=== PATIENT | female | born 1955 | race Caucasian/White ===

== ENCOUNTER → 2016-06-19 | Outpatient (REF) | payer OTHER ==
[~2016-06-19] MED LIST: ASPI81TA85 PO; BENA10TA PO; BIOT50004 PO; FERR325T3 PO; MULTTAB33 PO; OMEP40CA2 PO; PROC2.5C PR; VITA10002 PO; VITA100037 PO
[2016-06-19 13:39] LABS: TOTAL IRON BINDING CAPACITY 435 UG/DL (250-450)
[2016-06-19 13:56] LABS: VITAMIN B12 LEVEL > 2000 PG/ML
[2016-06-19 13:57] LABS: FOLATE > 24.0 NG/ML
== END ==
LOC: M LAB REF 12:28
PROVIDERS: ATTEND Internal Medicine
DX: D64.9 Anemia, unspecified (principal)

== ENCOUNTER → 2017-07-18 | Outpatient (REF) | payer OTHER ==
[2017-07-18 14:32] LABS: FOLATE 14.3 NG/ML; VITAMIN B12 LEVEL > 2000 PG/ML
[2017-07-18 14:52] LABS: IRON (FE) 37 UG/DL (50-170); PERCENT SATURATION 8.3 % (13.2-45.0); TOTAL IRON BINDING CAPACITY 445 UG/DL (250-450)
== END ==
LOC: M LAB REF 13:31
DX: D50.9 Iron deficiency anemia, unspecified (principal); Z98.84 Bariatric surgery status

== ENCOUNTER → 2017-07-24 | Outpatient (REF) | payer OTHER ==
[2017-07-24 13:57] LABS: INR 1.03; PROTHROMBIN TIME 13.6 SECONDS (12.4-14.5)
[2017-07-24 13:58] LABS: PARTIAL THROMBOPLASTIN TIME 29.4 SECONDS (26.8-37.9)
== END ==
LOC: M LAB REF 13:17
DX: M47.816 Spondylosis without myelopathy or radiculopathy, lumbar region (principal); M48.061 Spinal stenosis, lumbar region without neurogenic claudication; M51.36 Other intervertebral disc degeneration, lumbar region

== ENCOUNTER 2017-08-27 09:54 | Emergency (ER) | payer OTHER ==
[2017-08-27] MEDS: DERMABOND TOPICAL SKIN ADHESIVE TOP (10:30)
[2017-08-27] MEDS: ADACEL/BOOSTRIX VACCINE (DIPHTH/PERTUSS/ACELL/TETANUS)0.5ML SYR (90715) IM (10:36)
== END 2017-08-27 12:13 | disposition home or self-care (01) ==
LOC: M ED 12:13
DX: S68.021A Partial traumatic metacarpophalangeal amputation of right thumb, initial encounter (principal); W29.0XXA Contact with powered kitchen appliance, initial encounter; Y92.89 Other specified places as the place of occurrence of the external cause; I10 Essential (primary) hypertension; E11.9 Type 2 diabetes mellitus without complications; K21.9 Gastro-esophageal reflux disease without esophagitis; Z98.84 Bariatric surgery status; Z88.8 Allergy status to other drugs, medicaments and biological substances; Z79.899 Other long term (current) drug therapy; Z79.82 Long term (current) use of aspirin
CPT/HCPCS: 90715

== ENCOUNTER → 2018-01-22 | Outpatient (REF) | payer OTHER ==
[2018-01-22 18:47] LABS: IRON (FE) 54 UG/DL (50-170); PERCENT SATURATION 12.4 % (13.2-45.0); TOTAL IRON BINDING CAPACITY 437 UG/DL (250-450)
== END ==
LOC: M LAB REF 16:27
DX: Z98.84 Bariatric surgery status (principal); E61.1 Iron deficiency

== ENCOUNTER → 2018-07-08 | Outpatient (CLI) | payer OTHER ==
[~2018-07-08] MED LIST changes: -VITA100037 PO; +VITA100067 PO
--- NOTE | 2018-07-09 03:04 | REP ---
Clinical: Pain after fall. Technique: Three views of the sacrum and coccyx. Findings: The bilateral sacroiliac joints appear symmetric and essentially age-appropriate. While no definite acute fractures appreciated, lateral view cannot exclude a subtle nondisplaced fracture of the distal sacrum. Impression: Cannot exclude subtle nondisplaced fracture of the distal sacrum based on lateral radiograph. Electronically Signed by Francois Ca MD 07/09/2018 02:55 A
--- NOTE | 2018-07-09 03:07 | REP ---
Clinical: Trauma. Fall. Technique: AP, lateral, bilateral oblique and coned-down views of the lumbosacral spine. Findings: Chronic levoconvex scoliosis along with advanced multilevel degenerative changes including endplate sclerosis, osteophytosis, disc space narrowing and hypertrophic facet changes appreciated. No obvious acute fracture / compression injury or subluxation. Impression: Advanced multilevel degenerative changes. No acute fracture / compression injury or subluxation. Electronically Signed by Francois Ca MD 07/09/2018 02:58 A
== END ==
LOC: M WUC 12:20
PROVIDERS: ATTEND Physician Assistant
DX: M54.5 Low back pain (principal); M41.9 Scoliosis, unspecified; M51.9 Unspecified thoracic, thoracolumbar and lumbosacral intervertebral disc disorder; S00.03XA Contusion of scalp, initial encounter; X58.XXXA Exposure to other specified factors, initial encounter; Y92.89 Other specified places as the place of occurrence of the external cause; S06.0X1A Concussion with loss of consciousness of 30 minutes or less, initial encounter

== ENCOUNTER → 2019-02-04 | Outpatient (REF) | payer OTHER ==
[~2019-02-04] MED LIST changes: +CYAN100049 PO; -VITA10002 PO
[2019-02-04 12:26] LABS: PERCENT SATURATION 10.4 % (13.2-45.0)
== END ==
LOC: M LAB REF 11:59
PROVIDERS: ATTEND Internal Medicine
DX: D50.9 Iron deficiency anemia, unspecified (principal)

== ENCOUNTER → 2019-08-18 | Outpatient (REF) | payer OTHER ==
[~2019-08-18] MED LIST changes: -OMEP40CA2 PO; +OMEP40CA97 PO
[2019-08-18 13:37] LABS: IRON (FE) 39 UG/DL (50-170); PERCENT SATURATION 8.8 % (13.2-45.0); TOTAL IRON BINDING CAPACITY 441 UG/DL (250-450)
[2019-08-18 13:46] LABS: FOLATE 19.9 NG/ML; VITAMIN B12 LEVEL > 2000 PG/ML
== END ==
LOC: M LAB REF 12:52
PROVIDERS: ATTEND Internal Medicine
DX: Z98.84 Bariatric surgery status (principal); D50.9 Iron deficiency anemia, unspecified

== ENCOUNTER → 2019-10-13 | Outpatient (CLI) | payer OTHER ==
[~2019-10-13] MED LIST changes: +ALEV220T22 PO; -ASPI81TA85 PO; +ASPI81TA86 PO; +BENA20TA PO; +BENA25CA4 PO; +CVS5000S2 PO; +FERR325T82 PO; +METF500T13 PO; +MULT-90 PO; +NEUR600T PO; +OMEP-218 PO; +PERC5TAB12 PO; +XARE10TA PO
[2019-10-13 13:53] LABS: INR 1.15; PROTHROMBIN TIME 14.4 SECONDS (11.8-14.0)
[2019-10-13 14:00] LABS: HEMATOCRIT 39.4 % (36.0-47.0); HEMOGLOBIN 12.1 g/dl (12.0-15.5); MEAN CORPUSCULAR HEMOGLOBIN 24.6 pg (27.0-33.0); MEAN CORPUSCULAR HGB CONC 30.7 g/dl (32.0-36.5); MEAN CORPUSCULAR VOLUME 80.2 fl (80.0-96.0); PLATELET COUNT, AUTOMATED 167 10^3/uL (150-450); RED BLOOD COUNT 4.91 10^6/uL (4.00-5.40); WHITE BLOOD COUNT 5.2 10^3/uL (4.0-10.0)
[2019-10-13 14:05] LABS: ALBUMIN 3.9 GM/DL (3.2-5.2); ALT/SGPT 74 U/L (12-78); BILIRUBIN,TOTAL 0.5 MG/DL (0.2-1.0); BLOOD UREA NITROGEN 15 MG/DL (7-18); CALCIUM LEVEL 9.1 MG/DL (8.8-10.2); CARBON DIOXIDE LEVEL 28 MEQ/L (21-32); CHLORIDE LEVEL 106 MEQ/L (98-107); CREATININE FOR GFR 0.86 MG/DL (0.55-1.30); GLOMERULAR FILTRATION RATE > 60.0 (>45); GLUCOSE, FASTING 195 MG/DL (70-100); POTASSIUM SERUM 4.3 MEQ/L (3.5-5.1); SODIUM LEVEL 140 MEQ/L (136-145); TOTAL PROTEIN 7.2 GM/DL (6.4-8.2)
--- NOTE | 2019-10-13 14:34 | REP ---
Clinical: Preoperative assessment for left hip arthroplasty. Comparison: None . Technique: PA and lateral. Findings: The mediastinum and cardiac silhouette are normal. The lung barrett are clear and without acute consolidation, effusion, or pneumothorax. The skeletal structures are intact and normal. Impression: 1. No acute cardiopulmonary process. Electronically Signed by Francois Ca MD 10/13/2019 02:26 P
[2019-10-13 14:36] LABS: ERYTHROCYTE SEDIMENTATION RATE 10 mm/hr (0-30)
--- NOTE | 2019-10-13 17:34 | ECGEPIP ---
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
== END ==
LOC: M LAB 12:26
PROVIDERS: ATTEND Orthopaedic Surgery
DX: M16.12 Unilateral primary osteoarthritis, left hip (principal)

== ENCOUNTER → 2019-10-16 | Outpatient (CLI) | payer OTHER ==
[~2019-10-16] MED LIST changes: +ASPI81TA85 PO; -ASPI81TA86 PO
== END ==
LOC: M LABSMTC 13:58
PROVIDERS: ATTEND Anesthesiology
DX: Z03.818 Encounter for observation for suspected exposure to other biological agents ruled out (principal); Z11.59 Encounter for screening for other viral diseases
CPT/HCPCS: C9803; U0003

== ENCOUNTER 2019-10-19 06:43 | Inpatient (IN) | payer OTHER ==
[~2019-10-19] VITALS: Ht 170.2 cm; Wt 77.1 kg
[~2019-10-19 06:43] MED LIST changes: -BENA20TA PO; -OMEP-218 PO; -PERC5TAB12 PO; -XARE10TA PO
[2019-10-19] MEDS ORDERED: ceFAZolin 1GM VIAL (J0690 PER 500MG) As Ordered ONE (06:57)
[2019-10-19] MEDS ORDERED: TRANEXAMIC ACID 100 MG/ML 10ML VIAL As Ordered ONE (06:57)
[2019-10-19] MEDS ORDERED: EPINEPHrine INJ 1 MG/ML 1ML AMP As Ordered ONE (06:57)
[2019-10-19] MEDS ORDERED: BUPIVACAINE LIPOSOME/PF 1.3% 20ML VIAL (13.3MG/ML)(EXPAREL)(C9290 PER1MG) As Ordered ONE (06:58)
[2019-10-19] MEDS ORDERED: LR 1,000 ML IV ONE (07:00)
[2019-10-19] MEDS ORDERED: MIDAZOLAM INJ 2MG/2ML VIAL (J2250 PER 1MG) As Ordered ONE (07:12)
[2019-10-19] MEDS ORDERED: fentaNYL 100 MCG/2 ML INJECTION (J3010) As Ordered ONE (07:12)
[2019-10-19] MEDS ORDERED: LIDOCAINE 2% 100MG/5ML SDV (FOR ANES.) As Ordered ONE (07:13)
[2019-10-19] MEDS ORDERED: ONDANSETRON 4MG/2ML VIAL As Ordered ONE (07:13)
[2019-10-19] MEDS ORDERED: propofoL 200 MG/20 ML VIAL As Ordered ONE ×2 (07:13→08:17)
[2019-10-19] MEDS ORDERED: BUPIVACAINE/DEXTROSE 0.75% 2 ML AMP As Ordered ONE (07:18)
[2019-10-19] MEDS ORDERED: ceFAZolin 2 GM/D5W 50 ML IV BAG (J0690 PER 500MG) As Ordered ONE (07:35)
[2019-10-19] MEDS ORDERED: ceFAZolin SOD 2 GM in IV 1 EA IV ONE (07:45)
[2019-10-19] MEDS ORDERED: ACETAMINOPHEN 1000MG 100ML IV BTL (OFIRMEV) (J0131 PER 10MG) As Ordered ONE (08:22)
[2019-10-19] MEDS ORDERED: PHENYLephrine HCL 500 MCG/5 ML (100MCG/ML) SYRINGE (J2370) As Ordered ONE (09:04)
[2019-10-19] MEDS ORDERED: ePHEDrine SULFATE 25 MG/5 ML(5MG/ML) SYRINGE As Ordered ONE (09:04)
[2019-10-19] MEDS ORDERED: MORPHINE 2 MG/ML 1ML VIAL (J2270) IV PRN (09:30)
[2019-10-19] MEDS ORDERED: ONDANSETRON 4MG/2ML VIAL IV PRN ×2 (09:30→09:45)
[2019-10-19] MEDS ORDERED: fentaNYL 100 MCG/2 ML INJECTION (J3010) IV PRN (09:30)
[2019-10-19] MEDS ORDERED: LR 1,000 ML IV SCH (09:30)
[2019-10-19] MEDS ORDERED: MORPHINE 4 MG/ML 1ML VIAL/SYRINGE (J2270) IV PRN ×2 (09:45)
[2019-10-19] MEDS: oxyCODONE 5MG TAB PO PRN ×2 (10:14→12:03)
--- NOTE | 2019-10-19 11:21 | IPN ---
DATE: 10/19/2019 The patient is seen and examined. She wishes to go ahead with a left total hip arthroplasty. We consented her again today. She unfortunately did not show up to her office history and physical on Saturday, 3 days ago. So, Heidi Sen is doing that history and physical right now. She is aware of the nature of the procedure, the risks of bleeding, infection, damage to nerves, vessels, persistent pain, wear loosening, dislocation, leg length inequality, blood clots, medical problems, , among others. We will plan on doing a left total hip arthroplasty.
[2019-10-19] MEDS ORDERED: oxyCODONE 5MG TAB As Ordered ONE (12:02)
[2019-10-19 13:20] VITALS: BP 113/80
[2019-10-19 13:50] VITALS: BP 115/78
[2019-10-19 14:50] VITALS: BP 118/76
[2019-10-19 15:50] VITALS: BP 123/74
[2019-10-19] MEDS ORDERED: GABAPENTIN 300 MG CAP PO PRN (16:00)
--- NOTE | 2019-10-19 16:00 | CR.PDOC ---
General Date of Consultation: Oct 19, 2019 Consultation REASON FOR CONSULTATION/CHIEF COMPLAINT: Medical management HISTORY OF PRESENT ILLNESS: Patient is 64 years old female with past medical history of hypertension, osteoarthritis presented to the hospital for elective left hip arthroplasty which was done today. Patient denied fever or chills, chest pain, shortness of breath, palpitations, diarrhea or dysuria ALLERGIES: Please see below. HOME MEDICATIONS: Please see below. PAST MEDICAL HISTORY: Hypertension, osteoarthritis, GERD, type 2 diabetes well-controlled PAST SURGICAL HISTORY: Tonsillectomy, treatment for bilateral carpal tunnel syndrome, D&C times 2, laparoscopy with biopsy and D&C. Gastric bypass surgery FAMILY HISTORY:Her mother had diabetes, heart disease, and hypertension. She in 1996. Father had colon cancer SOCIAL HISTORY: Former smoker, no alcohol abuse, no drug abuse history REVIEW OF SYSTEMS: 10 point review system negative except as listed above PHYSICAL EXAMINATION: VITAL SIGNS: Please see below. GENERAL: awake, alert, NAD HEENT: NCAT, anicteric sclera, ANNAMARIE NECK: supple, no JVD CARDIOVASCULAR EXAMINATION: NS1S2, regular rate/rhythm RESPIRATORY EXAMINATION: CTA b/l, no wheezes/rales/rhonchi ABDOMINAL EXAMINATION: positive bowel sounds x 4, NT EXTREMITIES: no cyanosis, clubbing, left hip brace SKIN: warm, no rashes. NEUROLOGICAL EXAMINATION: AAO x 3, no motor/sensory deficits PSYCHIATRIC EXAMINATION: calm, normal affect LABORATORY DATA: Please see below. ASSESSMENT/PLAN: Patient is 64 years old female with past medical history of hypertension, osteoarthritis presented to the hospital for elective left hip arthroplasty which was done today. Patient denied fever or chills, chest pain, shortness of breath, palpitations, diarrhea or dysuria Status post left hip arthroplasty Continue pain management Hypertension Continue home meds GERD Continue PPI Type 2 diabetes Diabetes diet Continue metformin Vital Signs/I&O Vital Signs Date Time Temp Pulse Resp B/P (MAP) Pulse Ox O2 Delivery O2 Flow Rate FiO2 10/19/19 13:50 97.3 84 16 115/78 (90) 99 10/19/19 13:20 2.0 10/19/19 13:15 Nasal Cannula Laboratory Data Labs 24H Laboratory Tests 2 10/19/19 07:15: Bedside Glucose (Misc Panel) 132H Allergies Coded Allergies: iron (Verified Allergy, Intermediate, INFUSION - RASH ITCHY, 10/14/19) ENVIROMENTAL (Verified Allergy, Unknown, 10/14/19) ezetimibe (Verified Allergy, Unknown, 10/14/19) sitagliptin (Verified Allergy, Unknown, 10/14/19) Home Medications Scheduled Aspirin (Aspir 81) 81 Mg Tab, 81 MG PO DAILY, (Reported) Benazepril Hcl (Benazepril HCl) 10 Mg Tab, 20 MG PO DAILY, (Reported) Biotin (Biotin) 5,000 Mcg Cap, 5,000 MCG PO DAILY, (Reported) Cyanocobalamin (Vitamin B-12) (Vitamin B12) 5,000 Mcg Tab.rapdis, 5,000 MCG PO DAILY, (Reported) Diphenhydramine HCl (Benadryl) 25 Mg Capsule, 25 MG PO PRN, (Reported) Gabapentin (Neurontin) 600 Mg Tablet, 600 MG PO QIDP, (Reported) Metformin HCl (Metformin HCl) 500 Mg Tablet, 500 MG PO DAILY, (Reported) Multivitamin (Multivitamin) 1 Each Tablet, 1 EACH PO DAILY, (Reported) Omeprazole (Omeprazole) 40 Mg Cap, 20 MG PO BID, (Reported) Scheduled PRN Naproxen Sodium (Aleve) 220 Mg Tablet, 220 MG PO PRN PRN for PAIN, (Reported) FRANCES AKINS DO Oct 19, 2019 16:00
[2019-10-19] MEDS: PERCOCET 5MG/325MG TAB PO PRN (16:03)
[2019-10-19] MEDS: LR 1,000 ML IV SCH ×2 (16:04→23:48)
[2019-10-19] MEDS: ceFAZolin SOD 2 GM in IV 1 EA IV SCH (16:04)
[2019-10-19] MEDS ORDERED: OMEP-218 PO (16:15)
[2019-10-19] MEDS ORDERED: BENA20TA PO (16:15)
[2019-10-19 17:00] VITALS: BP 123/75
[2019-10-19] MEDS: metFORMIN (GLUCOPHAGE) 500 MG TAB PO SCH (18:41)
[2019-10-19] MEDS: OMEPRAZOLE 20 MG CAP PO SCH (20:34)
[2019-10-19 22:00] VITALS: BP 122/79
[2019-10-20] MEDS: ceFAZolin SOD 2 GM in IV 1 EA IV SCH (00:24)
[2019-10-20] MEDS: PERCOCET 5MG/325MG TAB PO PRN (01:16)
[2019-10-20 06:00] VITALS: BP 166/81
[2019-10-20 06:30] LABS: HEMATOCRIT 34.4 % (36.0-47.0); HEMOGLOBIN 10.8 g/dl (12.0-15.5); MEAN CORPUSCULAR HEMOGLOBIN 24.7 pg (27.0-33.0); MEAN CORPUSCULAR HGB CONC 31.4 g/dl (32.0-36.5); MEAN CORPUSCULAR VOLUME 78.5 fl (80.0-96.0); PLATELET COUNT, AUTOMATED 122 10^3/uL (150-450); RED BLOOD COUNT 4.38 10^6/uL (4.00-5.40); WHITE BLOOD COUNT 7.5 10^3/uL (4.0-10.0)
[2019-10-20] MEDS ORDERED: PERCOCET 5MG/325MG TAB PO PRN (06:45)
[2019-10-20 06:55] LABS: BLOOD UREA NITROGEN 12 MG/DL (7-18); CALCIUM LEVEL 8.6 MG/DL (8.8-10.2); CARBON DIOXIDE LEVEL 29 MEQ/L (21-32); CHLORIDE LEVEL 106 MEQ/L (98-107); CREATININE FOR GFR 0.67 MG/DL (0.55-1.30); GLOMERULAR FILTRATION RATE > 60.0 (>45); GLUCOSE, FASTING 145 MG/DL (70-100); MAGNESIUM LEVEL 1.9 MG/DL (1.8-2.4); POTASSIUM SERUM 4.1 MEQ/L (3.5-5.1); SODIUM LEVEL 140 MEQ/L (136-145)
[2019-10-20] MEDS ORDERED: XARE10TA PO (07:09)
[2019-10-20] MEDS ORDERED: PERC5TAB12 PO (07:09)
[2019-10-20] MEDS: metFORMIN (GLUCOPHAGE) 500 MG TAB PO SCH (08:00)
[2019-10-20] MEDS: OMEPRAZOLE 20 MG CAP PO SCH (08:08)
[2019-10-20] MEDS ORDERED: MIRALAX *UNIT DOSE* 17GM PACKET PO SCH (09:00)
[2019-10-20] MEDS ORDERED: ASPIRIN 81 MG ENTERIC TAB PO SCH (09:00)
[2019-10-20] MEDS ORDERED: MOM 30ML SUSPENSION UDC PO SCH (09:00)
--- NOTE | 2019-10-20 10:21 | REP ---
LEFT HIP: Two views. HISTORY: Postop. FINDINGS: AP and lateral views of the left hip demonstrate a left hip arthroplasty in good position. Lateral skin dalia are seen. Periarticular soft tissue emphysema is seen. Mild vascular calcification is noted. IMPRESSION: Left hip arthroplasty. Electronically Signed by Rufus Aguilar MD 10/20/2019 11:16 A
[2019-10-20] MEDS ORDERED: RIVAROXABAN 10 MG TAB (XARELTO) PO SCH (18:00)
--- NOTE | 2019-10-21 10:39 | RO ---
DATE OF PROCEDURE: 10/19/2019 PREOPERATIVE DIAGNOSIS: Left hip osteoarthritis. POSTOPERATIVE DIAGNOSIS: Left hip osteoarthritis. PROCEDURE: Left total hip arthroplasty with the standard [place], size 7, + 5, 36 ball and a 52 acetabular component. SURGEON: Dr. Dewayne Sen [employer] PREP TEACHER: RADHA Victor ANESTHESIA: Spinal ESTIMATED BLOOD LOSS: 200. COMPLICATIONS: None. INDICATIONS: 64-year-old who has had gradually worsening left hip pain. She wished to have a hip arthroplasty. She understood the nature of this and the risks associated with it. Preoperative clearance was obtained. DESCRIPTION OF PROCEDURE: The patient was taken to the operative and placed in a supine position after spinal anesthesia was induced. She was then turned into the right lateral decubitus position on the [place] positioner and the left hip was prepped and draped in the usual sterile fashion. A time out was performed. A longitudinal incision was made over the lateral aspect of the left hip. Sharp dissection was carried down through subcutaneous tissue until the fascia was encountered. The fascia was fairly thin proximally, but I did divide this and then exposed the anterolateral aspect of the hip, dividing the anterior 40% of the abductor off. We gradually externally rotated the hip and dislocated it without difficulty. I then used a canal initiating reamer, the canal finding reamer and the lateralizing reamer and sequentially reamed up to a size 7, which had good purchase and this is what was templated to. I then made the neck cut at about three-quarters of a fingerbreadth up from the lesser trochanter and removed the ball. We directed our attention to the acetabulum. Anterior and posterior retractors were placed. With some difficulty, I was able to remove the labrum and soft tissue from around the acetabulum and realized that I needed to medialize it a few millimeters. I then sequentially reamed up to a size 51, which had good concentric reaming and good bleeding bone. I then placed the actual acetabular component after irrigating, impacted it in place in the appropriate amount of anteversion and horizontal tilt, and excellent fit was noted. We made sure it was well seated. The apex hole eliminator was placed and the 36 x 52 liner was then inserted and was impacted in place until it was well seated. We directed our attention back to the femur and gradually broached up to a size 7, which had a good fit and fill. I did also remove some osteophytes from the anterior and posterior aspect the acetabulum. A trial reduction was performed with a 1.5 and a 5 neck length and at this point I had some difficulty even with both sizes getting it over the anterior aspect the acetabulum. I think there was some soft tissue in the way and I was a little bit concerned about scuffing of the head, so I ended up just selecting a standard metal head. I was concerned about abrading the ceramic head, and a metal on poly I think is certainly very acceptable in her age group. Once I was satisfied with the reductions and once the hip was reduced, actually the +5 seemed to have the best stability. There was minimal shuck in full extension, excellent stability in extension and external rotation and flexion and internal rotation. We redislocated the hip, removed the trial components, irrigated, and impacted in the actual size 7 standard stem and seated it down. Dried the [place] taper and impacted on the +5, 36 ball and then had irrigated and placed the TXA deep in the tissues and the Exparel deep in the tissues. Then reduced the hip and I was able to get the soft tissue out of the way and bring the head around into the acetabular component without too much difficulty. I then trialed the hip, put it through a range of motion and was very pleased with the stability. Soft tissue tension was appropriate. I then copiously irrigated, repaired the minimus with #1 Vicryl suture, the abductor with #1 Vicryl suture through several bone holes, and the fascia lucas with #1 Vicryl suture and running Stratafix suture in both directions. I then irrigated and we closed the subcutaneous with #2-0 Vicryl and the skin with dalia. Sterile dressing was applied. She has taken to recovery room in stable condition. There were no known complications. The plan will be routine postoperative. The family services assistant was instrumental in holding retractors, assisting in reducing and dislocating the hip and assisting in wound closure.
== END 2019-10-20 12:17 | disposition home or self-care (01) | DRG 470 ==
LOC: M OR 06:43 → M MS5PR 13:16
PROVIDERS: ADMIT Orthopaedic Surgery; ATTEND Orthopaedic Surgery
PROC: 0SRB02Z Replacement of Left Hip Joint with Metal on Polyethylene Synthetic Substitute, Open Approach (ICD-10-PCS; principal; 2019-10-19 07:30)
DX: M16.12 Unilateral primary osteoarthritis, left hip (principal); I10 Essential (primary) hypertension; K21.9 Gastro-esophageal reflux disease without esophagitis; E11.9 Type 2 diabetes mellitus without complications; J30.9 Allergic rhinitis, unspecified; Z98.84 Bariatric surgery status; Z87.891 Personal history of nicotine dependence; Z79.84 Long term (current) use of oral hypoglycemic drugs; Z79.899 Other long term (current) drug therapy; Z79.82 Long term (current) use of aspirin; Z88.8 Allergy status to other drugs, medicaments and biological substances

== ENCOUNTER → 2020-02-17 | Outpatient (REF) | payer OTHER ==
[~2020-02-17] MED LIST changes: -ASPI81TA85 PO; +ASPI81TA86 PO; +BENA20TA PO; +OMEP-218 PO; +PERC5TAB12 PO; +XARE10TA PO
[2020-02-17 13:01] LABS: PERCENT SATURATION 8.1 % (13.2-45.0)
== END ==
LOC: M LAB REF 11:29
PROVIDERS: ATTEND Internal Medicine
DX: Z98.84 Bariatric surgery status (principal)

== ENCOUNTER → 2020-03-21 | Outpatient (REF) | payer OTHER ==
[2020-03-21 15:54] LABS: PERCENT SATURATION 8.3 % (13.2-45.0)
== END ==
LOC: M LAB REF 11:25
PROVIDERS: ATTEND Internal Medicine
DX: D50.9 Iron deficiency anemia, unspecified (principal)

== ENCOUNTER → 2020-06-01 | Outpatient (CLI) | payer OTHER ==
[~2020-06-01] MED LIST changes: +ISOVUE-300 61% 50ML VIAL As Ordered ONE; +LIDOCAINE 1% MDV 20ML VIAL As Ordered ONE; +methylPREDNISolone SUSP 40MG/ML 1ML VIAL (DEPO MEDROL) As Ordered ONE
--- NOTE | 2020-06-02 08:10 | REP ---
INDICATION: RIGHT HIP OSTEOARTHRITIS. COMPARISON: None TECHNIQUE: The procedure was performed by GERARDO Craig, under the direct supervision of Dr. Aguilar. The benefits and risks of the procedure were explained to the patient, and an informed consent was obtained. Directly prior to the start of the procedure, a formal time-out was completed in the procedure room. The right femoral neck joint space was localized using fluoroscopic guidance. The skin was prepped and draped in a sterile fashion. Approximately 5 mL of 1% Lidocaine 10 mg/ml was used as a local anesthetic. Using fluoroscopic guidance, a #22 gauge spinal needle was inserted and advanced into the right femoral neck joint space. Approximately 1 mL of Isovue 300 was injected to verify placement. Five mL of a solution containing 3 mL 1% lidocaine 10 mg/ml and 2 mL Depo-Medrol 40 milligrams/milliliter was injected into the joint space. The needle was removed and hemostasis was achieved. FINDINGS: The patient tolerated the procedure well and there were no immediate complications. IMPRESSION: 1. Right hip pain injection under fluoroscopic guidance. 0.1 minutes of fluoroscopy time was utilized for this procedure. Some fluoroscopic images are performed with last image hold technology. These images require no additional radiation. <Electronically signed by Nanci Upton > 06/01/20 1620 <Electronically signed by Scar Aguilar > 06/02/20 [id number]
== END ==
LOC: M RADPRO 10:42
PROVIDERS: ATTEND Physician Assistant Surgical
DX: M16.11 Unilateral primary osteoarthritis, right hip (principal)
CPT/HCPCS: 20610; 77002; J1030; Q9967

== ENCOUNTER → 2020-08-02 | Outpatient (CLI) | payer OTHER ==
[~2020-08-02] MED LIST changes: -ISOVUE-300 61% 50ML VIAL As Ordered ONE; -LIDOCAINE 1% MDV 20ML VIAL As Ordered ONE; -methylPREDNISolone SUSP 40MG/ML 1ML VIAL (DEPO MEDROL) As Ordered ONE
--- NOTE | 2020-08-02 11:54 | REP ---
INDICATION: TROCHANTERIC BURSITIS RIGHT HIP injury July 2019 in October 2019, pain COMPARISON: None. TECHNIQUE: Coronal T1, STIR through the pelvis, axial, coronal, sagittal T2 fat sat right hip. FINDINGS: The visualized osseous structures demonstrate normal bone marrow signal. There is no bone marrow edema or occult fracture. There is no evidence of avascular necrosis. There is a tear of the posterior labrum particularly superiorly. There is also a tear of the anterior labrum. There is ill-defined high signal on T2 weighted images along the greater trochanter within tendinous structures, compatible with greater trochanteric tendonobursitis. Other surrounding soft tissue structures demonstrate no abnormal signal. There is artifact noted from the metallic prosthesis of the left hip. The visualized intrapelvic structures are unremarkable. IMPRESSION: Anterior and posterior labral tears. Findings compatible with greater trochanteric tendonobursitis. <Electronically signed by Eddie Burrows > 08/02/20 [id number]
== END ==
LOC: M RAD 09:54
PROVIDERS: ATTEND Orthopaedic Surgery
DX: M70.61 Trochanteric bursitis, right hip (principal); S73.191A Other sprain of right hip, initial encounter; Y92.9 Unspecified place or not applicable; Y93.9 Activity, unspecified; Y99.9 Unspecified external cause status

== ENCOUNTER → 2020-08-17 | Outpatient (REF) | payer OTHER ==
[2020-08-17 18:30] LABS: FOLATE > 24.0 NG/ML; VITAMIN B12 LEVEL > 2000 PG/ML
== END ==
LOC: M LAB REF 16:26
PROVIDERS: ATTEND Internal Medicine
DX: D50.9 Iron deficiency anemia, unspecified (principal); Z98.84 Bariatric surgery status

== ENCOUNTER → 2020-08-26 | Outpatient (CLI) | payer OTHER ==
[~2020-08-26] MED LIST changes: +ISOVUE-300 61% 50ML VIAL As Ordered ONE; +LIDOCAINE 1% MDV 20ML VIAL As Ordered ONE; +TRIAMCINOLONE ACETONIDE SUSP 40 MG/ML VIAL (J3301) As Ordered ONE
--- NOTE | 2020-08-26 16:19 | REP ---
INDICATION: TROCHANTERIC BURSITIS RT HIP. COMPARISON: None. TECHNIQUE: The procedure was performed under the direct supervision of Dr. Aguilar. The benefits and risks including but not limited to pain infection and bleeding and anaphylaxis were explained to the patient and informed consent was obtained. The right femoral neck was localized using fluoroscopic guidance. The skin was prepped and draped in a sterile fashion. 1% lidocaine was used as a local anesthetic. Using fluoroscopic guidance, and last image hold technology, a 22-gauge spinal needle was inserted and advanced to the femoral neck. 0.5 ml of Isovue-300 was injected to verify placement. Six ml of a solution containing 5 ml of 1% Xylocaine and 1 mL of Kenalog 40 mg was injected. The needle was then removed. The patient tolerated the procedure well and there were no immediate complications. Less than 6 seconds of fluoro time was utilized for this procedure. FINDINGS: None IMPRESSION: Fluoro guidance for right hip injection. <Electronically signed by Shan Samaniego > 08/26/20 1608 <Electronically signed by Scar Aguilar > 08/26/20 1619
== END ==
LOC: M RADPRO 13:24
PROVIDERS: ATTEND Orthopaedic Surgery
DX: M70.61 Trochanteric bursitis, right hip (principal)
CPT/HCPCS: 20610; 77002; J3301; Q9967

== ENCOUNTER → 2020-11-17 | Outpatient (CLI) | payer OTHER ==
[~2020-11-17] MED LIST changes: -ISOVUE-300 61% 50ML VIAL As Ordered ONE; -LIDOCAINE 1% MDV 20ML VIAL As Ordered ONE; +OMEP40CA4 PO; -OMEP40CA97 PO; -TRIAMCINOLONE ACETONIDE SUSP 40 MG/ML VIAL (J3301) As Ordered ONE
--- NOTE | 2020-11-17 10:22 | REP ---
INDICATION: RIGHT HIP OSTEOARTHRITIS - LABS AND EKG FIRST. COMPARISON: Comparison chest x-ray October 13, 2019. TECHNIQUE: Two views.. FINDINGS: The lungs are well inflated and free of infiltrate. The pleural angles are sharp. The heart size is normal. Pulmonary vasculature is not increased. No significant bony abnormality is seen. IMPRESSION: Negative chest x-ray. <Electronically signed by Scar Aguilar > 11/17/20 [id number]
[2020-11-17 10:42] LABS: MEAN CORPUSCULAR HEMOGLOBIN 21.6 pg (27.0-33.0); MEAN CORPUSCULAR HGB CONC 29.4 g/dl (32.0-36.5); MEAN CORPUSCULAR VOLUME 73.6 fl (80.0-96.0); PLATELET COUNT, AUTOMATED 196 10^3/uL (150-450); RED BLOOD COUNT 4.62 10^6/uL (4.00-5.40); WHITE BLOOD COUNT 5.8 10^3/uL (4.0-10.0)
[2020-11-17 10:56] LABS: INR 0.99; PROTHROMBIN TIME 13.3 SECONDS (12.5-14.3)
[2020-11-17 11:09] LABS: ERYTHROCYTE SEDIMENTATION RATE 17 mm/hr (0-30)
[2020-11-17 11:14] LABS: ALBUMIN 3.9 GM/DL (3.2-5.2); ALT/SGPT 55 U/L (12-78); BILIRUBIN,TOTAL 0.4 MG/DL (0.2-1.0); BLOOD UREA NITROGEN 15 MG/DL (7-18); CALCIUM LEVEL 9.3 MG/DL (8.8-10.2); CARBON DIOXIDE LEVEL 27 MEQ/L (21-32); CHLORIDE LEVEL 110 MEQ/L (98-107); CREATININE FOR GFR 0.91 MG/DL (0.55-1.30); GLOMERULAR FILTRATION RATE > 60.0 (>45); GLUCOSE, FASTING 103 MG/DL (70-100); POTASSIUM SERUM 4.8 MEQ/L (3.5-5.1); SODIUM LEVEL 143 MEQ/L (136-145)
--- NOTE | 2020-11-19 18:23 | ECGEPIP ---
[facility] Test Date: 2020-11-17 Pat Name: JABARI DUGAN Department: Room: - Gender: Female Telemedicine Physician: rf : [id number] Requested By: Dewayne Sen Order Number: [id number] Reading MD: Adebayo Miles Measurements Intervals [place] Rate: 69 P: 78 MT: 104 QRS: 39 QRSD: 96 T: 19 QT: 374 QTc: 400 Interpretive Statements Sinus rhythm with short MT RSR' IN V1 OR V2, PROBABLY NORMAL VARIANT (NEW) Last tracing on 10/13/19, 12:45 Electronically Signed on 11-19-2020 18:23:08 EDT by Adebayo Miles
== END ==
LOC: M LAB 09:40
PROVIDERS: ATTEND Orthopaedic Surgery
DX: M16.11 Unilateral primary osteoarthritis, right hip (principal)

== ENCOUNTER → 2021-01-27 | Outpatient (CLI) | payer OTHER ==
--- NOTE | 2021-01-27 15:03 | REP ---
INDICATION: RT LEG PAIN SWELLING ? DVT. COMPARISON: None. TECHNIQUE: Multiple ultrasonographic images of the deep venous structures of the right lower extremity were obtained from the inguinal ligament to the ankle. Venous compression techniques, color doppler imaging, and augmentation techniques were also obtained where appropriate. As per the ACR guidelines the anterior tibial vein can not be effectively evaluated. Only compression techniques in the calf on the peroneal and posterior tibial veins was attempted/performed. FINDINGS: There is no abnormal echogenic material seen within any of the visualized deep venous structures that would suggest acute thrombosis. Coaptation is unremarkable throughout. Doppler interrogation shows an expected response to respiratory variability and augmentation in the thigh. Compression techniques in the calf were unobtainable. The color flow images show what appears to be a normal vascular pattern throughout the thigh. Seen in the right posterior popliteal fossa a 3.5 x 0.5 x 2.3 cm sized mixed but predominantly cystic area was identified. IMPRESSION: There is no ultrasonographic evidence of deep venous thrombosis involving any of the visualized deep venous structures of the right lower extremity as described above. Due to technical parameters calf vein DVT can not be ruled out. 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 <Electronically signed by Rui Birmingham > 01/27/21 [id number]
== END ==
LOC: M RAD 14:16
PROVIDERS: ATTEND Orthopaedic Surgery
DX: M79.661 Pain in right lower leg (principal)

== ENCOUNTER 2021-03-02 15:15 | Emergency (ER) | payer MEDICARE, OTHER ==
[~2021-03-02] VITALS: Ht 170.2 cm; Wt 83.7 kg
[~2021-03-02 15:15] MED LIST changes: -XARE15TA PO
[2021-03-02 15:16] VITALS: BP 163/75
--- OUTSIDE RECORDS SUMMARY | 2021-03-02 15:22 | CCD | Continuity of Care Document ---
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 Essential hypertension Amadeo Estrada MD Onset: 1 Diabetes mellitus Amadeo Estrada MD Onset: 04/16/2011 Nonproliferative retinopathy due to diabetes mellitus Eliane Falk RN Canp Onset: 04/16/2011 Type 2 diabetes mellitus RADHA Muhammad Onset: 02/20/20 17 Social History Type Date Description Comments Sex Unknown ETOH Use Denies alcohol use Tobacco Use Start: Unknown Patient has never smoked Allergies, Adverse Reactions, Alerts Active Allergies Criticality Reaction | Severity Comments Date Iron Unable to assess criticality 06/19/2016 Medications Active Medications SIG Qnty Indications Ordering Provide r Date Hydrocodone Bitartrate/Acetaminophen 5-325mg Tablets Take 1 Tablet By Mouth AT Bedtime, Surg Date 12/07/2020 25tabs Z47.1 Dewayne Nickerson MD 01/09/2021 Z96.641 Xarelto 10mg Tablets 1 tab by mouth daily for 35 days for post op hip surgery. 35tabs Dewayne tellez MD 11/03/2020 Tizanidine HCL 2mg Capsules 1 tab by mouth every day at bedtime as needed 90caps DMaged forrest MD 03/01/2020 Gabapentin 600mg Tablets take 1 tablet by mouth 4 times daily . do not exceed 4 per 24 hours 120tabs Elisa Goncalves MD 11/28/2018 Biotin 5000mcg Capsules qd Amadeo Estrada MD 09/20/2010 Vitamin D 1000Unit Tablets 1 po qd Amadeo Estrada MD 09/20/2010 Ecotrin Low Strength 81mg Tablets Amadeo Islas MD 11/01/2009 Vitamin B12 1000mcg Tablets ER 1 by mouth every day Unknown Benazepril HCL 10mg Tablets 1 by mouth every day Unknown Omeprazole 20mg Capsules DR 1 by mouth every day Unknown History Medications Mupirocin 2% Ointment apply a pea sized amount to the nasal passages 3 times a day for 5 days prior to surgery 22gm Dewayne Nickerson MD 11/03/2020 - 12/22/2020 Oxycodone HCL 5mg Capsules 1 tablets by mouth every 6 hours as needed for post op pain 20caps S migdalia Nickerson MD 11/03/2020 - 01/09/2021 Immunizations Description No Information Available Vital Signs Date Vital Result Comment 12/06/2020 12:47pm Body Temperature 97.5 F Height 65.5 inches 5'5.50" Weight 181.12 lb BMI (Body Mass Index) 29.7 kg/m2 10/03/2020 4:51pm Height 67 inches 5'7" Weight 180.00 lb BMI (Body Mass Index) 28.2 kg/m2 Results Test Acquired Date Facility Test Result H/L Range Note Comprehensive Metabolic Prof 12/08/[address] [address] Glu 127 mg/dL High 70-110 1 BUN 17 mg/dL Normal 7-23 Cre 0.665 mg/dL Normal 0.500-1.300 GFR > 60 mL/min Normal Chloride 109 mmol/L Normal 99-110 Na 143 mmol/L Normal 136-147 Potassium 4.7 mmol/L Normal 3.5-5.1 Tco2 27 mmol/L Normal 20-33 Anion Gap 11.7 Normal 10.0-20.0 CA 8.3 mg/dL Normal 8.3-10.7 Alkaline Phos 47 U/L Normal 45-117 TP 5.9 g/dL Low 6.0-7.8 Alb 2.8 g/dL Low 3.5-5.0 2 GL 3.1 g/dL Normal 2.3-3.5 A/G 0.9 Low 1.0-2.5 T. Bilirubin 0.4 mg/dL Normal 0.1-1.1 3 Alti 36 U/L Normal 6-54 4 Ast 45 U/L High 6-38 5 Laboratory test finding 12/07/2020 [facility] [address] [place] [address] Lfglu 159 mg/dL High 70-110 Type&Screen 12/02/2020 [facility] [address] [place] [address] Blood Type B POSITIVE Normal Antibody Screen NEGATIVE Normal Laboratory test finding 12/02/2020 [facility] [address] [place] [address] Bretype B POSITIVE Normal Laboratory test finding 12/02/2020 [facility] [address] [place] [address] [id number] Rheonix Negative Normal Negative 6 Prothrombin Time/Inr 11/17/[address] [address] (315)- - Prothrombin Time 13.3 seconds Normal 12.5-14.3 Inr 0.99 Normal 7 Complete Blood Count 11/17/[address] [address] (315)- - White Blood Count 5.8 10 Normal 4.0-10.0 Red Blood Count 4.62 10 Normal 4.00-5.40 Hemoglobin 10.0 g/dL Low 12.0-15.5 Hematocrit 34.0 % Low 36.0-47.0 Mean Corpuscular Volume 73.6 fl Low 80.0-96.0 Mean Corpuscular Hemoglobin 21.6 pg Low 27.0-33.0 Mean Corpuscular HGB Conc 29.4 g/dL Low 32.0-36.5 Red Cell Distribution Width 17.1 % High 11.5-14.5 Platelet Count, Automated 196 10 Normal 150-450 Nucleated Red Blood Cell % 0.0 % Normal 0-0 Laboratory test finding 11/17/2020 [facility] [address] [place] [address] (315)- - Erythrocyte Sedimentation Rate 17 mm/hr Normal 0-30 Comprehensive Metabolic Profil 11/17/2020 [facility] [address] [place] [address] (315)- - Glucose, Fasting 103 mg/dL High 70-100 Blood Urea Nitrogen 15 mg/dL Normal 7-18 Creatinine For GFR 0.91 mg/dL Normal 0.55-1.30 Glomerular Filtration Rate > 60.0 Normal >45 8 Sodium Level 143 mEq/L Normal 136-145 Potassium Serum 4.8 mEq/L Normal 3.5-5.1 Chloride Level 110 mEq/L High 98-107 Carbon Dioxide Level 27 mEq/L Normal 21-32 Anion Gap 6 mEq/L Low 8-16 Calcium Level 9.3 mg/dL Normal 8.8-10.2 Ast/Sgot 50 U/L High 7-37 Alt/SGPT 55 U/L Normal 12-78 Alkaline Phosphatase 77 U/L Normal 45-117 Bilirubin,Total 0.4 mg/dL Normal 0.2-1.0 Total Protein 7.0 GM/DL Normal 6.4-8.2 Albumin 3.9 GM/DL Normal 3.2-5.2 Albumin/Globulin Ratio 1.3 Normal 1.2-2.2 1 Patients taking Sulfasalazin e may have falsely depressed Glucose levels. Patients taking Sulfapyridine may have falsely elevated Glucose levels. Patients should be drawn for Glucose before the initial administration of either drug. 2 ESRD Dialysis patient Albumi n reference range: 2.9-4.4 g/dL 3 The Dimension [place] Total Bi lirubin is not recommended for patients undergoing treatment with eltrombopag (Promacta) due to the potential for falsely elevated results. 4 Patients taking Sulfasalazin e and/or Sulfapyridine may have falsely depressed ALT levels. Patients should be drawn for ALT before the initial administration of either drug. 5 Patients taking Sulfasalazin e and/or Sulfapyridine may have falsely depressed AST levels. Patients should be drawn for AST before the initial administration of either drug. 6 The [employer] COVID-19 MDx Ass ay is an endpoint RT-PCR assay intended for the qualitative detection of nucleic acid from SARS-CoV-2 virus. Positive results are indicative of the presence of SARS-CoV-2 RNA; clinical correlation with patient history and other diagnostic information is necessary to determine patient infection status. Negative results do not preclude SARS-CoV-2 infection and should not be used as the sole basis for patient management decisions. The Rheonix MDx Assay is only for use under the Food and Drug Administration's Emergency Use Authorization. 7 THERAPUTIC HUMAN INR VALUES INDICATIONS NORMAL RANGES PROPHYLAXIS/TREATMENT OF: VENOUS THROMBOSIS 2.0-3.0 PULMONARY EMBOLISM 2.0-3.0 PREVENTION OF SYSTEMIC EMBOLISM FROM: TISSUE HEART VALVES 2.0-3.0 ACUTE MYOCARDIAL INFARCTION 2.0-3.0 VALVULAR HEART DISEASE 2.0-3.0 ATRIAL FIBRILLATION 2.0-3.0 MECHANICAL VALVES(HIGH RISK) 2.5-3.5 RECURRENT MYOCARDIAL INFARCTION 2.5-3.5 8 Units are mL/min/1.73 m2 Chronic Kidney Disease Staging per NKF: Stage I & II GFR >=60 Normal to Mildly Decreased Stage III GFR 30-59 Moderately Decreased Stage IV GFR 15-29 Severely Decreased Stage V GFR <15 Very Little GFR Left ESRD GFR <15 on DAIRY POWDER MIXER OPERATOR Procedures Date Code Description Status 01/27/2021 91659 X-Ray Hip Unilateral With Pelvis 2-3 Views Completed 01/26/2021 58219 Therapeutic Procedure, Each 15 M inutes Completed 01/26/2021 11828 Therapeutic Procedure, Each 15 M inutes Completed 01/11/2021 55114 Therapeutic Procedure, Each 15 M inutes Completed 01/11/2021 62420 Therapeutic Procedure, Each 15 M inutes Completed 01/05/2021 16599 Therapeutic Procedure, Each 15 M inutes Completed 01/05/2021 04966 Therapeutic Procedure, Each 15 M inutes Completed 12/26/2020 14673 Physical Therapy Eval - Low Comp lexity Completed 12/07/2020 45208 Arthroplasty "Total Hip" W/ Or W /O Graft Completed 10/03/2020 90492 Office/Outpatient Established Hi gh MDM 40-54 Min Completed 10/03/2020 69447 X-Ray Pelvis Ap Only 1-2 Views C ompleted 08/15/2020 81796 Office/Outpatient Established Mo d MDM 30-39 Min Completed 08/15/2020 24838 X-Ray Hip Unilateral With Pelvis 2-3 Views Completed Medical Devices Description No Information Available Encounters Type Date Location Provider Dx Diagnosis Office Visit 01/27/2021 1:30p Caleb Nickerson MD Z96.641 Presence of right artificial hip joint M79.661 Pain in right lower leg Office Visit 12/21/2020 1:30p Crescoolivier Nickerson MD Z47.1 Aftercare following joint replacement surgery Z96.641 Presence of right artificial hip joint Office Visit 12/06/2020 10:00a Crescoolivier Nickerson PA-C Z01.818 Encounter for other preprocedural examination 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, right hip Office Visit 10/03/2020 3:30p Caleb Nickerson MD M16.11 Unilateral primary osteoarthritis, right hip M70.61 Trochanteric bursitis, right hip Office Visit 08/15/2020 2:15p Caleb Nickerson MD M16.11 Unilateral primary osteoarthritis, right hip M70.61 Trochanteric bursitis, right hip Assessments Date Code Description Provider 01/27/2021 Z96.641 Presence of right artificial hip joint Dewayne Nickerson MD 01/27/2021 M79.661 Pain in right lower leg Dewayne Nickerson MD 01/26/2021 Z47.1 Aftercare following joint replac ement surgery Krystal Peterson, CREDIT UNION EXAMINER 01/26/2021 Z96.641 Presence of right artificial hip joint Krystal Peterson, CREDIT UNION EXAMINER 01/11/2021 Z47.1 Aftercare following joint replac ement surgery Krystal Peterson, CREDIT UNION EXAMINER 01/11/2021 Z96.641 Presence of right artificial hip joint Krystal Peterson, CREDIT UNION EXAMINER 01/05/2021 Z47.1 Aftercare following joint replac ement surgery Danamarie Ortolano, CREDIT UNION EXAMINER 01/05/2021 Z96.641 Presence of right artificial hip joint Danamarie Ortolano, CREDIT UNION EXAMINER 12/26/2020 Z47.1 Aftercare following joint replac ement surgery [facility]ira Arora, [facility] 12/26/2020 Z96.641 Presence of right artificial hip joint Samira Arora, [facility] 12/21/2020 Z47.1 Aftercare following joint replac ement surgery Dewayne Nickerson MD 12/21/2020 Z96.641 Presence of right artificial hip joint Dewayne Nickerson MD 12/07/2020 M16.11 Unilateral primary osteoarthriti s, right hip Dewayne Nickerson MD 12/06/2020 Z01.818 Encounter for other preprocedura l examination Heidi Nickerson PA-C 12/06/2020 M16.11 Unilateral primary osteoarthriti s, right hip Heidi Nickerson PA-C 10/03/2020 M16.11 Unilateral primary osteoarthriti s, right hip Dewayne Nickerson MD 10/03/2020 M70.61 Trochanteric bursitis, right hip Dewayne Nickerson MD 08/15/2020 M16.11 Unilateral primary osteoarthriti s, right hip Dewayne Nickerson MD 08/15/2020 M70.61 Trochanteric bursitis, right hip Dewayne Nickerson MD Plan of Treatment 01/27/2021 - Dewayne Nickerson MD* Z96.641 Presence of right artificial hip joint * Follow up:* 3 months right hip recheck with SBF * M79.661 Pain in right lower leg* New Xrays:* Ultrasound Right Lower Leg, Ordered: 01/27/21 Functional Status Description No Information Available Mental Status Description No Information Available Referrals Refer to Reason for Referral Status Appt Date Dewayne Nickerson MD Physical Therapy Right Hip p er Katia L at [facility] no auth req pt gets 80 visits a year after 25 a pre d is recommended for medical necessity patient has 25 dollar co pay and is going to [facility] passed to PT dept sw. Created [address] [place] [address], [address] [place] [address] [phone] Dewayne Nickerson MD SURGERY PER SAHARA AT [facility] A [facility] DEPT NO AUTH REQUIRED FOR TOTAL RT HIP(35112) AND PER MALLORY AT [facility] DEPT. NO AUTH REQUIRED AND COVERED AT 100% SAME DAY SURGERY IF NEEDS MORE TIME HOSPITAL WILL GET THAT TO SURGERY NT CALL REF #[id number] Created [address] [place] [address], [address] [place] [address] [phone] Heidi Nickerson PA-C FLUORO INJ NO AUTH REQUIRED PER ANNY Victor FOR FLUOROSCOPIC INJECTION ([id number], [id number]) TO BETTY CedilloMaged DG Created [address] [facility] [address] [place] [address] [phone] Mckinley, Dewayne Gill MD REF. NO AUTH REQUIRED FOR R EF TO DR KEVIN QUICK TO TRANS NT Created [facility], [address] [place] [address] [phone]
--- OUTSIDE RECORDS SUMMARY | 2021-03-02 15:22 | CCD | Continuity of Care Document ---
Author Author Alva NICKERSON MD Organization Unknown Address [address] [place] [address], [facility] [address] [place] [address] Phone [phone] Care Team Providers Care Final Inspector Movement Assembly Name Role Phone Amadeo Estrada MD AUTM [phone] Problems Active Problems Provider Date Pure hypercholesterolemia [...] Use Start: Unknown Patient has never smoked Allergies and adverse reactions Active Allergies Criticality Reaction | Severity Comments Date Iron Unable to assess criticality 06/19/2016 Medications Active Medications SIG Qnty Indications Ordering Provide r Date Hydrocodone Bitartrate/Acetaminophen 5-325mg Tablets Take 1 Tablet By Mouth AT Bedtime, Surg Date 12/07/2020 25tabs Z47.1 Dewayne iNckerson MD 01/09/2021 Z96.641 Xarelto 10mg Tablets 1 tab by mouth daily for 35 days for post op hip surgery. 35tabs Dewayne tellez MD 11/03/2020 Tizanidine HCL 2mg Capsules 1 tab by mouth every day at bedtime as needed 90caps DMaged forrest MD 03/01/2020 Gabapentin 600mg Tablets take 1 tablet by mouth 4 times daily . do not exceed 4 per 24 hours 120tabs D. Peter Vaneenenaam, MD 11/28/2018 Biotin 5000mcg Capsules qd Amadeo [...] H/L Range Note Comprehensive Metabolic Prof 12/08/2020 [facility] [address] [place] [address] Glu 127 mg/dL High 70-110 1 BUN [...] High 6-38 5 Laboratory test finding 12/07/2020 [facility] [address] [place] [address] Lfglu 159 mg/dL High 70-110 Type&Screen 12/02/2020 [facility] [address] [place] [address] Blood Type B POSITIVE Normal Antibody Screen NEGATIVE Normal Laboratory test finding 12/02/2020 [facility] [address] [place] [address] Bretype B POSITIVE Normal Laboratory test finding 12/02/2020 [facility] [address] [place] [address] [id number] Rheonix Negative Normal Negative 6 Prothrombin Time/Inr 11/17/2020 [facility] entr [address] [place] [address] (315)- - Prothrombin Time 13.3 seconds Normal 12.5-14.3 Inr 0.99 Normal 7 Complete Blood Count 11/17/2020 [facility] entr [address] [place] [address] (315)- - White Blood Count 5.8 10 [...] % Normal 0-0 Laboratory test finding 11/17/2020 [facility] [address] [place] [address] (315)- - Erythrocyte Sedimentation Rate 17 mm/hr Normal 0-30 Comprehensive Metabolic Profil 11/17/[address] [address] (315)- - Glucose, Fasting 103 mg/dL High [...] reference range: 2.9-4.4 g/dL 3 The Dimension [place] Total Bi lirubin is not recommended for [...] initial administration of either drug. 6 The [employer] COVID-19 MDx Ass ay is an endpoint [...] Little GFR Left ESRD GFR <15 on BROACH SETTER Procedures Date Code Description Status 01/27/2021 46171 X-Ray Hip Unilateral With Pelvis 2-3 Views Completed 01/26/2021 64969 Therapeutic Procedure, Each 15 M inutes Completed 01/26/2021 28787 Therapeutic Procedure, Each 15 M inutes Completed 01/11/2021 37808 Therapeutic Procedure, Each 15 M inutes Completed 01/11/2021 76614 Therapeutic Procedure, Each 15 M inutes Completed 01/05/2021 85915 Therapeutic Procedure, Each 15 M inutes Completed 01/05/2021 59972 Therapeutic Procedure, Each 15 M inutes Completed 12/26/2020 11084 Physical Therapy Eval - Low Comp lexity Completed 12/07/2020 07787 Arthroplasty "Total Hip" W/ Or W /O Graft Completed 10/03/2020 22085 Office/Outpatient Established Hi gh MDM 40-54 Min Completed 10/03/2020 77775 X-Ray Pelvis Ap Only 1-2 Views C ompleted 08/15/2020 40705 Office/Outpatient Established Mo d MDM 30-39 Min Completed 08/15/2020 95423 X-Ray Hip Unilateral With Pelvis 2-3 Views Completed Medical Devices Description No Information Available Encounters Type Date Location Provider Dx Diagnosis Office Visit 01/27/2021 1:30p Caleb Nickerson MD Z47.1 Aftercare following joint replacement surgery Z96.641 Presence of right artificial hip joint Office Visit 12/21/2020 1:30p [place] Dewayne Nickerson MD Z47.1 Aftercare following joint replacement surgery Z96.641 Presence of right artificial hip joint Office Visit 12/06/2020 10:00a [place] PA-C Z01.818 Encounter for other preprocedural examination 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, right hip Office Visit 10/03/2020 3:30p [place] MD M16.11 Unilateral primary osteoarthritis, right hip M70.61 Trochanteric bursitis, right hip Office Visit 08/15/2020 2:15p [place] MD M16.11 Unilateral primary osteoarthritis, right hip M70.61 Trochanteric bursitis, right hip Assessments Date Code Description Provider 01/27/2021 Z47.1 Aftercare following joint replac ement surgery Dewayne Nickerson MD 01/27/2021 Z96.641 Presence of right artificial hip joint Dewayne Nickerson MD 01/26/2021 Z47.1 Aftercare following joint replac ement surgery Krystal Peterson, SCHEDULER MAINTENANCE 01/26/2021 Z96.641 Presence of right artificial hip joint Krystal Peterson, SCHEDULER MAINTENANCE 01/11/2021 Z47.1 Aftercare following joint replac ement surgery Krystal Peterson, SCHEDULER MAINTENANCE 01/11/2021 Z96.641 Presence of right artificial hip joint Krystal Peterson, SCHEDULER MAINTENANCE 01/05/2021 Z47.1 Aftercare following joint replac ement surgery Danamarie Ortolano, SCHEDULER MAINTENANCE 01/05/2021 Z96.641 Presence of right artificial hip joint Danamarie Ortolano, SCHEDULER MAINTENANCE 12/26/2020 Z47.1 Aftercare following joint replac ement surgery [facility]ira Arora, [facility] 12/26/2020 Z96.641 Presence of right artificial hip joint Samira Arora, [facility] 12/21/2020 Z47.1 Aftercare following joint replac ement [...] hip Dewayne Nickerson MD Plan of Treatment Future Appointment(s):* 03/02/2021 1:00 pm - Heidi Nickerson PA-C at [place] 01/27/2021 - Dewayne Nickerson MD* Z47.1 Aftercare following joint replacement surgery * Z96.641 Presence of right artificial hip joint* Follow up:* 3 months right hip recheck with SBF Functional Status Description No Information Available Mental Status Description No Information Available Referrals Refer to Reason for Referral Status Appt Date Dewayne Nickerson MD Physical Therapy Right Hip p er Katia L at [facility] no auth req pt gets 80 visits a year after 25 a pre d is recommended for medical necessity patient has 25 dollar co pay and is going to [facility] passed to PT dept sw. Created [address] [place] [address], [address] [address] [phone] Dewayne Nickerson MD SURGERY PER SAHARA AT [facility] A [facility] DEPT NO AUTH REQUIRED FOR TOTAL RT HIP([address]) AND PER MALLORY AT [facility] DEPT. NO AUTH REQUIRED AND COVERED AT 100% SAME DAY SURGERY IF NEEDS MORE TIME HOSPITAL WILL GET THAT TO SURGERY NT CALL REF #[id number] Created [address] [place] [address], [address] [address] [phone] Mckinley, Heidi Vicente PA-C FLUORO INJ NO AUTH REQUIRED PER ANNY Victor FOR FLUOROSCOPIC INJECTION ([id number], [id number]) TO BETTY Pham DG Created [address] [place] [address] [address] [place] [address] [phone] Mckinley, Dewayne Gill MD REF. NO AUTH REQUIRED FOR R EF TO DR KEVIN QUICK TO TRANS NT Created [facility], [address] [place] [address] [phone]
--- OUTSIDE RECORDS SUMMARY | 2021-03-02 15:22 | CCD | Continuity of Care Document ---
Author Author Alva NICKERSON MD Organization Unknown Address [address] [place] [address], [facility] e [address] [place] [address] Phone [phone] Care Team Providers Care Quality Control Industrial Engineer Name Role Phone Amadeo Estrada MD AUTM [phone] Problems Active Problems Provider Date Pure hypercholesterolemia [...] H/L Range Note Comprehensive Metabolic Prof 12/08/[address] [address] Glu 127 mg/dL High 70-110 1 BUN [...] High 6-38 5 Laboratory test finding 12/07/2020 [facility] [address] [place] [address] Lfglu 159 mg/dL High 70-110 Type&Screen 12/02/2020 [facility] [address] [place] [address] Blood Type B POSITIVE Normal Antibody Screen NEGATIVE Normal Laboratory test finding 12/02/2020 [facility] [address] [place] [address] Bretype B POSITIVE Normal Laboratory test finding 12/02/2020 [facility] [address] [place] [address] [id number] Rheonix Negative Normal Negative 6 Prothrombin Time/Inr 11/17/[address] [address] (315)- - Prothrombin Time 13.3 seconds Normal 12.5-14.3 Inr 0.99 Normal 7 Complete Blood Count 11/17/[address] [address] (315)- - White Blood Count 5.8 10 [...] % Normal 0-0 Laboratory test finding 11/17/2020 [facility] [address] [place] [address] (315)- - Erythrocyte Sedimentation Rate 17 mm/hr Normal 0-30 Comprehensive Metabolic Profil 11/17/2020 [facility] [address] [place] [address] (315)- - Glucose, Fasting 103 mg/dL High [...] reference range: 2.9-4.4 g/dL 3 The Dimension [place] Total Bi lirubin is not recommended for [...] initial administration of either drug. 6 The [employer] COVID-19 MDx Ass ay is an endpoint [...] Little GFR Left ESRD GFR <15 on LEGAL ADMINISTRATIVE ASSISTANT Procedures Date Code Description Status 01/27/2021 34036 X-Ray Hip Unilateral With Pelvis 2-3 Views Completed 01/26/2021 04181 Therapeutic Procedure, Each 15 M inutes Completed 01/26/2021 51581 Therapeutic Procedure, Each 15 M inutes Completed 01/11/2021 66162 Therapeutic Procedure, Each 15 M inutes Completed 01/11/2021 43501 Therapeutic Procedure, Each 15 M inutes Completed 01/05/2021 94260 Therapeutic Procedure, Each 15 M inutes Completed 01/05/2021 33728 Therapeutic Procedure, Each 15 M inutes Completed 12/26/2020 86802 Physical Therapy Eval - Low Comp lexity Completed 12/07/2020 98798 Arthroplasty "Total Hip" W/ Or W /O Graft Completed 10/03/2020 11479 Office/Outpatient Established Hi gh MDM 40-54 Min Completed 10/03/2020 17203 X-Ray Pelvis Ap Only 1-2 Views C ompleted 08/15/2020 72335 Office/Outpatient Established Mo d MDM 30-39 Min Completed 08/15/2020 80799 X-Ray Hip Unilateral With Pelvis 2-3 Views Completed Medical Devices Description No Information Available Encounters Type Date Location Provider Dx Diagnosis Office Visit 01/27/2021 1:30p Caleb Nickerson MD Z96.641 Presence of right artificial hip joint M79.661 Pain in right lower leg Office Visit 12/21/2020 1[place] Z47.1 Aftercare following joint replacement surgery Z96.641 Presence of right artificial hip joint Office Visit 12/06/2020 10:00a [place] PA-C Z01.818 Encounter for other preprocedural [...] following joint replac ement surgery Krystal Peterson, HYPOID GEAR TESTER 01/26/2021 Z96.641 Presence of right artificial hip joint Krystal Peterson, HYPOID GEAR TESTER 01/11/2021 Z47.1 Aftercare following joint replac ement surgery Krystal Peterson, HYPOID GEAR TESTER 01/11/2021 Z96.641 Presence of right artificial hip joint Krystal Peterson, HYPOID GEAR TESTER 01/05/2021 Z47.1 Aftercare following joint replac ement surgery Danamarie Ortolano, HYPOID GEAR TESTER 01/05/2021 Z96.641 Presence of right artificial hip joint Danamarie Ortolano, HYPOID GEAR TESTER 12/26/2020 Z47.1 Aftercare following joint replac ement surgery [facility]ira Arora, [facility] 12/26/2020 Z96.641 Presence of right artificial hip joint Samira Arora, [facility] 12/21/2020 Z47.1 Aftercare following joint replac [...] Right Hip p er Katia L at [facility] no auth req pt gets 80 visits a year after 25 a pre d is recommended for medical necessity patient has 25 dollar co pay and is going to [facility] passed to PT dept sw. Created [address] [place] [address], [address] [place] [phone] [phone] Dewayne Nickerson MD SURGERY PER SAHARA AT [facility] A [facility] DEPT NO AUTH REQUIRED FOR TOTAL RT HIP(56974) AND PER MALLORY AT [facility] DEPT. NO AUTH REQUIRED AND COVERED AT 100% SAME DAY SURGERY IF NEEDS MORE TIME HOSPITAL WILL GET THAT TO SURGERY NT CALL REF #[id number] Created [address] [place] [address], [address] [place] [address] [phone] Heidi Nickerson PA-C FLUORO INJ NO AUTH REQUIRED PER ANNY Victor FOR FLUOROSCOPIC INJECTION ([id number], [id number]) TO BETTY CedilloMaged DG Created [address] [facility] [address] [place] [address] [phone] Mckinley, Dewayne Gill MD REF. NO AUTH REQUIRED FOR R EF TO DR KEVIN QUICK TO TRANS NT Created [facility], [address] [place] [address] [phone]
--- OUTSIDE RECORDS SUMMARY | 2021-03-02 15:23 | CCD | Continuity of Care Document ---
Author Author Alva [facility] Organization Unknown Address [address] [place] [address], [facility] [address] [place] [address] Phone [phone] Care Team Providers Care Tie Binder Name Role Phone Amadeo Estrada MD AUTM [phone] Problems Active Problems Provider Date Pure hypercholesterolemia [...] SIG Qnty Indications Ordering Provide r Date Xarelto 10mg Tablets 1 tab by mouth daily for 35 days for post op hip surgery. 35tabs Dewayne tellez MD 11/03/2020 Oxycodone HCL 5mg Capsules 1 tablets by mouth every 4 hrs as needed 25caposei Sen MD 0 11/03/2020 Tizanidine HCL 2mg Capsules 1 tab by mouth every day at bedtime as needed 90caps Elisa forrest MD 03/01/2020 Gabapentin 600mg Tablets take [...] 5 days prior to surgery 22gm Dewayne Sen MD 11/03/2020 - 12/22/2020 Immunizations Description No Information Available Vital Signs Date Vital Result Comment 12/06/2020 12:47pm Body Temperature 97.5 F Height 65.5 inches 5'5.50" Weight 181.12 lb BMI (Body Mass Index) 29.7 kg/m2 10/03/2020 4:51pm Height 67 inches 5'7" Weight 180.00 lb BMI (Body Mass Index) 28.2 kg/m2 Results Test Acquired Date Facility Test Result H/L Range Note Comprehensive Metabolic Prof 12/08/2020 [facility] [address] [place] [address] Glu 127 mg/dL High 70-110 1 BUN [...] High 6-38 5 Laboratory test finding 12/07/2020 [facility] [address] [place] [address] Lfglu 159 mg/dL High 70-110 Type&Screen 12/02/2020 [facility] [address] [place] [address] Blood Type B POSITIVE Normal Antibody Screen NEGATIVE Normal Laboratory test finding 12/02/2020 [facility] [address] [place] [address] Bretype B POSITIVE Normal Laboratory test finding 12/02/2020 [facility] [address] [place] [address] [id number] Rheonix Negative Normal Negative 6 Prothrombin Time/Inr 11/17/[address] [address] (315)- - Prothrombin Time 13.3 seconds Normal 12.5-14.3 Inr 0.99 Normal 7 Complete Blood Count 11/17/[address] [address] (315)- - White Blood Count 5.8 10 [...] % Normal 0-0 Laboratory test finding 11/17/2020 [facility] [address] [place] [address] (315)- - Erythrocyte Sedimentation Rate 17 mm/hr Normal 0-30 Comprehensive Metabolic Profil 11/17/[address] [address] (315)- - Glucose, Fasting 103 mg/dL High [...] reference range: 2.9-4.4 g/dL 3 The Dimension [place] Total Bi lirubin is not recommended for [...] initial administration of either drug. 6 The [employer] COVID-19 MDx Ass ay is an endpoint [...] sole basis for patient management decisions. The Existence Before Essencex MDx Assay is only for use under [...] Little GFR Left ESRD GFR <15 on MANAGER CONTRACT Procedures Date Code Description Status 12/07/2020 05662 Arthroplasty "Total Hip" W/ Or W /O Graft Completed 10/03/2020 72507 Office/Outpatient Established Hi gh MDM 40-54 Min Completed 10/03/2020 35313 X-Ray Pelvis Ap Only 1-2 Views C ompleted 08/15/2020 27402 Office/Outpatient Established Mo d MDM 30-39 Min Completed 08/15/2020 33224 X-Ray Hip Unilateral With Pelvis 2-3 Views Completed 07/08/2020 34046 Office/Outpatient Established Mo d MDM 30-39 Min Completed 07/08/2020 48824 Inject/Drain Joint/Bursa Major C ompleted Medical Devices Description No Information Available Encounters Type Date Location Provider Dx Diagnosis Office Visit 12/21/2020 1:30p Caleb Sen MD Z47.1 Aftercare following joint replacement surgery Z96.641 Presence of right artificial hip joint Office Visit 12/06/2020 10:00a Caleb Sen PA-C Z01.818 Encounter for other preprocedural examination 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, right hip Office Visit 10/03/2020 3:30p Caleb Sen MD M16.11 Unilateral primary osteoarthritis, right hip M70.61 Trochanteric bursitis, right hip Office Visit 08/15/2020 2:15p Caleb Sen MD M16.11 Unilateral primary osteoarthritis, right hip M70.61 Trochanteric bursitis, right hip Office Visit 07/08/2020 3:45p [place] Dewayne Sen MD M16.11 Unilateral primary osteoarthritis, right hip M70.61 Trochanteric bursitis, right hip Assessments Date Code Description Provider 12/21/2020 Z47.1 Aftercare following joint replac ement surgery Dewayne Sen MD 12/21/2020 Z96.641 Presence of right artificial hip joint Dewayne Sen MD 12/07/2020 M16.11 Unilateral primary osteoarthriti s, right hip Dewayne Sen MD 12/06/2020 Z01.818 Encounter for other preprocedura l examination Heidi Sen PA-C 12/06/2020 M16.11 Unilateral primary osteoarthriti s, right hip Heidi Sen PA-C 10/03/2020 M16.11 Unilateral primary osteoarthriti s, right hip Dewayne Sen MD 10/03/2020 M70.61 Trochanteric bursitis, right hip Dewayne Sen MD 08/15/2020 M16.11 Unilateral primary osteoarthriti s, right hip Dewayne Sen MD 08/15/2020 M70.61 Trochanteric bursitis, right hip Dewayne Sen MD 07/08/2020 M16.11 Unilateral primary osteoarthriti s, right hip Dewayne Sen MD 07/08/2020 M70.61 Trochanteric bursitis, right hip Dewayne Sen MD Plan of Treatment Future Appointment(s):* 01/27/2021 1:30 pm - Dewayne Sen MD at [place] Functional Status Description No Information Available Mental Status Description No Information Available Referrals Refer to Reason for Referral Status Appt Date Dewayne Sen MD Physical Therapy Right Hip p er Katia L at [facility] no auth req pt gets 80 visits a year after 25 a pre d is recommended for medical necessity patient has 25 dollar co pay and is going to [facility] passed to PT dept sw. Created [address] [place] [address], [address] [place] [address] [phone] Dewayne Sen MD SURGERY PER SAHARA AT [facility] DEPT NO AUTH REQUIRED FOR TOTAL RT HIP(99120) AND PER MALLORY AT [facility] DEPT. NO AUTH REQUIRED AND COVERED AT 100% SAME DAY SURGERY IF NEEDS MORE TIME HOSPITAL WILL GET THAT TO SURGERY NT CALL REF #[id number] Created [address] [facility], [address] [place] [address] [phone] Heidi Sen PA-C FLUORO INJ NO AUTH REQUIRED PER ANNY Victor FOR FLUOROSCOPIC INJECTION ([id number], [id number]) TO BETTY MARTIN Created [address] [address] [phone] Dewayne Sen MD REF. NO AUTH REQUIRED FOR R EF TO DR KEVIN QUICK TO TRANS NT Created [facility], [address] [place] [address] [phone] Heidi Sen PA-C MRI APPROVED PER VY Sen FOR MRI OF RIGHT HIP ([id number]) TO BETTY MARTIN Created [address] [address] [phone]
--- OUTSIDE RECORDS SUMMARY | 2021-03-02 15:23 | CCD | Continuity of Care Document ---
Author Author Alva PETERSON [facility] Organization Unknown Address [address] [facility] [address] [place] [address] Phone [phone] Care Team Providers Care Geophysical Support Specialist Name Role Phone Amadeo Estrada MD AUTM [phone] Problems Active Problems Provider Date Pure hypercholesterolemia [...] Bedtime, Surg Date 12/07/2020 25tabs Z47.1 Dewayne Sen MD 01/09/2021 Z96.641 Xarelto 10mg Tablets 1 tab by mouth daily for 35 days for post op hip surgery. 35tabs Dewayne tellez MD 11/03/2020 Tizanidine HCL 2mg Capsules 1 tab by mouth every day at bedtime as needed 90caps D. Godfrey forrest MD 03/01/2020 Gabapentin 600mg Tablets take [...] 22gm Dewayne Sen MD 11/03/2020 - 12/22/2020 Oxycodone HCL 5mg Capsules 1 tablets by mouth every 6 hours as needed for post op pain 20caps S migdalia Sen MD 11/03/2020 - 01/09/2021 Immunizations Description No Information Available Vital Signs Date Vital Result Comment 12/06/2020 12:47pm Body Temperature 97.5 F Height 65.5 inches 5'5.50" Weight 181.12 lb BMI (Body Mass Index) 29.7 kg/m2 10/03/2020 4:51pm Height 67 inches 5'7" Weight 180.00 lb BMI (Body Mass Index) 28.2 kg/m2 Results Test Acquired Date Facility Test Result H/L Range Note Comprehensive Metabolic Prof 12/08/2020 [facility] [address] [place] [address] Glu 127 mg/dL High 70-110 1 BUN [...] High 6-38 5 Laboratory test finding 12/07/2020 [facility] [address] [place] [address] Lfglu 159 mg/dL High 70-110 Type&Screen 12/02/2020 [facility] [place] [facility] [address] [place] [address] Blood Type B POSITIVE Normal Antibody Screen NEGATIVE Normal Laboratory test finding 12/02/2020 [facility] [address] [place] [address] Bretype B POSITIVE Normal Laboratory test finding 12/02/2020 [facility] [address] [place] [address] [id number] Rheonix Negative Normal Negative 6 Prothrombin Time/Inr 11/17/2020 [facility] [address] [place] [address] (315)- - Prothrombin Time 13.3 seconds Normal 12.5-14.3 Inr 0.99 Normal 7 Complete Blood Count 11/17/2020 [facility] [address] [place] [address] (315)- - White Blood Count 5.8 10 [...] % Normal 0-0 Laboratory test finding 11/17/2020 [facility] [address] [place] [address] (315)- - Erythrocyte Sedimentation Rate 17 mm/hr Normal 0-30 Comprehensive Metabolic Profil 11/17/[address] [address] (315)- - Glucose, Fasting 103 mg/dL High [...] reference range: 2.9-4.4 g/dL 3 The Dimension [place] Total Bi lirubin is not recommended for [...] initial administration of either drug. 6 The [employer] COVID-19 MDx Ass ay is an endpoint [...] Little GFR Left ESRD GFR <15 on BELT TURNER Procedures Date Code Description Status 01/11/2021 87144 Therapeutic Procedure, Each 15 M inutes Completed 01/11/2021 97963 Therapeutic Procedure, Each 15 M inutes Completed 01/05/2021 63196 Therapeutic Procedure, Each 15 M inutes Completed 01/05/2021 53120 Therapeutic Procedure, Each 15 M inutes Completed 12/26/2020 35390 Physical Therapy Eval - Low Comp lexity Completed 12/07/2020 43164 Arthroplasty "Total Hip" W/ Or W /O Graft Completed 10/03/2020 00330 Office/Outpatient Established Hi gh MDM 40-54 Min Completed 10/03/2020 13791 X-Ray Pelvis Ap Only 1-2 Views C ompleted 08/15/2020 27942 Office/Outpatient Established Mo d MDM 30-39 Min Completed 08/15/2020 99621 X-Ray Hip Unilateral With Pelvis 2-3 Views [...] right hip Assessments Date Code Description Provider 01/11/2021 Z47.1 Aftercare following joint replac ement surgery Krystal Peterson, ROLE PLAYER 01/11/2021 Z96.641 Presence of right artificial hip joint Krystal Peterson, ROLE PLAYER 01/05/2021 Z47.1 Aftercare following joint replac ement surgery Danamarie Ortolano, ROLE PLAYER 01/05/2021 Z96.641 Presence of right artificial hip joint Danamarie Ortolano, ROLE PLAYER 12/26/2020 Z47.1 Aftercare following joint replac ement surgery [facility], [facility] 12/26/2020 Z96.641 Presence of right artificial hip joint Samira Arora, [facility] 12/21/2020 Z47.1 Aftercare following joint replac ement [...] 1:30 pm - Dewayne Sen MD at [place] Functional Status Description No Information Available Mental Status Description No Information Available Referrals Refer to Dr Reason for Referral Status Appt Date Dewayne Sen MD Physical Therapy Right Hip p er Katia L at [facility] no auth req pt gets 80 visits a year after 25 a pre d is recommended for medical necessity patient has 25 dollar co pay and is going to [facility] passed to PT dept sw. Created [facility] [place] [phone] Dewayne Sen MD SURGERY PER SAHARA AT [facility] DEPT NO AUTH REQUIRED FOR TOTAL RT HIP(04445) AND PER MALLORY AT [facility] DEPT. NO AUTH REQUIRED AND COVERED AT 100% SAME DAY SURGERY IF NEEDS MORE TIME HOSPITAL WILL GET THAT TO SURGERY NT CALL REF #[id number] Created [facility] [place] [address] [phone] Heidi Sen PA-C FLUORO INJ NO AUTH REQUIRED PER ANNY Victor FOR FLUOROSCOPIC INJECTION ([id number], [phone]) TO BETTY MARTIN Created [address] [place], [place] [id number] [phone] Dewayne Sen MD REF. NO AUTH REQUIRED FOR R EF TO DR KEVIN QUICK TO TRANS NT Created [address] [place] [phone] [phone] Heidi Sen PA-C MRI APPROVED PER VY Sen FOR MRI OF RIGHT HIP ([id number]) TO BETTY MARTIN Created [facility] [place] [phone]
--- OUTSIDE RECORDS SUMMARY | 2021-03-02 15:23 | CCD | Continuity of Care Document ---
Author Author Alva SIDDIQUI HI Organization Unknown Address [address] [place] [address] [place] [address] Phone [phone] Care Team Providers Care Bi Solutions Architect Name Role Phone Amadeo Estrada MD [facility] [[email or web address]] [phone] Problems Description No Information Available Social History Type Date Description Comments Sex Unknown ETOH Use Denies alcohol use Tobacco Use Start: Unknown Patient has never smoked Smoking Status Reviewed: 01/05/21 Patient has never smoked Allergies, Adverse Reactions, Alerts Description No Known Drug Allergies Medications Active Medications SIG Qnty Indications Ordering Provide r Date Amoxicillin/Clavulanate Potassium 875-125mg Tablets take one tablet by mouth twice a day x 10 days 20tabs J 20.9 Amadeo Estrada JR., M.D. 01/05/2021 Afrin Sinus 0.05% Solution pr n Unknown Omeprazole 20mg Capsules DR mcclain very day Unknown Benazepril HCL Tablets Unknown Aspir-Low 81mg Tablets Unknown Gabapentin 600mg Tablets Unknown Vitamin B Complex Unknown 000 Biotin Unknown Metformin HCL 500mg Tablets Unknown Oxycodone HCL 5mg Tablets prn due to hip surgery Unknown Xarelto due to hip surgery Unknown Immunizations Description No Information Available Vital Signs Date Vital Result Comment 01/05/2021 1:20pm BP Systolic 133 mmHg BP Diastolic 80 mmHg Heart Rate 86 /min Respiratory Rate 18 /min O2 % BldC Oximetry 99 % Body Temperature 98.0 F Weight 180.00 lb Height 67 inches 5'7" BMI (Body Mass Index) 28.2 kg/m2 Pain Level 7 03/28/2019 8:26am BP Systolic 152 mmHg BP Diastolic 84 mmHg Heart Rate 71 /min Respiratory Rate 16 /min O2 % BldC Oximetry 97 % Body Temperature 97.9 F Weight 175.00 lb Height 67 inches 5'7" BMI (Body Mass Index) 27.4 kg/m2 Pain Level 6 Results Description No Information Available Procedures Date Code Description Status 01/05/2021 26572 Office/Outpatient Established Lo w MDM 20-29 Min Completed Medical Devices Description No Information Available Encounters Type Date Location Provider Dx Diagnosis Office Visit 01/05/2021 11:45a Main Office RADHA Cabello J20.9 Acute bronchitis, unspecified Z20.828 Contact w and exposure to ot h viral communicable diseases Assessments Date Code Description Provider 01/05/2021 J20.9 Acute bronchitis, unspecified Re RADHA Garnica 01/05/2021 Z20.828 Contact with and (payan spected) exposure to other viral communicable diseases RADHA Cabello Plan of Treatment 01/05/2021 - RADHA Cabello* J20.9 Acute bronchitis, unspecified* New Medication:* Amoxicillin/Clavulanate Potassium 875-125 mg - take one tablet by mouth twice a day x 10 days * Z20.828 Contact with and (suspected) exposure to other viral communicable diseases Functional Status Description No Information Available Mental Status Description No Information Available Referrals Description No Information Available
--- OUTSIDE RECORDS SUMMARY | 2021-03-02 15:23 | CCD | Continuity of Care Document ---
Author Author Alva PETERSON [facility] Organization Unknown Address [address] [facility] [address] [place] [address] Phone [phone] Care Team Providers Care Power Line Installer Name Role Phone Amadeo Estrada MD AUTM [phone] Problems Active Problems Provider Date Pure hypercholesterolemia [...] H/L Range Note Comprehensive Metabolic Prof 12/08/2020 [facility] [address] [place] [address] Glu 127 mg/dL High 70-110 1 BUN [...] High 6-38 5 Laboratory test finding 12/07/2020 [facility] [address] [place] [address] Lfglu 159 mg/dL High 70-110 Type&Screen 12/02/2020 [facility] [address] [place] [address] Blood Type B POSITIVE Normal Antibody Screen NEGATIVE Normal Laboratory test finding 12/02/2020 [facility] [address] [place] [address] Bretype B POSITIVE Normal Laboratory test finding 12/02/2020 [facility] [address] [place] [address] [id number] Rheonix Negative Normal Negative 6 Prothrombin Time/Inr 11/17/2020 [facility] entr [address] [place] [address] (315)- - Prothrombin Time 13.3 seconds Normal 12.5-14.3 Inr 0.99 Normal 7 Complete Blood Count 11/17/2020 [facility] entr [address] [place] [address] (315)- - White Blood Count 5.8 10 [...] % Normal 0-0 Laboratory test finding 11/17/2020 [facility] [address] [place] [address] (315)- - Erythrocyte Sedimentation Rate 17 mm/hr Normal 0-30 Comprehensive Metabolic Profil 11/17/[address] [address] (315)- - Glucose, Fasting 103 mg/dL High [...] reference range: 2.9-4.4 g/dL 3 The Dimension [place] Total Bi lirubin is not recommended for [...] initial administration of either drug. 6 The [employer] COVID-19 MDx Ass ay is an endpoint [...] Little GFR Left ESRD GFR <15 on [employer]INS[employer]ING W[employer]ER [employer] OILER Procedures Date Code Description Status 01/11/2021 64630 Therapeutic Procedure, Each 15 M inutes Completed 01/11/2021 76640 Therapeutic Procedure, Each 15 M inutes Completed 01/05/2021 88707 Therapeutic Procedure, Each 15 M inutes Completed 01/05/2021 90038 Therapeutic Procedure, Each 15 M inutes Completed 12/26/2020 03195 Physical Therapy Eval - Low Comp lexity Completed 12/07/2020 76631 Arthroplasty "Total Hip" W/ Or W /O Graft Completed 10/03/2020 73153 Office/Outpatient Established Hi gh MDM 40-54 Min Completed 10/03/2020 90136 X-Ray Pelvis Ap Only 1-2 Views C ompleted 08/15/2020 37163 Office/Outpatient Established Mo d MDM 30-39 Min Completed 08/15/2020 07497 X-Ray Hip Unilateral With Pelvis 2-3 Views [...] following joint replac ement surgery Krystal Peterson, PRIVATE WATCHMAN 01/11/2021 Z96.641 Presence of right artificial hip joint Krystal Peterson, PRIVATE WATCHMAN 01/05/2021 Z47.1 Aftercare following joint replac ement surgery Danamarie Ortolano, PRIVATE WATCHMAN 01/05/2021 Z96.641 Presence of right artificial hip joint Danamarie Ortolano, PRIVATE WATCHMAN 12/26/2020 Z47.1 Aftercare following joint replac ement surgery Samira Arora, [email or web address] 12/26/2020 Z96.641 Presence of right artificial hip joint Samira Arora, [email or web address]T 12/21/2020 Z47.1 Aftercare following joint replac ement [...] 1:30 pm - Dewayne Sen MD at [place] Functional Status Description No Information Available Mental Status Description No Information Available Referrals Refer to Dr Reason for Referral Status Appt Date Dewayne Sen MD Physical Therapy Right Hip p er Katia L at [facility] no auth req pt gets 80 visits a year after 25 a pre d is recommended for medical necessity patient has 25 dollar co pay and is going to [facility] passed to PT dept sw. Created [facility], [address] [address] [phone] Dewayne Sen MD SURGERY PER SAHARA AT [facility] A [facility] DEPT NO AUTH REQUIRED FOR TOTAL RT HIP([id number]) AND PER MALLORY AT [facility] DEPT. NO AUTH REQUIRED AND COVERED AT 100% SAME DAY SURGERY IF NEEDS MORE TIME HOSPITAL WILL GET THAT TO SURGERY NT CALL REF #[id number] Created [address] [facility], [address] [address] [phone] Heidi Sen PA-C FLUORO INJ NO AUTH REQUIRED PER ANNY Victor FOR FLUOROSCOPIC INJECTION ([id number], [id number]) TO BETTY CedilloMaged DG Created [address] [place] [address] [phone] Dewayne Sen MD REF. NO AUTH REQUIRED FOR R EF TO DR KEVIN QUICK TO TRANS NT Created [facility], [address] [address] [phone]
--- OUTSIDE RECORDS SUMMARY | 2021-03-02 15:23 | CCD | Continuity of Care Document ---
Author Author Alva ARORA [facility]SPT Organization Unknown Address [address] [place] [address], [facility] [address] [place] [address] Phone [phone] Care Team Providers Care Grocery Deliverer Name Role Phone Amadeo Estrada MD AUTM [phone] Problems Active Problems Provider Date Pure hypercholesterolemia [...] H/L Range Note Comprehensive Metabolic Prof 12/08/2020 [facility] [address] [place] [address] Glu 127 mg/dL High 70-110 1 BUN [...] High 6-38 5 Laboratory test finding 12/07/2020 [facility] [address] [place] [address] Lfglu 159 mg/dL High 70-110 Type&Screen 12/02/2020 [facility] [address] [place] [address] Blood Type B POSITIVE Normal Antibody Screen NEGATIVE Normal Laboratory test finding 12/02/2020 [facility] [address] [place] [address] Bretype B POSITIVE Normal Laboratory test finding 12/02/2020 [facility] [address] [place] [address] [id number] Rheonix Negative Normal Negative 6 Prothrombin Time/Inr 11/17/[address] [address] (315)- - Prothrombin Time 13.3 seconds Normal 12.5-14.3 Inr 0.99 Normal 7 Complete Blood Count 11/17/[address] [address] (315)- - White Blood Count 5.8 10 [...] % Normal 0-0 Laboratory test finding 11/17/2020 [facility] [address] [place] [address] (315)- - Erythrocyte Sedimentation Rate 17 mm/hr Normal 0-30 Comprehensive Metabolic Profil 11/17/2020 [facility] [address] [place] [address] (315)- - Glucose, Fasting 103 mg/dL High [...] reference range: 2.9-4.4 g/dL 3 The Dimension [place] Total Bi lirubin is not recommended for [...] initial administration of either drug. 6 The [employer] COVID-19 MDx Ass ay is an endpoint [...] Little GFR Left ESRD GFR <15 on ENGINEER STATION MAINLINE Procedures Date Code Description Status 01/11/2021 97151 Therapeutic Procedure, Each 15 M inutes Completed 01/11/2021 06145 Therapeutic Procedure, Each 15 M inutes Completed 01/05/2021 54927 Therapeutic Procedure, Each 15 M inutes Completed 01/05/2021 58733 Therapeutic Procedure, Each 15 M inutes Completed 12/26/2020 02006 Physical Therapy Eval - Low Comp lexity Completed 12/07/2020 14503 Arthroplasty "Total Hip" W/ Or W /O Graft Completed 10/03/2020 52492 Office/Outpatient Established Hi gh MDM 40-54 Min Completed 10/03/2020 26939 X-Ray Pelvis Ap Only 1-2 Views C ompleted 08/15/2020 51783 Office/Outpatient Established Mo d MDM 30-39 Min Completed 08/15/2020 47214 X-Ray Hip Unilateral With Pelvis 2-3 Views [...] following joint replac ement surgery Krystal Peterson, U.S. REPRESENTATIVE 01/11/2021 Z96.641 Presence of right artificial hip joint Krystal Peterson, U.S. REPRESENTATIVE 01/05/2021 Z47.1 Aftercare following joint replac ement surgery Danamarie Ortolano, U.S. REPRESENTATIVE 01/05/2021 Z96.641 Presence of right artificial hip joint Danamarie Ortolano, U.S. REPRESENTATIVE 12/26/2020 Z47.1 Aftercare following joint replac ement surgery [facility], [facility] 12/26/2020 Z96.641 Presence of right artificial hip joint [facility]ira Arora, [facility] 12/21/2020 Z47.1 Aftercare following joint replac [...] 1:30 pm - Dewayne Sen MD at [place] Functional Status Description No Information Available Mental Status Description No Information Available Referrals Refer to Reason for Referral Status Appt Date Dewayne Sen MD Physical Therapy Right Hip p er Katia L at [facility] no auth req pt gets 80 visits a year after 25 a pre d is recommended for medical necessity patient has 25 dollar co pay and is going to [facility] passed to PT dept sw. Created [facility], [place] [address] [phone] Dewayne Sen MD SURGERY PER SAHARA AT [facility] A [facility] DEPT NO AUTH REQUIRED FOR TOTAL RT HIP([id number]) AND PER MALLORY AT [facility] DEPT. NO AUTH REQUIRED AND COVERED AT 100% SAME DAY SURGERY IF NEEDS MORE TIME HOSPITAL WILL GET THAT TO SURGERY NT CALL REF #[id number] Created [facility] [place] [address] [phone] Heidi Sen PA-C FLUORO INJ NO AUTH REQUIRED PER ANNY Victor FOR FLUOROSCOPIC INJECTION ([id number], 20331) TO BETTY MARTIN Created [address] [place], [place] [id number] [phone] Dewayne Sen MD REF. NO AUTH REQUIRED FOR R EF TO DR KEVIN QUICK TO TRANS NT Created [address] [place] [address] [phone] Heidi Sen PA-C MRI APPROVED PER VY Sen FOR MRI OF RIGHT HIP ([id number]) TO BETTY MARTIN Created [address] [place], [place] [phone]
--- OUTSIDE RECORDS SUMMARY | 2021-03-02 15:23 | CCD | Continuity of Care Document ---
Author Author Alva NICKERSON MD Organization Unknown Address [address] [place] [address], [facility] e [address] [place] [address] Phone [phone] Care Team Providers Care Clinical Administrator Name Role Phone Amadeo Estrada MD AUTM [phone] Problems Active Problems Provider Date Pure hypercholesterolemia [...] mouth every 4 hrs as needed 25caposei Nickerson MD 0 11/03/2020 Tizanidine HCL 2mg Capsules [...] 22gm Dewayne Nickerson MD 11/03/2020 - 12/22/2020 Immunizations Description No Information Available Vital Signs Date Vital Result Comment 12/06/2020 12:47pm Body Temperature 97.5 F Height 65.5 inches 5'5.50" Weight 181.12 lb BMI (Body Mass Index) 29.7 kg/m2 10/03/2020 4:51pm Height 67 inches 5'7" Weight 180.00 lb BMI (Body Mass Index) 28.2 kg/m2 Results Test Acquired Date Facility Test Result H/L Range Note Comprehensive Metabolic Prof 12/08/[address] [address] Glu 127 mg/dL High 70-110 1 BUN [...] High 6-38 5 Laboratory test finding 12/07/2020 [facility] [address] [place] [address] Lfglu 159 mg/dL High 70-110 Type&Screen 12/02/2020 [facility] [address] [place] [address] Blood Type B POSITIVE Normal Antibody Screen NEGATIVE Normal Laboratory test finding 12/02/2020 [facility] [address] [place] [address] Bretype B POSITIVE Normal Laboratory test finding 12/02/2020 [facility] [address] [place] [address] [id number] Rheonix Negative Normal Negative 6 Prothrombin Time/Inr 11/17/[address] [address] (315)- - Prothrombin Time 13.3 seconds Normal 12.5-14.3 Inr 0.99 Normal 7 Complete Blood Count 11/17/[address] [address] (315)- - White Blood Count 5.8 10 [...] % Normal 0-0 Laboratory test finding 11/17/2020 [facility] [address] [place] [address] (315)- - Erythrocyte Sedimentation Rate 17 mm/hr Normal 0-30 Comprehensive Metabolic Profil 11/17/[address] [address] (315)- - Glucose, Fasting 103 mg/dL High [...] reference range: 2.9-4.4 g/dL 3 The Dimension [place] Total Bi lirubin is not recommended for [...] initial administration of either drug. 6 The [employer] COVID-19 MDx Ass ay is an endpoint [...] sole basis for patient management decisions. The [employer] MDx Assay is only for use under [...] Little GFR Left ESRD GFR <15 on TABLEAU DEVELOPER Procedures Date Code Description Status 12/07/2020 35345 Arthroplasty "Total Hip" W/ Or W /O Graft Completed 10/03/2020 34940 Office/Outpatient Established Hi gh MDM 40-54 Min Completed 10/03/2020 38713 X-Ray Pelvis Ap Only 1-2 Views C ompleted 08/15/2020 17692 Office/Outpatient Established Mo d MDM 30-39 Min Completed 08/15/2020 71038 X-Ray Hip Unilateral With Pelvis 2-3 Views Completed 07/08/2020 26464 Office/Outpatient Established Mo d MDM 30-39 Min Completed 07/08/2020 28492 Inject/Drain Joint/Bursa Major C ompleted Medical Devices Description No Information Available Encounters Type Date Location Provider Dx Diagnosis Office Visit 12/21/2020 1:30p Caleb Nickerson MD Z47.1 Aftercare following joint replacement surgery Z96.641 Presence of right artificial hip joint Office Visit 12/06/2020 10:00a Caleb Nickerson PA-C Z01.818 Encounter for other preprocedural examination 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, right hip Office Visit 10/03/2020 3:30p Caleb Nickerson MD M16.11 Unilateral primary osteoarthritis, right hip M70.61 Trochanteric bursitis, right hip Office Visit 08/15/2020 2:15p Caleb Nickerson MD M16.11 Unilateral primary osteoarthritis, right hip M70.61 Trochanteric bursitis, right hip Office Visit 07/08/2020 3:45p [place] Dewayne Nickerson MD M16.11 Unilateral primary osteoarthritis, right [...] Trochanteric bursitis, right hip Dewayne Nickerson MD 07/08/2020 M16.11 Unilateral primary osteoarthriti s, right hip Dewayne Nickerson MD 07/08/2020 M70.61 Trochanteric bursitis, right hip Dewayne Nickerson MD Plan of Treatment Future Appointment(s):* 01/27/2021 1:30 pm - Dewayne Nickerson MD at [place] Functional Status Description No Information Available Mental Status Description No Information Available Referrals Refer to Reason for Referral Status Appt Date Dewayne Nickerson MD Physical Therapy Right Hip p er Katia L at [facility] no auth req pt gets 80 visits a year after 25 a pre d is recommended for medical necessity patient has 25 dollar co pay and is going to [facility] passed to PT dept sw. Created [address] [place] [address], [address] [place] [address] [phone] Dewayne Nickerson MD SURGERY PER SAHARA AT [facility] A [facility] DEPT NO AUTH REQUIRED FOR TOTAL RT HIP([id number]) AND PER MALLORY AT [facility] DEPT. NO AUTH REQUIRED AND COVERED AT 100% SAME DAY SURGERY IF NEEDS MORE TIME HOSPITAL WILL GET THAT TO SURGERY NT CALL REF #[id number] Created [address] [facility], [address] [place] [address] [phone] Heidi Nickerson PA-C FLUORO INJ NO AUTH REQUIRED PER ANNY Victor FOR FLUOROSCOPIC INJECTION ([id number], 70741) TO BETTY MARTIN Created [facility] [address] [address] [phone] Dewayne Nickerson MD REF. NO AUTH REQUIRED FOR R EF TO DR KEVIN QUICK TO TRANS NT Created [facility], [address] [place] [address] [phone] Heidi Nickerson PA-C MRI APPROVED PER VY Sen FOR MRI OF RIGHT HIP ([id number]) TO BETTY MARTIN Created [facility] [address] [place] [address] [phone]
--- OUTSIDE RECORDS SUMMARY | 2021-03-02 15:23 | CCD | Continuity of Care Document ---
Author Author Alva [facility] Organization Unknown Address [address] [address] Phone [phone] Care Team Providers Care Table Assembler Name Role Phone Amadeo Estrada MD AUTM [phone] Problems Active Problems Provider Date Pure hypercholesterolemia [...] pain 20caps S migdalia Sen MD 11/03/2020 Tizanidine HCL 2mg Capsules 1 tab by mouth every day at bedtime as needed 90caposei forrest MD 03/01/2020 Gabapentin 600mg Tablets take [...] H/L Range Note Comprehensive Metabolic Prof 12/08/2020 [facility] [address] [place] [address] Glu 127 mg/dL High 70-110 1 BUN [...] High 6-38 5 Laboratory test finding 12/07/2020 [facility] [address] [place] [address] Lfglu 159 mg/dL High 70-110 Type&Screen 12/02/2020 [facility] [address] [place] [address] Blood Type B POSITIVE Normal Antibody Screen NEGATIVE Normal Laboratory test finding 12/02/2020 [facility] [address] [place] [address] Bretype B POSITIVE Normal Laboratory test finding 12/02/2020 [facility] [address] [place] [address] [id number] Rheonix Negative Normal Negative 6 Prothrombin Time/Inr 11/17/2020 [facility] entr [address] [place] [address] (315)- - Prothrombin Time 13.3 seconds Normal 12.5-14.3 Inr 0.99 Normal 7 Complete Blood Count 11/17/2020 [facility] entr [address] [place] [address] (315)- - White Blood Count 5.8 10 [...] % Normal 0-0 Laboratory test finding 11/17/2020 [facility] Centr [address] [place] [address] (315)- - Erythrocyte Sedimentation Rate 17 mm/hr Normal 0-30 Comprehensive Metabolic Profil 11/17/[address] [address] (315)- - Glucose, Fasting 103 mg/dL High [...] reference range: 2.9-4.4 g/dL 3 The Dimension [place] Total Bi lirubin is not recommended for [...] initial administration of either drug. 6 The [employer] COVID-19 MDx Ass ay is an endpoint [...] sole basis for patient management decisions. 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 Procedures Date Code Description Status 12/26/2020 17287 Physical Therapy Eval - Low Comp lexity Completed 12/07/2020 83419 Arthroplasty "Total Hip" W/ Or W /O Graft Completed 10/03/2020 59219 Office/Outpatient Established Hi gh MDM 40-54 Min Completed 10/03/2020 53663 X-Ray Pelvis Ap Only 1-2 Views C ompleted 08/15/2020 27581 Office/Outpatient Established Mo d MDM 30-39 Min Completed 08/15/2020 43493 X-Ray Hip Unilateral With Pelvis 2-3 Views Completed 07/08/2020 26511 Office/Outpatient Established Mo d MDM 30-39 Min Completed 07/08/2020 39537 Inject/Drain Joint/Bursa Major C ompleted Medical Devices [...] bursitis, right hip Office Visit 07/08/2020 3:45p [place] Dewayne Sen MD M16.11 Unilateral primary osteoarthritis, right hip M70.61 Trochanteric bursitis, right hip Assessments Date Code Description Provider 12/26/2020 Z47.1 Aftercare following joint replac ement surgery Samira Arora, [facility] 12/26/2020 Z96.641 Presence of right artificial hip joint [facility] 12/21/2020 Z47.1 Aftercare following joint replac ement [...] 1:30 pm - Dewayne Sen MD at [place] Functional Status Description No Information Available Mental Status Description No Information Available Referrals Refer to Reason for Referral Status Appt Date Dewayne Sen MD Physical Therapy Right Hip p er Katia L at [facility] no auth req pt gets 80 visits a year after 25 a pre d is recommended for medical necessity patient has 25 dollar co pay and is going to [facility] passed to PT dept sw. Created [address] [facility], [address] [place] [address] [phone] Dewayne Sen MD SURGERY PER SAHARA AT [facility] A [facility] DEPT NO AUTH REQUIRED FOR TOTAL RT HIP(19598) AND PER MALLORY AT [facility] DEPT. NO AUTH REQUIRED AND COVERED AT 100% SAME DAY SURGERY IF NEEDS MORE TIME HOSPITAL WILL GET THAT TO SURGERY NT CALL REF #[id number] Created [address] [facility], [address] [place] [phone] [phone] Heidi Sen PA-C FLUORO INJ NO AUTH REQUIRED PER ANNY Victor FOR FLUOROSCOPIC INJECTION ([id number], 59419) TO BETTY MARTIN Created [facility] [address] [address] [phone] Dewayne Sen MD REF. NO AUTH REQUIRED FOR R EF TO DR KEVIN QUICK TO TRANS NT Created [facility], [address] [place] [address] [phone] Heidi Sen PA-C MRI APPROVED PER VY Sen FOR MRI OF RIGHT HIP (76020) TO BETTY MARTIN Created [facility] [place] [address] [phone]
--- OUTSIDE RECORDS SUMMARY | 2021-03-02 15:23 | CCD | Continuity of Care Document ---
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 Name Role Phone Amadeo Estrada MD AUTM [phone] Problems Active Problems Provider Date Pure hypercholesterolemia [...] H/L Range Note Comprehensive Metabolic Prof 12/08/[address] [address] Glu 127 mg/dL High 70-110 1 BUN [...] High 6-38 5 Laboratory test finding 12/07/2020 [facility] [address] [place] [address] Lfglu 159 mg/dL High 70-110 Type&Screen 12/02/2020 [facility] [address] [place] [address] Blood Type B POSITIVE Normal Antibody Screen NEGATIVE Normal Laboratory test finding 12/02/2020 [facility] [address] [place] [address] Bretype B POSITIVE Normal Laboratory test finding 12/02/2020 [facility] [address] [place] [address] [id number] Rheonix Negative Normal Negative 6 Prothrombin Time/Inr 11/17/[address] [address] (315)- - Prothrombin Time 13.3 seconds Normal 12.5-14.3 Inr 0.99 Normal 7 Complete Blood Count 11/17/[address] [address] (315)- - White Blood Count 5.8 10 [...] % Normal 0-0 Laboratory test finding 11/17/2020 [facility] [address] [place] [address] (315)- - Erythrocyte Sedimentation Rate 17 mm/hr Normal 0-30 Comprehensive Metabolic Profil 11/17/2020 [facility] [address] [place] [address] (315)- - Glucose, Fasting 103 mg/dL High [...] reference range: 2.9-4.4 g/dL 3 The Dimension [place] Total Bi lirubin is not recommended for [...] initial administration of either drug. 6 The [employer] COVID-19 MDx Ass ay is an endpoint [...] Little GFR Left ESRD GFR <15 on VOCATIONAL ED INSTRUCTOR Procedures Date Code Description Status 01/11/2021 89319 Therapeutic Procedure, Each 15 M inutes Completed 01/11/2021 26247 Therapeutic Procedure, Each 15 M inutes Completed 01/05/2021 67559 Therapeutic Procedure, Each 15 M inutes Completed 01/05/2021 43463 Therapeutic Procedure, Each 15 M inutes Completed 12/26/2020 94482 Physical Therapy Eval - Low Comp lexity Completed 12/07/2020 24852 Arthroplasty "Total Hip" W/ Or W /O Graft Completed 10/03/2020 65444 Office/Outpatient Established Hi gh MDM 40-54 Min Completed 10/03/2020 83531 X-Ray Pelvis Ap Only 1-2 Views C ompleted 08/15/2020 17094 Office/Outpatient Established Mo d MDM 30-39 Min Completed 08/15/2020 52799 X-Ray Hip Unilateral With Pelvis 2-3 Views [...] following joint replac ement surgery Krystal Peterson, ACUTE SPECIALIST 01/11/2021 Z96.641 Presence of right artificial hip joint Krystal Peterson, ACUTE SPECIALIST 01/05/2021 Z47.1 Aftercare following joint replac ement surgery Danamarie Ortolano, ACUTE SPECIALIST 01/05/2021 Z96.641 Presence of right artificial hip joint Danamarie Ortolano, ACUTE SPECIALIST 12/26/2020 Z47.1 Aftercare following joint replac ement surgery [facility], [facility] 12/26/2020 Z96.641 Presence of right artificial hip joint [facility] Arora, [facility] 12/21/2020 Z47.1 Aftercare following joint replac [...] 1:30 pm - Dewayne Sen MD at [place] Functional Status Description No Information Available Mental Status Description No Information Available Referrals Refer to Reason for Referral Status Appt Date Dewayne Sen MD Physical Therapy Right Hip p er Katia L at [facility] no auth req pt gets 80 visits a year after 25 a pre d is recommended for medical necessity patient has 25 dollar co pay and is going to [facility] passed to PT dept sw. Created [facility] [place] [address] [phone] Dewayne Sen MD SURGERY PER SAHARA AT [facility] A [facility] DEPT NO AUTH REQUIRED FOR TOTAL RT HIP(04437) AND PER MALLORY AT [facility] DEPT. NO AUTH REQUIRED AND COVERED AT 100% SAME DAY SURGERY IF NEEDS MORE TIME HOSPITAL WILL GET THAT TO SURGERY NT CALL REF #[id number] Created [facility] [place] [address] [phone] Heidi Sen PA-C FLUORO INJ NO AUTH REQUIRED PER ANNY Victor FOR FLUOROSCOPIC INJECTION ([id number], [phone]) TO BETTY MARTIN Created [address] [place] [address] [phone] Dewayne Sen MD REF. NO AUTH REQUIRED FOR R EF TO DR KEVIN QUICK TO TRANS NT Created [address] [place], [place] [address] [phone] Heidi Sen PA-C MRI APPROVED PER VY Sen FOR MRI OF RIGHT HIP ([id number]) TO BETTY MARTIN Created [address] [place], [place] [id number] [phone]
--- OUTSIDE RECORDS SUMMARY | 2021-03-02 15:23 | CCD | Continuity of Care Document ---
Author Author Alva NICKERSON MD Organization Unknown Address [address] [place] [address], [facility] [address] [place] [address] Phone [phone] Care Team Providers Care Shoe Treer Name Role Phone Amadeo Estrada MD AUTM [phone] Problems Active Problems Provider Date Pure hypercholesterolemia [...] Denies alcohol use Tobacco Use Start: Unknown End: Unknown Patient is a former smoker Allergies, Adverse Reactions, Alerts Active Allergies Criticality Reaction | Severity Comments Date Iron Unable to assess criticality 06/19/2016 Medications Active Medications SIG Qnty Indications Ordering Provide r Date Mupirocin 2% Ointment apply a pea sized amount to the nasal passages 3 times a day for 5 days prior to surgery 22gm Dewayne Nickerson MD 11/03/2020 Xarelto 10mg Tablets 1 tab by mouth daily for 35 days for post op hip surgery. 35tabs Dewayne tellez MD 11/03/2020 Oxycodone HCL 5mg Capsules 1 tablets by mouth every 4 hrs as needed 25caps Dewayne Nickersno MD 0 11/03/2020 Tizanidine HCL 2mg Capsules 1 tab by mouth every day at bedtime as needed 90long forrest MD 03/01/2020 Acetaminophen-Codeine #3 300-30mg Tablets take 1 tablet by mouth qhs 20tabs Z96.642 Dewayne Nickerson MD Bactroban 2% Ointment apply a pea sized amount to nasal passages three times a day x 5d before surgery QS Dewayne Nickerson MD 10/12/2019 Hibiclens 4% Liquid use in shower once daily for 5 days before surgery 1units Dewayne Nickerson MD 10/12/2019 Gabapentin 600mg Tablets take 1 tablet by mouth 4 times daily . do not exceed 4 per 24 hours 120tabs D. Godfrey Goncalves MD 11/28/2018 Biotin 5000mcg Capsules qd Amadeo Estrada MD 09/20/2010 Vitamin D 1000Unit Tablets 1 po qd Amadeo Estrada MD 09/20/2010 Ecotrin Low Strength 81mg Tablets Amadeo Islas MD 11/01/2009 Vitamin B12 1000mcg Tablets ER 1 by mouth every day Unknown Benazepril HCL 10mg Tablets 1 by mouth every day Unknown Omeprazole 20mg Capsules DR 1 by mouth every day Unknown Immunizations Description No Information Available Vital Signs Date Vital Result Comment 12/06/2020 12:47pm Body Temperature 97.5 F Height 65.5 inches 5'5.50" Weight 181.12 lb BMI (Body Mass Index) 29.7 kg/m2 10/03/2020 4:51pm Height 67 inches 5'7" Weight 180.00 lb BMI (Body Mass Index) 28.2 kg/m2 Results Test Acquired Date Facility Test Result H/L Range Note Comprehensive Metabolic Prof 12/08/2020 [facility] [address] [place] [address] Glu 127 mg/dL High 70-110 1 BUN [...] High 6-38 5 Laboratory test finding 12/07/2020 [facility] [address] [place] [address] Lfglu 159 mg/dL High 70-110 Type&Screen 12/02/2020 [facility] [address] [place] [address] Blood Type B POSITIVE Normal Antibody Screen NEGATIVE Normal Laboratory test finding 12/02/2020 [facility] [address] [place] [address] Bretype B POSITIVE Normal Laboratory test finding 12/02/2020 [facility] [address] [place] [address] [id number] Rheonix Negative Normal Negative 6 Prothrombin Time/Inr 11/17/2020 [facility] entr [address] [place] [address] (315)- - Prothrombin Time 13.3 seconds Normal 12.5-14.3 Inr 0.99 Normal 7 Complete Blood Count 11/17/2020 [facility] entr [address] [place] [address] (315)- - White Blood Count 5.8 10 [...] % Normal 0-0 Laboratory test finding 11/17/2020 [facility] [address] [place] [address] (315)- - Erythrocyte Sedimentation Rate 17 mm/hr Normal 0-30 Comprehensive Metabolic Profil 11/17/2020 [facility] [address] [place] [address] (315)- - Glucose, Fasting 103 mg/dL High [...] reference range: 2.9-4.4 g/dL 3 The Dimension [place] Total Bi lirubin is not recommended for [...] initial administration of either drug. 6 The [employer] COVID-19 MDx Ass ay is an endpoint [...] sole basis for patient management decisions. The RheBATSx MDx Assay is only for use under [...] Little GFR Left ESRD GFR <15 on SUTURE WINDER HAND Procedures Date Code Description Status 12/07/2020 88263 Arthroplasty "Total Hip" W/ Or W /O Graft Completed 10/03/2020 09233 Office/Outpatient Established Hi gh MDM 40-54 Min Completed 10/03/2020 11823 X-Ray Pelvis Ap Only 1-2 Views C ompleted 08/15/2020 53370 Office/Outpatient Established Mo d MDM 30-39 Min Completed 08/15/2020 47586 X-Ray Hip Unilateral With Pelvis 2-3 Views Completed 07/08/2020 87941 Office/Outpatient Established Mo d MDM 30-39 Min Completed 07/08/2020 16624 Inject/Drain Joint/Bursa Major C ompleted 06/27/2020 24328 Office/Outpatient Established Lo w MDM 20-29 Min [...] bursitis, right hip Office Visit 07/08/2020 3:45p Caleb Nickerson MD M16.11 Unilateral primary osteoarthritis, right hip M70.61 Trochanteric bursitis, right hip Office Visit 06/27/2020 11:15a Caleb Nickerson PA-C M16.11 Unilateral primary osteoarthritis, right hip M70.61 [...] Trochanteric bursitis, right hip Dewayne Nickerson MD 06/27/2020 M16.11 Unilateral primary osteoarthriti s, right hip Heidi Nickerson PA-C 06/27/2020 M70.61 Trochanteric bursitis, right hip Heidi Nickerson PA-C Plan of Treatment Future Appointment(s):* 12/26/2020 3:30 pm - Samira Arora, MSPT at Physical Therapy 12/21/2020 - Dewayne Nickerson MD* Z47.1 Aftercare following joint replacement surgery* Follow up:* 4-6 weeks with SBF rt hip re-check w/xrays * Z96.641 Presence of right artificial hip joint Functional Status Description No Information Available Mental Status Description No Information Available Referrals Refer to Dr Reason for Referral Status Appt Date Dewayne Nickerson MD Physical Therapy Right Hip p er Katia L at [facility] no auth req pt gets 80 visits a year after 25 a pre d is recommended for medical necessity patient has 25 dollar co pay and is going to [facility] passed to PT dept sw. Created [address] [place] [address], [place] [address] [phone] Dewayne Nickerson MD SURGERY PER SAHARA AT [facility] A [facility] DEPT NO AUTH REQUIRED FOR TOTAL RT HIP(81248) AND PER MALLORY AT [facility] DEPT. NO AUTH REQUIRED AND COVERED AT 100% SAME DAY SURGERY IF NEEDS MORE TIME HOSPITAL WILL GET THAT TO SURGERY NT CALL REF #[id number] Created [address] [place] [address], [address] [address] [phone] Heidi Nickerson PA-C FLUORO INJ NO AUTH REQUIRED PER ANNY Victor FOR FLUOROSCOPIC INJECTION ([id number], [phone]) TO BETTY NguyenMaged DG Created [address] [place] [address] [phone] Dewayne Nickerson MD REF. NO AUTH REQUIRED FOR R EF TO DR KEVIN QUICK TO TRANS NT Created [facility], [address] [address] [phone] Heidi Nickerson PA-C MRI APPROVED PER VY Sen FOR MRI OF RIGHT HIP ([id number]) TO BETTY MARTIN Created [address] [facility] [address] [place] [address] [phone]
--- OUTSIDE RECORDS SUMMARY | 2021-03-02 15:23 | CCD | Continuity of Care Document ---
Author Author Alva [facility] Organization Unknown Address [address] [facility] [address] [place] [address] Phone [phone] Care Team Providers Care Substation Engineer Name Role Phone Amadeo Estrada MD AUTM [phone] Problems Active Problems Provider Date Pure hypercholesterolemia [...] H/L Range Note Comprehensive Metabolic Prof 12/08/2020 [facility] [address] [place] [address] Glu 127 mg/dL High 70-110 1 BUN [...] High 6-38 5 Laboratory test finding 12/07/2020 [facility] [address] [place] [address] Lfglu 159 mg/dL High 70-110 Type&Screen 12/02/2020 [facility] [address] [place] [address] Blood Type B POSITIVE Normal Antibody Screen NEGATIVE Normal Laboratory test finding 12/02/2020 [facility] [address] [place] [address] Bretype B POSITIVE Normal Laboratory test finding 12/02/2020 [facility] [address] [place] [address] [id number] Rheonix Negative Normal Negative 6 Prothrombin Time/Inr 11/17/2020 [facility] entr [address] [place] [address] (315)- - Prothrombin Time 13.3 seconds Normal 12.5-14.3 Inr 0.99 Normal 7 Complete Blood Count 11/17/2020 [facility] entr [address] [place] [address] (315)- - White Blood Count 5.8 10 [...] % Normal 0-0 Laboratory test finding 11/17/2020 [facility] [address] [place] [address] (315)- - Erythrocyte Sedimentation Rate 17 mm/hr Normal 0-30 Comprehensive Metabolic Profil 11/17/[address] [address] (315)- - Glucose, Fasting 103 mg/dL High [...] reference range: 2.9-4.4 g/dL 3 The Dimension [place] Total Bi lirubin is not recommended for [...] initial administration of either drug. 6 The [employer] COVID-19 MDx Ass ay is an endpoint [...] Little GFR Left ESRD GFR <15 on TRIAL [place] Procedures Date Code Description Status 01/26/2021 93674 Therapeutic Procedure, Each 15 M inutes Completed 01/26/2021 69339 Therapeutic Procedure, Each 15 M inutes Completed 01/11/2021 61334 Therapeutic Procedure, Each 15 M inutes Completed 01/11/2021 95079 Therapeutic Procedure, Each 15 M inutes Completed 01/05/2021 71604 Therapeutic Procedure, Each 15 M inutes Completed 01/05/2021 59146 Therapeutic Procedure, Each 15 M inutes Completed 12/26/2020 21608 Physical Therapy Eval - Low Comp lexity Completed 12/07/2020 49998 Arthroplasty "Total Hip" W/ Or W /O Graft Completed 10/03/2020 36069 Office/Outpatient Established Hi gh MDM 40-54 Min Completed 10/03/2020 05123 X-Ray Pelvis Ap Only 1-2 Views C ompleted 08/15/2020 87573 Office/Outpatient Established Mo d MDM 30-39 Min Completed 08/15/2020 67038 X-Ray Hip Unilateral With Pelvis 2-3 Views Completed Medical Devices Description No Information Available Encounters Type Date Location Provider Dx Diagnosis Office Visit 12/21/2020 1:30p [facility] Sen MD Z47.1 Aftercare following joint replacement surgery Z96.641 Presence of right artificial hip joint Office Visit 12/06/2020 10:00a [place] Heidi Sen PA-C Z01.818 Encounter for other preprocedural examination 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, right hip Office Visit 10/03/2020 3:30p Caleb Sen MD M16.11 Unilateral primary osteoarthritis, right hip M70.61 Trochanteric bursitis, right hip Office Visit 08/15/2020 2:15p Vic[facility]ier Sen MD M16.11 Unilateral primary osteoarthritis, right hip M70.61 Trochanteric bursitis, right hip Assessments Date Code Description Provider 01/26/2021 Z47.1 Aftercare following joint replac ement surgery Krystal Peterson, SIX HORSE HITCH DRIVER 01/26/2021 Z96.641 Presence of right artificial hip joint Krystal Peterson, SIX HORSE HITCH DRIVER 01/11/2021 Z47.1 Aftercare following joint replac ement surgery Krystal Peterson, SIX HORSE HITCH DRIVER 01/11/2021 Z96.641 Presence of right artificial hip joint Krystal Peterson, SIX HORSE HITCH DRIVER 01/05/2021 Z47.1 Aftercare following joint replac ement surgery Danamarie Ortolano, SIX HORSE HITCH DRIVER 01/05/2021 Z96.641 Presence of right artificial hip joint Danamarie Ortolano, SIX HORSE HITCH DRIVER 12/26/2020 Z47.1 Aftercare following joint replac ement surgery Samira Arora, [facility] 12/26/2020 Z96.641 Presence of right artificial hip joint Samira Arora, [facility] 12/21/2020 Z47.1 Aftercare following joint replac [...] 1:30 pm - Dewayne Sen MD at [place] Functional Status Description No Information Available Mental Status Description No Information Available Referrals Refer to Reason for Referral Status Appt Date Dewayne Sen MD Physical Therapy Right Hip p er Katia L at [facility] no auth req pt gets 80 visits a year after 25 a pre d is recommended for medical necessity patient has 25 dollar co pay and is going to [facility] passed to PT dept sw. Created [address] [place] [address], [address] [id number] [phone] Dewayne Sen MD SURGERY PER SAHARA AT [facility] A [facility] DEPT NO AUTH REQUIRED FOR TOTAL RT HIP(63119) AND PER MALLORY AT [facility] DEPT. NO AUTH REQUIRED AND COVERED AT 100% SAME DAY SURGERY IF NEEDS MORE TIME HOSPITAL WILL GET THAT TO SURGERY NT CALL REF #[id number] Created [facility], [address] [place] [address] [phone] Heidi Sen, PAJuliC FLUORO INJ NO AUTH REQUIRED PER ANNY Victor FOR FLUOROSCOPIC INJECTION ([id number], [id number]) TO BETTY CedilloMaged DG Created [facility] [address] [place] [address] [phone] Dewayne Sen MD REF. NO AUTH REQUIRED FOR R EF TO DR KEVIN QUICK TO TRANS NT Created [facility], [address] [place] [address] [phone]
--- OUTSIDE RECORDS SUMMARY | 2021-03-02 15:23 | CCD | Continuity of Care Document ---
Author Author Alva SIDDIQUI PA Organization Unknown Address [address] [place] [address] [place] [address] Phone [phone] Care Team Providers Care Engineering And Operations Director Name Role Phone Amadeo Estrada MD [facility] [phone] Problems Description No Information Available Social History Type Date Description Comments Sex Unknown ETOH Use Denies alcohol use Tobacco Use Start: Unknown Patient has never smoked Smoking Status Reviewed: 01/05/21 Patient has never smoked Allergies, Adverse Reactions, Alerts Description No Known Drug Allergies Medications Active Medications SIG Qnty Indications Ordering Provide r Date Afrin Sinus 0.05% Solution pr n Unknown Omeprazole 20mg Capsules DR mcclain very day Unknown Benazepril HCL Tablets Unknown Aspir-Low 81mg Tablets DR Unknown Gabapentin 600mg Tablets Unknown Vitamin B [...] 6 Results Description No Information Available Procedures Description No Information Available Medical Devices Description No Information Available Encounters Description No Information Available Assessments Description No Information Available Plan of Treatment No Information Available Functional Status Description No Information Available Mental Status Description No Information Available Referrals Description No Information Available
--- OUTSIDE RECORDS SUMMARY | 2021-03-02 15:23 | CCD ---
Author Author Dat Sharma MD [facility] Organization Dat Sharma MD [facility] Address [address] [address] Phone Care Team Providers Care Chief Power Dispatcher Name Role Phone Natalie ABDALLA MD, Amadeo Painting PP [phone] Svetlana Crews MD Unavailable [phone] Rajesh Glasgow DO Unavailable [phone] Reason for Referral No Reason for Referral Recorded Problems Includes: Active, inactive, and resolved Problems All Visits Onset Date - Time Resolved Date - Time Provider Co ndition Status Diabetes Mellitus Type 2 Without Complication 03/28/2017 - 12:00 AM Rajesh Glasgow DO Active Corneal Degeneration Arcus Senilis 03/28/2017 - 12:00AM Rajesh Glasgow DO Active Cataract Senile Nuclear 03/28/2017 - 12:00AM Rajesh Levine [facility] Active Dry Eye Syndrome 03/28/2017 - 12:00AM Rajesh aguayo DO Active Vitreous Disorders Degeneration 03/28/2017 - 12:00AM Matilda Glasgow DO Active Plan of Treatment Future Appointments Date Time Location Provider 1 Year Follow-Up 08/23/2021 9:40AM Dat Sharma MD [facility] Rajesh Glasgow DO Assessments Includes: Assessments for all patient encounters Findings Encounter Date Dry eye syndrome 1 Year Follow-Up with Rajesh Glasgow DO 08/18/2020 Long-term use of oral hypoglycemics 1 Year Follow-Up with Merari Glasgow DO 08/18/2020 Nuclear senile cataract 1 Year Follow-Up with Rajesh reyes DO 08/18/2020 Type 2 diabetes mellitus without complication 1 Year F ollow-Up with Rajesh Glasgow DO 08/18/2020 Vitreous degeneration 1 Year Follow-Up with Rajesh Webb olivier DO 08/18/2020 Dry eye syndrome 1 Year Follow-Up with Rajesh Glasgow DO 06/06/2018 Nuclear senile cataract 1 Year Follow-Up with Rajesh Alaniz eiolivier DO 06/06/2018 Type 2 diabetes mellitus without complication 1 Year F ollow-Up with Rajesh Glasgow DO 06/06/2018 Vitreous degeneration 1 Year Follow-Up with Rajesh Webb olivier DO 06/06/2018 Arcus senilis was observed NEW PATIENT WITH REFERRAL with Merari corrales Pee DO 03/15/2017 Dry eye syndrome NEW PATIENT WITH REFERRAL with Rajesh villegas DO 03/15/2017 Nuclear senile cataract NEW PATIENT WITH REFERRAL with Finn Glasgow DO 03/15/2017 Type 2 diabetes mellitus without complication [facility] WITH REFERRAL with Rajesh Glasgow DO 03/15/2017 Vitreous degeneration NEW PATIENT WITH REFERRAL with Rajesh Glasgow DO 03/15/2017 Instructions Instructions not supported for this document typeNo Instructions Recorded Medical Equipment - Implanted Devices Includes: Current and historical DevicesNo Medical Equipment Recorded Medications Includes: Current and historical Medications Current Medications (continue as prescribed) metFORMIN HCl 500 MG Oral Tablet 08/18/2020 Provide r: Diagnosis: Omeprazole 20MG Oral Capsule Delayed Release 03/15/2017 Provider: Diagnosis: Benazepril HCl 10MG Oral Tablet 03/15/2017 Provider : Diagnosis: Gabapentin 100MG Oral Capsule 03/15/2017 Provider: Diagnosis: Medications Administered Includes: Administered Medications in patient's chartNo Administered Medications Recorded Vital Signs Includes: Vital Signs from 12/17/2019 through 12/16/2020No Vital Signs Recorded For Specified Dates Results Includes: Results from 12/17/2019 through 12/16/2020No Results Recorded For Specified Dates History of Present Illness History of Present Illness not supported for this document typeNo History of Present Illness Recorded Social History Description Last Updated Not using alcohol 08/18/2020 Not using drugs 08/18/2020 Tobacco non-user 08/18/2020 No tobacco use 08/18/2020 Smoking status : Former smoker 08/18/2020 Procedures and Surgical History Includes: Procedures from 12/17/2019 through 12/16/2020 Procedures Code Diagnosis Performing Provider Service Location Service Date Intermediate Eye Exam Established Patient [address] Type 2 diabetes mellitus without complications, lobsterman (current) use of oral hypoglycemic drugs, Age-related nuclear cataract, bilateral, Dry eye syndrome of bilateral lacrimal glands Rajesh Cote MD [facility] 08/18/2020 Surgical History Last Updated Surgical / procedural history Gastric B ypass 2009, Left Total Hip Replacement 09/2019, Right Hip Injections 08/18/2020 Medical History Includes: Medical History in patient's chart Description Last Updated History of the retina was abnormal 06/06/2018 History of diabetes mellitus Dx: 1999 A 1C: with Dr. Estrada unknown, FBS: Doesnt check 08/18/2020 Recent change in medical history 08/18/2020 History of arthritis 08/18/2020 History of hypertension 08/18/2020 Reported medical history Acid Reflux, Nerve Pain 07/29 Family History Includes: Family History in patient's chart Description Last Updated Fraternal history of diabetes mellitus 08/18/2020 Fraternal history of family history of cancer 08/19/19 21 Fraternal history of hypertension 08/18/2020 Maternal history of cataract 08/18/2020 Maternal history of diabetes mellitus 08/18/2020 Maternal history of heart disease 08/18/2020 Maternal history of hypertension 08/18/2020 Paternal history of family history of cancer Sororal history of diabetes mellitus 08/18/2020 Sororal history of family history of cancer 08/18/2020 Sororal history of hypertension 08/18/2020 Review of Systems Review of Systems not supported for this document typeNo Review of Systems Recorded Mental Status Mental Status not supported for this document type Description Oriented to time, place, and person Functional Status Functional Status not supported for this document typeNo Functional Status Recorded Physical Exam Physical Exam not supported for this document typeNo Physical Exam Recorded Immunizations Includes: Immunizations in patient's chartNo Immunizations Recorded Allergies Includes: Active, inactive, and resolved AllergiesNo Known Allergies Encounters Includes: Encounters from 12/17/2019 through 12/16/2020 Encounter Provider Location Date Check-In Time Check-Out Time D iagnosis 1 Year Follow-Up Rajesh Cote MD [facility] 07/29 9:38AM 10:33AM Cataract Senile Nuclear, Dry Eye Syndrome, Vitreous Disorders Degeneration, Diabetes Mellitus Type 2 Without Complication, Taking Medication For Diabetes Long-term Use of Oral Hypoglycemics Insurance Includes: Active Insurance Policies Plan Name Member ID Group # Subscriber Relationship Effective Da kashmir 1 - [employer] Care [employer] /PRIOR AUTHS NEEDED [id number] Solitario Gonzales Self Advance Directives Includes: Current Advance DirectivesNo Advance Directives Recorded Health Concerns Includes: Active Health ConcernsNo Active Health Concerns Recorded Goals Includes: Active GoalsNo Active Goals Recorded Interventions Includes: Interventions for active GoalsNo Interventions Recorded Evaluations & Outcomes Includes: Evaluations & Outcomes for active GoalsNo Outcomes Recorded
--- OUTSIDE RECORDS SUMMARY | 2021-03-02 15:23 | CCD | Continuity of Care Document ---
Author Author [facility] Organization Unknown Address [address] [place] [address], [facility] [address] [place] [address] Phone [phone] Care Team Providers Care Teller Supervisor Name Role Phone Amadeo Estrada MD AUTM [phone] Problems Active Problems Provider Date Pure hypercholesterolemia [...] Prof 12/08/2020 [facility] [address] [place] [address] Glu 127 mg/dL High 70-110 1 BUN [...] High 6-38 5 Laboratory test finding 12/07/2020 [facility] [address] [place] [address] Lfglu 159 mg/dL High 70-110 Type&Screen 12/02/2020 [facility] [address] [place] [address] Blood Type B POSITIVE Normal Antibody Screen NEGATIVE Normal Laboratory test finding 12/02/2020 [facility] [address] [place] [address] Bretype B POSITIVE Normal Laboratory test finding 12/02/2020 [facility] [address] [place] [address] [id number] Rheonix Negative Normal Negative 6 Prothrombin Time/Inr 11/17/[address] [address] (315)- - Prothrombin Time 13.3 seconds Normal 12.5-14.3 Inr 0.99 Normal 7 Complete Blood Count 11/17/[address] [address] (315)- - White Blood Count 5.8 10 [...] % Normal 0-0 Laboratory test finding 11/17/2020 [facility] [address] [place] [address] (315)- - Erythrocyte Sedimentation Rate 17 mm/hr Normal 0-30 Comprehensive Metabolic Profil 11/17/[address] [address] (315)- - Glucose, Fasting 103 mg/dL High [...] reference range: 2.9-4.4 g/dL 3 The Dimension [place] Total Bi lirubin is not recommended for [...] initial administration of either drug. 6 The [employer] COVID-19 MDx Ass ay is an [...] sole basis for patient management decisions. The Indian[employer]sx MDx Assay is only for use under [...] Little GFR Left ESRD GFR <15 on [employer] Procedures Date Code Description Status 12/07/2020 38255 Arthroplasty "Total Hip" W/ Or W /O Graft Completed 10/03/2020 06768 Office/Outpatient Established Hi gh MDM 40-54 Min Completed 10/03/2020 39503 X-Ray Pelvis Ap Only 1-2 Views C ompleted 08/15/2020 24976 Office/Outpatient Established Mo d MDM 30-39 Min Completed 08/15/2020 38539 X-Ray Hip Unilateral With Pelvis 2-3 Views Completed 07/08/2020 45089 Office/Outpatient Established Mo d MDM 30-39 Min Completed 07/08/2020 40258 Inject/Drain Joint/Bursa Major C ompleted Medical Devices [...] bursitis, right hip Office Visit 07/08/2020 3:45p [place] Dewayne Sen MD M16.11 Unilateral primary osteoarthritis, [...] 1:30 pm - Dewayne Sen MD at [place] Functional Status Description No Information Available Mental Status Description No Information Available Referrals Refer to Reason for Referral Status Appt Date Dewayne Sen MD Physical Therapy Right Hip p er Katia L at [facility] no auth req pt gets 80 visits a year after 25 a pre d is recommended for medical necessity patient has 25 dollar co pay and is going to [facility] passed to PT dept sw. Created [address] [place] [address], [address] [place] [address] [phone] Dewayne Sen MD SURGERY PER SAHARA AT [facility] DEPT NO AUTH REQUIRED FOR TOTAL RT HIP([id number]) AND PER MALLORY AT [facility] DEPT. NO AUTH REQUIRED AND COVERED AT 100% SAME DAY SURGERY IF NEEDS MORE TIME HOSPITAL WILL GET THAT TO SURGERY NT CALL REF #[id number] Created [address] [facility], [address] [place] [address] [phone] Heidi Sen PA-C FLUORO INJ NO AUTH REQUIRED PER ANNY Victor FOR FLUOROSCOPIC INJECTION ([id number], [id number]) TO BETTY MARTIN Created [address] [address] [phone] Dewayne Sen MD REF. NO AUTH REQUIRED FOR R EF TO DR KEVIN QUICK TO TRANS NT Created [facility], [address] [place] [address] [phone] Heidi Sen PA-C MRI APPROVED PER VY Sen FOR MRI OF RIGHT HIP ([id number]) TO BETTY MARTIN Created [address] [address] [phone]
--- OUTSIDE RECORDS SUMMARY | 2021-03-02 15:23 | CCD | Continuity of Care Document ---
Author Author Alva [facility] Organization Unknown Address [address] [facility] [address] [place] [address] Phone [phone] Care Team Providers Care Motor Express Clerk Name Role Phone Amadeo Estrada MD AUTM [phone] Problems Active Problems Provider Date Pure hypercholesterolemia [...] H/L Range Note Comprehensive Metabolic Prof 12/08/2020 [facility] [address] [place] [address] Glu 127 mg/dL High 70-110 1 BUN [...] High 6-38 5 Laboratory test finding 12/07/2020 [facility] [address] [place] [address] Lfglu 159 mg/dL High 70-110 Type&Screen 12/02/2020 [facility] [address] [place] [address] Blood Type B POSITIVE Normal Antibody Screen NEGATIVE Normal Laboratory test finding 12/02/2020 [facility] [address] [place] [address] Bretype B POSITIVE Normal Laboratory test finding 12/02/2020 [facility] [address] [place] [address] [id number] Rheonix Negative Normal Negative 6 Prothrombin Time/Inr 11/17/2020 [facility] entr [address] [place] [address] (315)- - Prothrombin Time 13.3 seconds Normal 12.5-14.3 Inr 0.99 Normal 7 Complete Blood Count 11/17/2020 [facility] entr [address] [place] [address] (315)- - White Blood Count 5.8 10 [...] % Normal 0-0 Laboratory test finding 11/17/2020 [facility] [address] [place] [address] (315)- - Erythrocyte Sedimentation Rate 17 mm/hr Normal 0-30 Comprehensive Metabolic Profil 11/17/[address] [address] (315)- - Glucose, Fasting 103 mg/dL High [...] reference range: 2.9-4.4 g/dL 3 The Dimension [place] Total Bi lirubin is not recommended for [...] initial administration of either drug. 6 The [employer] COVID-19 MDx Ass ay is an endpoint [...] Little GFR Left ESRD GFR <15 on WATER TESTER Procedures Date Code Description Status 01/05/2021 97665 Therapeutic Procedure, Each 15 M inutes Completed 12/26/2020 65147 Physical Therapy Eval - Low Comp lexity Completed 12/07/2020 93856 Arthroplasty "Total Hip" W/ Or W /O Graft Completed 10/03/2020 49448 Office/Outpatient Established Hi gh MDM 40-54 Min Completed 10/03/2020 03980 X-Ray Pelvis Ap Only 1-2 Views C ompleted 08/15/2020 83209 Office/Outpatient Established Mo d MDM 30-39 Min Completed 08/15/2020 93781 X-Ray Hip Unilateral With Pelvis 2-3 Views [...] bursitis, right hip Office Visit 08/15/2020 2:15p [place] Dewayne Sen MD M16.11 Unilateral primary osteoarthritis, right hip M70.61 Trochanteric bursitis, right hip Assessments Date Code Description Provider 01/05/2021 Z47.1 Aftercare following joint replac ement surgery Danamarie Ortolano, [employer] 01/05/2021 Z96.641 Presence of right artificial hip joint Donnyvanesarisarahi Chutolanjohnny, [employer] 12/26/2020 Z47.1 Aftercare following joint replac ement surgery Samira GreyMaged Arora, [facility] 12/26/2020 Z96.641 Presence of right artificial hip joint Samira Arora, [facility] 12/21/2020 Z47.1 Aftercare following joint replac [...] 1:30 pm - Dewayne Sen MD at [place] Functional Status Description No Information Available Mental Status Description No Information Available Referrals Refer to Reason for Referral Status Appt Date Dewayne Sen MD Physical Therapy Right Hip p er Katia L at [facility] no auth req pt gets 80 visits a year after 25 a pre d is recommended for medical necessity patient has 25 dollar co pay and is going to [facility] passed to PT dept sw. Created [address] [facility], [address] [place] [address] [phone] Dewayne Sen MD SURGERY PER SAHARA AT [facility] DEPT NO AUTH REQUIRED FOR TOTAL RT HIP([id number]) AND PER MALLORY AT [facility] DEPT. NO AUTH REQUIRED AND COVERED AT 100% SAME DAY SURGERY IF NEEDS MORE TIME HOSPITAL WILL GET THAT TO SURGERY NT CALL REF #[id number] Created [address] [facility], [address] [place] [address] [phone] Heidi Sen PA-C FLUORO INJ NO AUTH REQUIRED PER ANNY Victor FOR FLUOROSCOPIC INJECTION ([id number], [phone]) TO BETTY MARTIN Created [facility] [address] [address] [phone] Dewayne Sen MD REF. NO AUTH REQUIRED FOR R EF TO DR KEVIN QUICK TO TRANS NT Created [facility], [address] [place] [address] [phone] Heidi Sen PA-C MRI APPROVED PER VY Sen FOR MRI OF RIGHT HIP ([id number]) TO BETTY MARTIN Created [facility] [place] [address] [phone]
--- OUTSIDE RECORDS SUMMARY | 2021-03-02 15:24 | CCD | Continuity of Care Document ---
Author Author Floridachet Campbell [facility] Organization Eryn Adrian [facility] Address [address] [place] [address] Phone Care Team Providers Care Still Operator Brandy Name Role Phone MD MARCIN NORMAN PCP Health Concerns Health Concerns may be documented in an alternate section. Allergies, Adverse Reactions, Alerts Allergen Type Severity Reaction Last Updated Verified Status iron Allergy Unknown RASH, DIZZINESS December 02, 2020 Yes Active hydrocodone Allergy Unkn own ALTERED MENTAL STATUS December 02, 2020 Yes Active pravastatin Allergy Unkn own December 02, 2020 Yes Active ezetimibe Allergy Unknown December 02, 2020 Yes Active sitagliptin Allergy Unkn own December 02, 2020 Yes Active Social History Observation Status Observation Response Real e of Response Drinks alcohol daily N A ugust 2020 3:40am Recreational drug use N December 02, 2020 3:40am Assigned Sex Female Problems Active Problems Medical Problem Onset Date Status Hip replacement planned Active Diabetes Active HTN (hypertension) Act abigail Medications Medication Status Dose Units Route Directions Qty Days Start Date End Date Instructions Aspirin (SNCAPTY09 MG) 81 MG TABLET. Active 81 MG PO for HEART HEALTH Benazepril HCl (BENAZEPRIL HCL20 MG) 20 MG TABLET Active 20 MG PO D AILY for BLOOD PRESSURE Biotin (PIPKZS6835 MC1) 5,000 MCG TAB.RAPDIS Active 5000 MCG PO DAILY for SUPPLEMENT CYANOCOBALAMIN (VITAMIN B-12) (VITAMIN B 711910 MCG) 1,000 MCG TABLET.ER Active 1000 MCG PO DAILY for SUPPLEMENT FERROUS SULFATE (FERROUS KULEZZ083 MG) 325 MG TABLET.D R Active 325 MG PO As directed for ANEMIA GABAPENTIN* (KGLGITEZY507 MG) 300 MG CAPSULE Active 600 MG PO DAILY for neuropathy METFORMIN HCL (RABFUKKDY516 M2) 500 MG TAB.ER.24 Active 500 MG PO TWICE DAILY for BLOOD SUGAR Multivitamin (MULTIVITAMIN1 EACH) 1 EACH TABLET Active 1 PO IBETH LY for SUPPLEMENT Omeprazole (GNP GFAROLABZJ80 MG) 20 MG TABLET.DR Active 20 MG PO D AILY for GERD null (vit d) Active 1000 IU PO DAILY for SUPPLEMENT HYDROCORTISONE (PROCTOSOL HC2.5 %) 28.35 GM CRM.PE.BOB Discontinued As directed for HEMORRHOIDS December 02, 2020 4:54am ZOLPIDEM TARTRATE (KZIODL28 MG/TAB) 10 MG TABLET Discontinued 5 MG PO AT BEDTIME for ANXIETY December 02, 2020 4:54am Max daily dose= Immunizations No Immunization Information Available Medical Equipment Implanted Devices Device Date Implanted De vice Details PINNACLE GRIPTION December 07, 2020 CHACHO: [id number] Issuing Agency: [facility] Device Id: [id number] Lot Number: [id number] PINNACLE ALTRX December 07, 2020 CHACHO: [id number] Issuing Agency: [facility] Device Id: [id number] Lot Number: [id number] [place] December 07, 2020 U DI: [id number] Issuing Agency: [facility] Device Id: [id number] Lot Number: [id number] NA December 07, 2020 CHACHO : ()[id number] Issuing Agency: [facility] Device Id: [id number] Lot Number: [id number] [place] December 07, 2020 CHACHO: ()[id number] Issuing Agency: [facility] Device Id: [id number] Lot Number: [id number] Procedures Procedure Date Performed Status Total replacement of right hip joint December 07, 2020 completed Fingerstick Glucose December 07, 2020 completed Fingerstick Glucose December 07, 2020 completed Fingerstick Glucose December 07, 2020 completed Comprehensive Metabolic Profil Augus t 2020 completed CBC without Differential December 09, 2020 active Comprehensive Metabolic Profil Augus t 2020 active HIP/PELVIS UNI 2-3VIEW December 07, 2020 completed Relevant Diagnostic Tests and/or Laboratory Data Laboratory Results Test Date/Time Result Interpretation Reference Range Result Comment Performing Site Coronavirus (COVID-19)(PCR) December 022020 4:30am Negative NEGATIVE The [employer] COVID-19 MDx Assay is an end point RT-PCR assayintended for the qualitative detection of nucleic acid altzHPFT-QwK-5 virus. Positive results are indicative of thepresence of SARS-CoV-2 RNA; clinical correlation withpatient history and other diagnostic information isnecessary to determine patient infection status. Negativeresults do not preclude SARS-CoV-2 infection and should notbe used as the sole basis for patient management decisions. The [employer] MDx Assay is only for use under the Food andDrug Administration's Emergency Use Authorization. Main Laboratory Glucose Level December 08, 2020 12:18am 127 70-110 Patients taking Sulfasalazine may have falsely depressedGlucose levels. Patients taking Sulfapyridine may havefalsely elevated Glucose levels. Patients should be drawnfor Glucose before the initial administration of eitherdrug. Main Laboratory Bedside Glucose December 07, 2020 12:37pm 293 70-110 Main Laboratory Blood Urea Nitrogen December 08 12:18am 17 7-23 Main Laboratory Creatinine December 08, 2020 12:18am 0.665 0.500-1.300 Main Laboratory Estimated GFR/1.73 m2 December 08 021 12:18am > 60 Main Laboratory Chloride Level December 08, 2020 12:18am 109 99-110 Main Laboratory Sodium Level December 08, 2020 12:18am 143 136-147 Main Laboratory Potassium Level December 08, 2020 12:18am 4.7 3.5-5.1 Main Laboratory Serum Bicarbonate December 08, 2020 12:18a m 27 20-33 Main Laboratory Anion Gap December 08, 2020 12:18am 11.7 10.0-20.0 Main Laboratory Calcium Level December 08, 2020 12:18am 8.3 8.3-10.7 Main Laboratory Alkaline Phosphatase December 08 12:18am 47 45-117 Main Laboratory Total Protein December 08, 2020 12:18am 5.9 6.0-7.8 Main Laboratory Albumin December 08, 2020 12:18am 2.8 3.5-5.0 ESRD Dialysis patient Albumin reference range: 2.9-4.4 g/dL Main Laboratory Globulin December 08, 2020 12:18am 3.1 2.3-3.5 Main Laboratory Albumin/Globulin Ratio December 08, 2020 12:18am 0.9 1.0-2.5 Main Laboratory Total Bilirubin December 08, 2020 12:18am 0.4 0.1-1.1 The Dimension [place] Total Bilirubin is not recommended forpatients undergoing treatment with eltrombopag (Promacta)due to the potential for falsely elevated results. Main Laboratory Alanine Aminotransferase (ALT/SGPT) December 08, 2020 12:18am 36 6-54 Patients taking Sulfasalazine and/or Sul fapyridine may havefalsely depressed ALT levels. Patients should be drawn forALT before the initial administration of either drug. Main Laboratory Aspartate Amino Transf (AST/SGOT) [facility] 2020 12:18am 45 6-38 Patients taking Sulfasalazine and/or Sulfapyridine may havefalsely depressed AST levels. Patients should be drawn forAST before the initial administration of either drug. Main Laboratory Vital Signs Vital Reading Result Col lection Date/Time BP Systolic 108 mm[Hg] A ugust 2020 7:11am BP Diastolic 625 mm[Hg] December 08, 2020 7:11am Body Temperature 98.6 [degF] December 08, 2020 7:11am Respiratory rate 15 /min December 08, 2020 7:11am Heart Rate 98 /min Augus t 2020 7:11am Oxygen saturation by Pulse oximetry 98 % December 08, 2020 7:11am Height 67 [in_i] December 02, 2020 4:56am Weight 180.36 [lb_av] [facility] 2020 4:56am Weight 81.81 kg December 022020 4:56am BMI (Body Mass Index) 28.2 kg/m2 December 02, 2020 4:56am Advance Directives Advance Directive Response Recorded Date/Time Code Status Full code [facility] 11th, 2021 5:45am Advance Directives Health Care Proxy December 02, 2020 3:40am Insurance Providers Guarantor JABARI DUGAN Address [address] [address] Contact Info. Home Phone: Payer Policy Id Coverage Id Subscriber's Name Subscriber Id Effective Date Expiration Date R [id number] JABARI DUGAN Encounters Encounter Location(s) Ar rival/Admit Date Discharge/Depart Date Provider(s) Departed Surgical Day Care [facility] December 07, 2020 2:13am November 7:10am HOSPITALIST Registered Referral [facility] December 02, 2020 1:02am MARILYN NICKERSON M.D. Recent Diagnosis Onset Date HTN (hypertension) Functional Status No Functional Status information available Mental Status No Mental Status Information Available Assessments Diagnosis Onset Date Res olution Status HTN (hypertension) Active Goals Goals may be documented in an alternate section.
--- OUTSIDE RECORDS SUMMARY | 2021-03-02 15:24 | CCD | Continuity of Care Document ---
Author Author Alva NICKERSON MD Organization Unknown Address [address] [place] [address], [facility] [address] [place] [address] Phone [phone] Care Team Providers Care Crop Quantitative Geneticist Name Role Phone Amadeo Estrada MD AUTM [phone] Problems Active Problems Provider Date Pure hypercholesterolemia [...] smoker Allergies, Adverse Reactions, Alerts Active Allergies Reaction Severity Comments Date Iron 06/19/2016 Medications Active Medications SIG Qnty Indications [...] MD 11/03/2020 Oxycodone HCL 5mg Capsules 1 to 2 tablets by mouth every 4 hours as needed pain after surgery, do not fill until 12/07/20 40caps Dewayne Nickerson MD 11/03/2020 Tizanidine HCL 2mg Capsules 1 tab by mouth every day at bedtime as needed 90caps Elisa forrest MD 03/01/2020 Acetaminophen-Codeine #3 300-30mg Tablets [...] H/L Range Note Comprehensive Metabolic Prof 12/08/2020 [facility] [address] [place] [address] Glu 127 mg/dL High 70-110 1 BUN [...] High 6-38 5 Laboratory test finding 12/07/2020 [facility] [address] [place] [address] Lfglu 159 mg/dL High 70-110 Type&Screen 12/02/2020 [facility] [address] [place] [address] Blood Type B POSITIVE Normal Antibody Screen NEGATIVE Normal Laboratory test finding 12/02/2020 [facility] [address] [place] [address] Bretype B POSITIVE Normal Laboratory test finding 12/02/2020 [facility] [address] [place] [address] [id number] Rheonix Negative Normal Negative 6 Prothrombin Time/Inr 11/17/2020 [facility] entr [address] [place] [address] (315)- - Prothrombin Time 13.3 seconds Normal 12.5-14.3 Inr 0.99 Normal 7 Complete Blood Count 11/17/2020 [facility] entr [address] [place] [address] (315)- - White Blood Count 5.8 10 [...] Normal 0-0 Laboratory test finding 11/17/2020 [facility] [address] [place] [address] (315)- - Erythrocyte Sedimentation Rate 17 mm/hr Normal 0-30 Comprehensive Metabolic Profil 11/17/2020 [facility] [address] [place] [address] (315)- - Glucose, Fasting 103 mg/dL High [...] reference range: 2.9-4.4 g/dL 3 The Dimension [place] Total Bi lirubin is not recommended for [...] initial administration of either drug. 6 The [employer] COVID-19 MDx Ass ay is an endpoint [...] sole basis for patient management decisions. The [employer] MDx Assay is only for use under [...] Little GFR Left ESRD GFR <15 on RENT COLLECTOR Procedures Date Code Description Status 10/03/2020 94419 Office/Outpatient Established Hi gh MDM 40-54 Min Completed 10/03/2020 44842 X-Ray Pelvis Ap Only 1-2 Views C ompleted 08/15/2020 36542 Office/Outpatient Established Mo d MDM 30-39 Min Completed 08/15/2020 09544 X-Ray Hip Unilateral With Pelvis 2-3 Views Completed 07/08/2020 97548 Office/Outpatient Established Mo d MDM 30-39 Min Completed 07/08/2020 11463 Inject/Drain Joint/Bursa Major C ompleted 06/27/2020 88674 Office/Outpatient Established Lo w MDM 20-29 Min Completed Medical Devices Description No Information Available Encounters Type Date Location Provider Dx Diagnosis Office Visit 12/06/2020 10:00a Caleb Nickerson PA-C Z01.818 Encounter for other preprocedural examination 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, right hip Office Visit 10/03/2020 3:30p Caleb Nickerson MD M16.11 Unilateral primary osteoarthritis, right hip M70.61 Trochanteric bursitis, right hip Office Visit 08/15/2020 2:15p [facility] MD M16.11 Unilateral primary osteoarthritis, right hip M70.61 Trochanteric bursitis, right hip Office Visit 07/08/2020 3:45p [facility] MD M16.11 Unilateral primary osteoarthritis, right hip M70.61 Trochanteric bursitis, right hip Office Visit 06/27/2020 11:15a [place] PA-C M16.11 Unilateral primary osteoarthritis, right hip M70.61 Trochanteric bursitis, right hip Assessments Date Code Description Provider 12/06/2020 Z01.818 Encounter for other preprocedura gris Nickerson PA-C 12/06/2020 M16.11 Unilateral primary osteoarthriti [...] Nickerson PA-C Plan of Treatment Future Appointment(s):* 12/21/2020 1:30 pm - Dewayne Nickerson MD at [place] 10/03/2020 - Dewayne Nickerson MD* M16.11 Unilateral primary osteoarthritis, right hip* Follow up:* post op * M70.61 Trochanteric bursitis, right hip Functional Status Description No Information Available Mental Status Description No Information Available Referrals Refer to Dr Reason for Referral Status Appt Date Dewayne Nickerson MD SURGERY PER [facility] AT [facility] DEPT NO AUTH REQUIRED FOR TOTAL RT HIP([id number]) AND PER MALLORY AT [facility] DEPT. NO AUTH REQUIRED AND COVERED AT 100% SAME DAY SURGERY IF NEEDS MORE TIME HOSPITAL WILL GET THAT TO SURGERY NT CALL REF #[id number] Created [facility], [address] [address] [phone] Heidi Nickerson PA-C FLUORO INJ NO AUTH REQUIRED PER ANNY Victor FOR FLUOROSCOPIC INJECTION ([id number], [id number]) TO BETTY MARTIN Created [address] [place] [address] [phone] Dewayne Nickerson MD REF. NO AUTH REQUIRED FOR R EF TO DR KEVIN QUICK TO TRANS NT Created [address] [place] [address], [address] [place] [phone] Heidi Nickerson PA-C MRI APPROVED PER VY Sen FOR MRI OF RIGHT HIP ([id number]) TO BETTY MARTIN Created [address] [place] [phone]
--- OUTSIDE RECORDS SUMMARY | 2021-03-02 15:24 | CCD | Continuity of Care Document ---
Author Author Alva NICKERSON MD Organization Unknown Address [address] [place] [address], [facility] [address] [place] [address] Phone [phone] Care Team Providers Care Manager Global Name Role Phone Amadeo Estrada MD AUTM [phone] Problems Active Problems Provider Date Pure hypercholesterolemia [...] H/L Range Note Comprehensive Metabolic Prof 12/08/2020 [facility] [address] [place] [address] Glu 127 mg/dL High 70-110 1 BUN [...] 5 Laboratory test finding 12/07/2020 [facility] [address] [place] [address] Lfglu 159 mg/dL High 70-110 Type&Screen 12/02/2020 [facility] [address] [place] [address] Blood Type B POSITIVE Normal Antibody Screen NEGATIVE Normal Laboratory test finding 12/02/2020 [facility] [address] [place] [address] Bretype B POSITIVE Normal Laboratory test finding 12/02/2020 [facility] [address] [place] [address] [id number] Rheonix Negative Normal Negative 6 Prothrombin Time/Inr 11/17/2020 [facility] entr [address] [place] [address] (315)- - Prothrombin Time 13.3 seconds Normal 12.5-14.3 Inr 0.99 Normal 7 Complete Blood Count 11/17/2020 [facility] entr [address] [place] [address] (315)- - White Blood Count 5.8 10 [...] % Normal 0-0 Laboratory test finding 11/17/2020 [facility] [address] [place] [address] (315)- - Erythrocyte Sedimentation Rate 17 mm/hr Normal 0-30 Comprehensive Metabolic Profil 11/17/2020 [facility] [address] [place] [address] (315)- - Glucose, Fasting 103 mg/dL High [...] reference range: 2.9-4.4 g/dL 3 The Dimension [place] Total Bi lirubin is not recommended for [...] initial administration of either drug. 6 The [employer] COVID-19 MDx Ass ay is an endpoint [...] sole basis for patient management decisions. The [employer] MDx Assay is only for use under [...] Little GFR Left ESRD GFR <15 on WET FINISHER Procedures Date Code Description Status 10/03/2020 02350 Office/Outpatient Established Hi gh MDM 40-54 Min Completed 10/03/2020 92977 X-Ray Pelvis Ap Only 1-2 Views C ompleted 08/15/2020 38725 Office/Outpatient Established Mo d MDM 30-39 Min Completed 08/15/2020 87830 X-Ray Hip Unilateral With Pelvis 2-3 Views Completed 07/08/2020 09478 Office/Outpatient Established Mo d MDM 30-39 Min Completed 07/08/2020 59041 Inject/Drain Joint/Bursa Major C ompleted 06/27/2020 16121 Office/Outpatient Established Lo w MDM 20-29 Min Completed Medical Devices Description No Information Available Encounters Type Date Location Provider Dx Diagnosis Office Visit 12/06/2020 10:00a Caleb Nickerson PA-C Z01.818 Encounter for other preprocedural examination 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, right hip Office Visit 10/03/2020 3:30p Caleb Nickerson MD M16.11 Unilateral primary osteoarthritis, right hip M70.61 Trochanteric bursitis, right hip Office Visit 08/15/2020 2:15p [place] [place] M16.11 Unilateral primary osteoarthritis, right hip M70.61 Trochanteric bursitis, right hip Office Visit 07/08/2020 3:45p [place] MD M16.11 Unilateral primary osteoarthritis, right hip M70.61 Trochanteric bursitis, right hip Office Visit 06/27/2020 11:15a [place] PA-C M16.11 Unilateral primary osteoarthritis, right [...] M16.11 Unilateral primary osteoarthriti s, right hip Dewayen Nickerson MD 08/15/2020 M70.61 Trochanteric bursitis, right [...] 1:30 pm - Dewayne Nickerson MD at [place] 10/03/2020 - Dewayne Nickerson MD* M16.11 Unilateral primary osteoarthritis, right hip* Follow up:* post op * M70.61 Trochanteric bursitis, right hip Functional Status Description No Information Available Mental Status Description No Information Available Referrals Refer to Dr Reason for Referral Status Appt Date Dewayne Nickerson MD SURGERY PER [facility] AT [facility] A [facility] DEPT NO AUTH REQUIRED FOR TOTAL RT HIP([id number]) AND PER MALLORY AT [facility] DEPT. NO AUTH REQUIRED AND COVERED AT 100% SAME DAY SURGERY IF NEEDS MORE TIME HOSPITAL WILL GET THAT TO SURGERY NT CALL REF #[id number] Created [facility], [address] [address] [phone] Heidi Nickerson PA-C FLUORO INJ NO AUTH REQUIRED PER ANNY Victor FOR FLUOROSCOPIC INJECTION ([id number], [phone]) TO BETTY MARTIN Created [address] [place] [phone] [phone] Dewayne Nickerson MD REF. NO AUTH REQUIRED FOR R EF TO DR KEVIN QUICK TO TRANS NT Created [address] [place] [address], [address] [place] [address] [phone] Heidi Nickerson PA-C MRI APPROVED PER VY Sen FOR MRI OF RIGHT HIP ([id number]) TO BETTY MARTIN Created [address] [place] [address] [phone]
--- OUTSIDE RECORDS SUMMARY | 2021-03-02 15:24 | CCD | Continuity of Care Document ---
Author Author Alva Estrada MD Organization Unknown Address [address] [facility] [address] [place] [address] Phone [phone] Care Team Providers Care Bobbin Handler Name Role Phone Amadeo Estrada JR, MD AUTM Unavailable [facility] AUTM Vishnu Richter MD AUTM [phone] Problems Active Problems Provider Date Pure hypercholesterolemia Amadeo Estrada MD Onset: 04/16 Lipoprotein deficiency disorder Lab Schedule Onset: 1 06/17/2010 Essential hypertension Amadeo Estrada MD Onset: 04/16/20 11 Diabetes mellitus Amadeo Estrada MD Onset: 04/16/2011 Morbid obesity Amadeo Estrada MD Onset: 04/16/2011 Nonproliferative retinopathy due to diabetes mellitus LILIANA Camacho Onset: 04/16/2011 Social History Type Date Description Comments Sex Unknown ETOH Use Never used alcohol Tobacco Use Start: Unknown End: Unknown Patient is a former smoker SMOKED FOR 10YRS 1 XUAN A DAY Allergies, Adverse Reactions, Alerts Active Allergies Reaction Severity Comments Date Pravachol,Zetia,Januvia 01/28 Iron including fe infusion 2016 Medications Active Medications SIG Qnty Indications Ordering Provide r Date Metformin HCL 500mg Tablets Take 2 Tablets By Mouth With Supper 180tabs Amadeo Estrada MD 08/18 Benazepril HCL 20mg Tablets 1 by mouth every day 90tabs Amadeo Estrada MD 07/23/2018 Gabapentin 300mg Capsules 1 by mouth every am 90caps Amadeo Estrada MD 01/22/2018 Ferrousul 325(65Fe) mg Tablets 1 by mouth twice weekly 45tabs Amadeo Estrada MD 07/22/[address] Andrade by mouth twice daily 180tabs Amadeo Estrada MD 12/08/2013 Multivitamins Tablets 1 po q d Amadeo Estrada MD 09/20/2010 Vitamin B-12 Extended Release 1000mcg Tablets ER 1 po qd 30tabs Amadeo Estrada MD 2010 Biotin 5000mcg Capsules qd Amadeo Estrada MD 09/20/2010 Vitamin D 1000Unit Tablets 1 po qd Amadeo Estrada MD 09/20/2010 Proctosol HC 2.5% Cream as directed 1ounce Amadeo Estrada MD 02/15/2010 Ecotrin Low Strength 81mg Tablets DR Amadeo Estrada MD 11/01/2009 BD Ultra Fine Syringes 1ML/30G, 12.7 mm Misc use as directed 30units Amadeo Estrada MD Immunizations CPT Code Status Date Vaccine Lot # [id number] Given 01/23/2011 PPD [id number] Vital Signs Date Vital Result Comment 11/30/2020 1:25pm BP Systolic 142 mmHg BP Diastolic 72 mmHg Heart Rate 78 /min Height 65 inches 5'5" Weight 184.00 lb BMI (Body Mass Index) 30.6 kg/m2 08/17/2020 9:34am BP Systolic 130 mmHg BP Diastolic 72 mmHg Heart Rate 68 /min Height 65 inches 5'5" Weight 184.00 lb BMI (Body Mass Index) 30.6 kg/m2 Results Test Acquired Date Facility Test Result H/L Range Note Comprehensive Metabolic Prof 12/08/2020 [place] [address] [phone] Glu 127 mg/dL High 70-110 1 BUN [...] U/L High 6-38 5 Laboratory test finding 12/08/2020 [place] [address] [phone] Lfglu 138 mg/dL High 70-110 Laboratory test finding 12/07/2020 [place] [address] [phone] Lfglu 293 mg/dL High 70-110 Laboratory test finding 12/07/2020 [place] [address] [phone] Lfglu 293 mg/dL High 70-110 Laboratory test finding 12/07/2020 [place] [address] [phone] Lfglu 159 mg/dL High 70-110 Type&Screen 12/02/2020 [place], [place] 8210134 [phone] Blood Type B POSITIVE Normal Antibody Screen NEGATIVE Normal Laboratory test finding 12/02/2020 [place], [place] 1241006 [phone] Bretype B POSITIVE Normal Laboratory test finding 12/02/2020 [place], [place] 2236943 [phone] [id number] Rheonix Negative Normal Negative 6 Prothrombin Time/Inr 11/17/2020 [facility] enter [address] [place] [address] [phone] Prothrombin Time 13.3 seconds Normal 12.5-14.3 Inr 0.99 Normal 7 Comprehensive Metabolic Profil 11/17/2020 [facility] [address] [place], [place] 9050359 [phone] Glucose, Fasting 103 mg/dL High 70-100 Blood [...] Normal 3.2-5.2 Albumin/Globulin Ratio 1.3 Normal 1.2-2.2 Laboratory test finding 11/17/[address] 1065707 [phone] Erythrocyte Sedimentation Rate 17 mm/hr Normal 0 -30 Complete Blood Count 11/17/[address] 2214767 [phone] White Blood Count 5.8 10 Normal 4.0-10.0 [...] Blood Cell % 0.0 % Normal 0-0 Vitamin B12 & Folate 08/17/[address] 6221269 [phone] Vitamin B12 Level > 2000 pg/mL Normal 9 Folate > 24.0 NG/ML Normal 10 Complete Blood Count 08/17/2020 [facility] Escort Blind: [place] [address] [phone] WBC 5.9 x10*3/UL 4.1 - 10.9 RBC 4.76 x10*6/UL 4.20 - 6.30 Hemoglobin 10.6 g/dL Low 12.0 - 18.0 11 Hematocrit 33.3 % Low 37.0 - 51.0 MCV 70.0 fL Low 80.0 - 97.0 MCH 22.4 pg Low 26.0 - 32.0 MCHC 32.0 g/dL 31.0 - 38.0 RDW 15.3 % High 11.6 - 13.7 PLT 218 x10*3/UL 140 - 440 MPV 8.5 FL 7.8 - 11.0 Lymph % 27.6 % 10.0 - 58.5 Mid % 7.2 % 1.7 - 9.3 Neut % 65.2 % 37.0 - 92.0 Lymph # 1.6 x10*3/UL 0.6 - 4.1 Mid # 0.5 x10*3/UL 0.1 - 0.6 Neut # 3.8 x10*3/UL 2.0 - 7.8 A1c 08/17/2020 [facility] , Escort Blind: [place] [address] [phone] Hba1c 7.2 % High <5.7 12 Est Avg Glucose 160 mg/dL High 60 - 110 Comprehensive Chem Profile 08/17/2020 [facility], Escort Blind: [place] [address] [phone] Glucose 89 mg/dL 74 - 99 13 BUN 17 mg/dL 7 - 18 Creatinine 0.8 mg/dL 0.6 - 1.3 Sodium 141 mEq/L 136 - 145 Potassium 4.6 mEq/L 3.5 - 5.1 Chloride 104 mEq/L 98 - 107 Carbon Dioxide 28 mEq/L 21 - 32 Calcium 9.3 mg/dL 8.5 - 10.1 Alk. Phosphatase 73 mg/dL 46 - 116 Total Bilirubin 0.4 mg/dL 0.2 - 1.0 Ast (Sgot) 49 U/L High 15 - 37 Alt (SGPT) 55 U/L 12 - 78 Albumin 4.1 g/dL 3.4 - 5.0 Total Protein 7.6 g/dL 6.4 - 8.2 A/G Ratio 1.17 CALC 1.00 - 1.90 GFR >= 60 mL/min >60 GFR >= 60 mL/min >60 14 Laboratory test finding 08/17/2020 [facility] Escort Blind: [place] [address] [phone] Thyroid Stimulating Hormone 2.60 uIU/mL 0.3 6 - 3.74 1 Patients taking Sulfasalazin e may have falsely depressed Glucose levels. Patients taking Sulfapyridine may have falsely elevated Glucose levels. Patients should be drawn for Glucose before the initial administration of either drug. 2 ESRD Dialysis patient Albumi n reference range: 2.9-4.4 g/dL 3 The Dimension [place] Total Bi lirubin is not recommended for [...] initial administration of either drug. 6 The [employer] COVID-19 MDx Ass ay is an endpoint [...] Little GFR Left ESRD GFR <15 on GAS AND OIL SERVICER 9 VITAMIN B12 NORMAL RANGE NORMAL 247 - 911 PG/ML INDETERMINATE 211 - 246 PG/ML DEFICIENT LESS THAN 211 PG/ML 10 FOLATE NORMAL RANGE NORMAL GREATER THAN 5.4 NG/ML INDETERMINATE 3.4-5.4 NG/ML DEFICIENT LESS THAN 3.4 NG/ML 11 NOTE: RESULT VERIFIED. 12 Lab Result Notes: Pre-Diabetes 5.7 - 6.4 % Diabetes = or > 6.5% 13 100-125 mg/dL PRE-DIABET ES/FASTING >126 mg/dL DIABETES/FASTING 14 CHRONIC KIDNEY DISEASE STAGI NG PER NKF STAGE I & II GFR >= 60 NORMAL TO MILDLY DECREASED STAGE III GFR 30-59 MODERATELY DECREASED STAGE IV GFR 15-29 SEVERELY DECREASED STAGE V GFR <15 VERY LITTLE GFR LEFT ESRD GFR <15 ON GAS AND OIL SERVICER Procedures Date Code Description Status 11/30/2020 94785 Office/Outpatient Established Mo d MDM 30-39 Min Completed 08/17/2020 91699 Office/Outpatient Established Mo d MDM 30-39 Min Completed 06/06/2018 [id number] Diabetic Retinal Eye Exam [facility] 04/03/2017 [id number] Diabetic Retinal Eye Exam [facility] 02/25/2017 [id number] Diabetic Retinal Eye Exam [facility] 01/07/2014 [id number] Colonoscopy Completed Medical Devices Description No Information Available Encounters Type Date Location Provider Dx Diagnosis Office Visit 11/30/2020 1:30p [facility] Z01.810 Encounter for preprocedural cardiovascul ar examination 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, right hip I10 Essential (primary) hyperten oriana E11.42 Type 2 diabetes mellitus wit h diabetic polyneuropathy D50.9 Iron deficiency anemia, unsp ecified E78.00 Pure hypercholesterolemia, u nspecified Z98.84 Bariatric surgery status Z80.0 Family history of malignant neoplasm of digestive organs Office Visit 08/17/2020 9:40a [facility] Amadeo Estrada MD I10 Essential (primary) hypertension E11.42 Type 2 diabetes mellitus wit h diabetic polyneuropathy D50.9 Iron deficiency anemia, unsp ecified E78.00 Pure hypercholesterolemia, u nspecified Z98.84 Bariatric surgery status M48.061 Spinal stenosis, lumbar jt on without neurogenic mehran Z80.0 Family history of malignant neoplasm of digestive organs Assessments Date Code Description Provider 11/30/2020 Z01.810 Encounter for preprocedural card iovascular examination Amadeo Estrada MD 11/30/2020 M16.11 Unilateral primary osteoarthriti s, right hip Amadeo Estrada MD 11/30/2020 I10 Essential (primary) hypertension Amadeo Estrada MD 11/30/2020 E11.42 Type 2 diabetes mellitus with di abetic polyneuropathy Amadeo Estrada MD 11/30/2020 D50.9 Iron deficiency anemia, unspecif ied Amadeo Estrada MD 11/30/2020 E78.00 Pure hypercholesterolemia, unspe cified Amadeo Estrada MD 11/30/2020 Z98.84 Bariatric surgery status Amadeo Estrada MD 11/30/2020 Z80.0 Family history of malignant neop lasm of digestive organs Amadeo Estrada MD 08/17/2020 I10 Essential (primary) hypertension Amadeo Estrada MD 08/17/2020 E11.42 Type 2 diabetes mellitus with di abetic polyneuropathy Amadeo Estrada MD 08/17/2020 D50.9 Iron deficiency anemia, unspecif ied Amadeo Estrada MD 08/17/2020 E78.00 Pure hypercholesterolemia, unspe cified Amadeo Estrada MD 08/17/2020 Z98.84 Bariatric surgery status Amadeo Estrada MD 08/17/2020 M48.061 Spinal stenosis, lumbar region w ithout neurogenic claudicati Amadeo Estrada MD 08/17/2020 Z80.0 Family history of malignant neop lasm of digestive organs Amadeo Estrada MD Plan of Treatment Future Appointment(s):* 05/02/2021 9:40 am - [facility] * 05/02/2021 7:50 am - [facility] 02/19/2020 - Amadeo Estrada MD* I10 Essential (primary) hypertension* Comments:* Hypertension at JNC-8 guidelines * E11.9 Type 2 diabetes mellitus without complications * E78.00 Pure hypercholesterolemia, unspecified * D50.9 Iron deficiency anemia, unspecified * Z98.84 Bariatric surgery status * M16.12 Unilateral primary osteoarthritis, left hip * Z80.0 Family history of malignant neoplasm of digestive organs * M48.061 Spinal stenosis, lumbar region without neurogenic claudicati * All * New Medication:* Zolpidem Tartrate 5 mg - take one tablet by mouth at bedtime as needed for sleep maximum daily dose = 1 tablet Functional Status Description No Information Available Mental Status Description No Information Available Referrals Refer to Reason for Referral Status Appt Date Dat Sheffield MD CONSULT FOR SCREENING COLONOSCOPY Patient No tified 09/22/2020 [facility] Medical Practice [address] [address] [phone]
--- OUTSIDE RECORDS SUMMARY | 2021-03-02 15:24 | CCD | Continuity of Care Document ---
Author Author Alva Estrada MD Organization Unknown Address [address] [facility] [address] [place] [address] Phone [phone] Care Team Providers Care Employment Case Manager Name Role Phone Amadeo Estrada JR, MD AUTM Unavailable [facility] AUTM Vishnu Richter MD AUTM [phone] Problems Active Problems Provider Date Pure hypercholesterolemia [...] CPT Code Status Date Vaccine Lot # [id number] Given 01/23/2011 PPD [id number] Vital Signs Date Vital Result Comment 11/30/2020 [...] H/L Range Note Comprehensive Metabolic Prof 12/08/2020 [place] [address] [phone] Glu 127 mg/dL High 70-110 1 BUN [...] High 6-38 5 Laboratory test finding 12/07/2020 [place] [address] [phone] Lfglu 293 mg/dL High 70-110 Laboratory test finding 12/07/2020 [place] [address] [phone] Lfglu 293 mg/dL High 70-110 Laboratory test finding 12/07/2020 [place] [address] [phone] Lfglu 159 mg/dL High 70-110 Type&Screen 12/02/2020 [place] [address] [phone] Blood Type B POSITIVE Normal Antibody Screen NEGATIVE Normal Laboratory test finding 12/02/2020 [place] [address] [phone] Bretype B POSITIVE Normal Laboratory test finding 12/02/2020 [place] [address] [phone] [id number] Rheonix Negative Normal Negative 6 Prothrombin Time/Inr 11/17/2020 [facility] enter [address] [place] [address] [id number] [phone] Prothrombin Time 13.3 seconds Normal 12.5-14.3 Inr 0.99 Normal 7 Complete Blood Count 11/17/2020 [facility] enter [address] [place] [address] [id number] [phone] White Blood Count 5.8 10 Normal 4.0-10.0 [...] % Normal 0-0 Laboratory test finding 11/17/2020 [facility] [address] [place] [address] [phone] Erythrocyte Sedimentation Rate 17 mm/hr Normal 0 -30 Comprehensive Metabolic Profil 11/17/[address] [address] [phone] Glucose, Fasting 103 mg/dL High 70-100 Blood [...] Normal 3.2-5.2 Albumin/Globulin Ratio 1.3 Normal 1.2-2.2 Vitamin B12 & Folate 08/17/[address] [address] [phone] Vitamin B12 Level > 2000 pg/mL Normal 9 Folate > 24.0 NG/ML Normal 10 Complete Blood Count 08/17/2020 [facility] Septic Cleaner: [place] [address] [phone] WBC 5.9 x10*3/UL 4.1 - 10.9 RBC [...] 3.8 x10*3/UL 2.0 - 7.8 A1c 08/17/2020 [facility] , Septic Cleaner: Dr Amadeo Estrada [place], [place] [id number] [phone] Hba1c 7.2 % High <5.7 12 Est Avg Glucose 160 mg/dL High 60 - 110 Comprehensive Chem Profile 08/17/2020 [facility], Septic Cleaner: Dr Amadeo Estrada [place], [place] [id number] [phone] Glucose 89 mg/dL 74 - 99 13 [...] mL/min >60 14 Laboratory test finding 08/17/2020 [facility]: [place] [address] [phone] Thyroid Stimulating Hormone 2.60 uIU/mL 0.3 6 - 3.74 1 Patients taking Sulfasalazin e may have falsely depressed Glucose levels. Patients taking Sulfapyridine may have falsely elevated Glucose levels. Patients should be drawn for Glucose before the initial administration of either drug. 2 ESRD Dialysis patient Albumi n reference range: 2.9-4.4 g/dL 3 The Dimension [place] Total Bi lirubin is not recommended for [...] initial administration of either drug. 6 The Save22 COVID-19 MDx Ass ay is an endpoint [...] Little GFR Left ESRD GFR <15 on WASHERY BOSS 9 VITAMIN B12 NORMAL RANGE NORMAL 247 [...] LITTLE GFR LEFT ESRD GFR <15 ON WASHERY BOSS Procedures Date Code Description Status 11/30/2020 41809 Office/Outpatient Established Mo d MDM 30-39 Min Completed 08/17/2020 98496 Office/Outpatient Established Mo d MDM 30-39 Min Completed 06/06/2018 [id number] Diabetic Retinal Eye Exam [facility] 04/03/2017 [id number] Diabetic Retinal Eye Exam [facility] 02/25/2017 [id number] Diabetic Retinal Eye Exam [facility] 01/07/2014 [id number] Colonoscopy Completed Medical Devices Description No Information Available Encounters Type Date Location Provider Dx Diagnosis Office Visit 11/30[facility]2020 [facility]p [facility] Z01.810 Encounter for preprocedural cardiovascul ar examination 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 * 05/02/2021 7:50 am - Lab Schedule at [facility] 02/19/2020 - Amadeo Estrada MD* I10 [...] FOR SCREENING COLONOSCOPY Patient No tified 09/22/2020 [facility] Medical Practice [address] [address] [phone]
--- OUTSIDE RECORDS SUMMARY | 2021-03-02 15:24 | CCD | Continuity of Care Document ---
Author Author Alva NICKERSON MD Organization Unknown Address [address] [place] [address], [facility] [address] [place] [address] Phone [phone] Care Team Providers Care Tour Bus Driver Name Role Phone Amadeo Estrada MD AUTM [phone] Problems Active Problems Provider Date Pure hypercholesterolemia [...] H/L Range Note Comprehensive Metabolic Prof 12/08/2020 [facility] [address] [place] [address] Glu 127 mg/dL High 70-110 1 BUN [...] High 6-38 5 Laboratory test finding 12/07/2020 [facility] [address] [place] [address] Lfglu 159 mg/dL High 70-110 Type&Screen 12/02/2020 [facility] [address] [place] [address] Blood Type B POSITIVE Normal Antibody Screen NEGATIVE Normal Laboratory test finding 12/02/2020 [facility] [address] [place] [address] Bretype B POSITIVE Normal Laboratory test finding 12/02/2020 [facility] [address] [place] [address] [id number] Rheonix Negative Normal Negative 6 Prothrombin Time/Inr 11/17/2020 [facility] entr [address] [place] [address] [phone] Prothrombin Time 13.3 seconds Normal 12.5-14.3 Inr 0.99 Normal 7 Complete Blood Count 11/17/2020 [facility] entr [address] [place] [address] [phone] White Blood Count 5.8 10 [...] % Normal 0-0 Laboratory test finding 11/17/2020 [facility] [address] [place] [address] [phone] Erythrocyte Sedimentation Rate 17 mm/hr Normal 0-30 Comprehensive Metabolic Profil 11/17/2020 [facility] [address] [place] [address] [phone] - Glucose, Fasting 103 mg/dL High [...] reference range: 2.9-4.4 g/dL 3 The Dimension [place] Total Bi lirubin is not recommended for [...] initial administration of either drug. 6 The RealPage COVID-19 MDx Ass ay is an endpoint [...] sole basis for patient management decisions. The Leixirx MDx Assay is only for use under [...] Little GFR Left ESRD GFR <15 on PIN PULLER Procedures Date Code Description Status 12/07/2020 08169 Arthroplasty "Total Hip" W/ Or W /O Graft Completed 10/03/2020 64657 Office/Outpatient Established Hi gh MDM 40-54 Min Completed 10/03/2020 39859 X-Ray Pelvis Ap Only 1-2 Views C ompleted 08/15/2020 05605 Office/Outpatient Established Mo d MDM 30-39 Min Completed 08/15/2020 51438 X-Ray Hip Unilateral With Pelvis 2-3 Views Completed 07/08/2020 45744 Office/Outpatient Established Mo d MDM 30-39 Min Completed 07/08/2020 97054 Inject/Drain Joint/Bursa Major C ompleted 06/27/2020 01728 Office/Outpatient Established Lo w MDM 20-29 Min Completed Medical Devices Description No Information Available Encounters Type Date Location Provider Dx Diagnosis Office Visit 12/06/2020 10:00a Caleb Nickerson PA-C Z01.818 Encounter for other preprocedural examination 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, right hip Office Visit 10/03/2020 3:30p [place] MD M16.11 Unilateral primary osteoarthritis, right hip M70.61 Trochanteric bursitis, right hip Office Visit 08/15/2020 2:15p [place] Nick[place] MD M16.11 Unilateral primary osteoarthritis, right hip M70.61 Trochanteric bursitis, right hip Office Visit 07/08/2020 3:45p [place] Nick[place] MD M16.11 Unilateral primary osteoarthritis, right hip M70.61 Trochanteric bursitis, right hip Office Visit 06/27/2020 11:15a [place] PA-C M16.11 Unilateral primary osteoarthritis, right hip M70.61 Trochanteric bursitis, right hip Assessments Date Code Description Provider 12/07/2020 M16.11 Unilateral primary osteoarthriti s, right [...] 1:30 pm - Dewayne Nickerson MD at [place] 10/03/2020 - Dewayne Nickerson MD* M16.11 Unilateral primary osteoarthritis, right hip* Follow up:* post op * M70.61 Trochanteric bursitis, right hip Functional Status Description No Information Available Mental Status Description No Information Available Referrals Refer to Dr Reason for Referral Status Appt Date Dewayne Nickerson MD SURGERY PER [facility] A [facility] DEPT NO AUTH REQUIRED FOR TOTAL RT HIP([id number]) AND PER [facility]ORY AT [facility] DEPT. NO AUTH REQUIRED AND COVERED AT 100% SAME DAY SURGERY IF NEEDS MORE TIME HOSPITAL WILL GET THAT TO SURGERY NT CALL REF #[id number] Created [facility], [address] [address] [phone] Heidi Nickerson PA-C FLUORO INJ NO AUTH REQUIRED PER ANNY Victor FOR FLUOROSCOPIC INJECTION ([id number], [id number]) TO BETTY MARTIN Created [address] [place] [address] [phone] Dewayne Nickerson MD REF. NO AUTH REQUIRED FOR R EF TO DR KEVIN QUICK TO TRANS NT Created [facility], [address] [address] [phone] Heidi Nickerson PA-C MRI APPROVED PER VY Sen FOR MRI OF RIGHT HIP ([id number]) TO BETTY MARTIN Created [facility] [address] [address] [phone]
--- OUTSIDE RECORDS SUMMARY | 2021-03-02 15:25 | CCD ---
Author Author [facility] Organization [facility] Address Unknown Phone Unavailable Care Team Providers Care Loan Operations Manager Name Role Phone Fish, B Dewayne VIGIL Unavailable Unavailable Fish, B Dewayne VIGIL Unavailable Unavailable Fish, B Dewayne VIGIL Unavailable Unavailable Fish, B Dewayne VIGIL Unavailable Unavailable Fish, B Dewayne VIGIL Unavailable Unavailable Fish, B Dewayne VIGIL Unavailable Unavailable Fish, B Dewayne VIGIL Unavailable Unavailable Fish, B Dewayne VIGIL Unavailable Unavailable Fish, B Dewayne VIGIL Unavailable Unavailable Fish, B Dewayne VIGIL Unavailable Unavailable Fish, B Dewayne VIGIL Unavailable Unavailable Fish, B Dewayne VIGIL Unavailable Unavailable Fish, B Dewayne VIGIL Unavailable Unavailable Fish, B Dewayne VIGIL Unavailable Unavailable Fish, B Dewayne VIGIL Unavailable Unavailable Fish, B Dewayne VIGIL Unavailable Unavailable Fish, B Dewayne VIGIL Unavailable Unavailable Fish, B Dewayne VIGIL Unavailable Unavailable Fish, B Dewayne VIGIL Unavailable Unavailable Fish, B Dewayne VIGIL Unavailable Unavailable Fish, B Dewayne VIGIL Unavailable Unavailable Fish, B Dewayne VIGIL Unavailable Unavailable Fish, B Dewayne VIGIL Unavailable Unavailable Fish, B Dewayne VIGIL Unavailable Unavailable Fish, B Dewayne VIGLI Unavailable Unavailable Fish, B Dewayne VIGIL Unavailable Unavailable Fish, B Dewayne VIGIL Unavailable Unavailable Fish, B Dewayne VIGIL Unavailable Unavailable Fish, B Dewayne VIGIL Unavailable Unavailable Fish, B Dewayne VIGIL Unavailable Unavailable Fish, B Dewayne VIGIL Unavailable Unavailable Fish, B Dewayne VIGIL Unavailable Unavailable Fish, B Dewayne VIGIL Unavailable Unavailable Fish, B Dewayne VIGIL Unavailable Unavailable Fish, B Dewayne VIGIL Unavailable Unavailable Fish, B Dewayne VIGIL Unavailable Unavailable Fish, B Dewayne VIGIL Unavailable Unavailable Fish, B Dewayne VIGIL Unavailable Unavailable Fish, B Dewayne VIGIL Unavailable Unavailable Fish, B Dewayne VIGIL Unavailable Unavailable Fish, B Dewayne VIGIL Unavailable Unavailable Fish, B Dewayne VIGIL Unavailable Unavailable Fish, B Dewayne VIGIL Unavailable Unavailable Fish, B Dewayne VIGIL Unavailable Unavailable Fish, B Dewayne VIGIL Unavailable Unavailable Fish, B Dewayne VIGIL Unavailable Unavailable Fish, B Dewayne VIGIL Unavailable Unavailable Fish, B Dewayne VIGIL Unavailable Unavailable Fish, B Dewayne VIGIL Unavailable Unavailable Fish, B Dewayne VIGIL Unavailable Unavailable Fish, B Dewayne VIGIL Unavailable Unavailable Fish, B Dewayne VIGIL Unavailable Unavailable Fish, B Dewayne VIGIL Unavailable Unavailable Fish, B Dewayne VIGIL Unavailable Unavailable Fish, B Dewayne VIGIL Unavailable Unavailable Fish, B Dewayne VIGIL Unavailable Unavailable Fish, [facility], PA-C Unavailable Unavailabl e Fish, [facility], PA-C Unavailable Unavailabl e Fish, [facility], PA-C Unavailable Unavailabl e Fish, [facility], PA-C Unavailable Unavailabl e Fish, [facility], PA-C Unavailable Unavailabl e Fish, [facility], PA-C Unavailable Unavailabl e Fish, [facility], PA-C Unavailable Unavailabl e Fish, [facility], PA-C Unavailable Unavailabl e Fish, [facility], PA-C Unavailable Unavailabl e Fish, [facility], PA-C Unavailable Unavailabl e Fish, [facility], PA-C Unavailable Unavailabl e Fish, [facility], PA-C Unavailable Unavailabl e Fish, [facility], PA-C Unavailable Unavailabl e Fish, [facility], PA-C Unavailable Unavailabl e Fish, [facility], PA-C Unavailable Unavailabl e Fish, [facility], PA-C Unavailable Unavailabl e Fish, [facility], PA-C Unavailable Unavailabl e Fish, [facility], PA-C Unavailable Unavailabl e Fish, [facility], PA-C Unavailable Unavailabl e Fish, [facility], PA-C Unavailable Unavailabl e Fish, [facility], PA-C Unavailable Unavailabl e Fish, [facility], PA-C Unavailable Unavailabl e Fish, [facility], PA-C Unavailable Unavailabl e Fish, [facility] Unavailable Unavailabl e Fish, [facility] Unavailable Unavailabl e Fish, [facility] Unavailable Unavailabl e Fish, [facility], PA-C Unavailable Unavailabl e Fish, Ellen [facility], PA-C Unavailable Unavailabl e Fish, [facility], PA-C Unavailable Unavailabl e Fish, [facility], PA-C Unavailable Unavailabl e Fish, [facility], PA-C Unavailable Unavailabl e Fish, [facility], PA-C Unavailable Unavailabl e Fish, [facility] Unavailable Unavailabl e Fish, [facility] Unavailable Unavailabl e Fish, [facility] Unavailable Unavailabl e Fish, [facility], PA-C Unavailable Unavailabl e August, Kerri Ramos MD Unavailable Unavailable August, Kerri Ramos MD Unavailable Unavailable August, Kerri Ramos MD Unavailable Unavailable August, Kerri Ramos MD Unavailable Unavailable August, Kerri Ramos MD Unavailable Unavailable August, Kerri Ramos MD Unavailable Unavailable August, Kerri Ramos MD Unavailable Unavailable August, Kerri Ramos MD Unavailable Unavailable August, Kerri Ramos MD Unavailable Unavailable August, Kerri Ramos MD Unavailable Unavailable AugustKerri MD Unavailable Unavailable AugustKerri MD Unavailable Unavailable AugustKerri MD Unavailable Unavailable AugustKerri MD Unavailable Unavailable AugustKerri MD Unavailable Unavailable AugustKerri MD Unavailable Unavailable AugustKerri MD Unavailable Unavailable AugustKerri MD Unavailable Unavailable AugustKerri MD Unavailable Unavailable AugustKerri MD Unavailable Unavailable AugustKerri MD Unavailable Unavailable AugustKerri MD Unavailable Unavailable AugustKerri MD Unavailable Unavailable AugustKerri MD Unavailable Unavailable AugustKerri MD Unavailable Unavailable AugustKerri MD Unavailable Unavailable AugustKerri MD Unavailable Unavailable AugustKerri MD Unavailable Unavailable AugustKerri MD Unavailable Unavailable AugustKerri MD Unavailable Unavailable AugustKerri MD Unavailable Unavailable AugustKerri MD Unavailable Unavailable AugustKerri MD Unavailable Unavailable AugustKerri MD Unavailable Unavailable AugustKerri MD Unavailable Unavailable AugustKerri MD Unavailable Unavailable AugustKerri MD Unavailable Unavailable AugustKerri MD Unavailable Unavailable AugustKerri MD Unavailable Unavailable AugustKerri MD Unavailable Unavailable AugustKerri MD Unavailable Unavailable AugustKerri MD Unavailable Unavailable AugustKerri MD Unavailable Unavailable AugustKerri MD Unavailable Unavailable AugustKerri MD Unavailable Unavailable AugustKerri MD Unavailable Unavailable AugustKerri MD Unavailable Unavailable AugustKerri MD Unavailable Unavailable AugustKerri MD Unavailable Unavailable AugustKerri MD Unavailable Unavailable AugustKerri MD Unavailable Unavailable AugustKerri MD Unavailable Unavailable AugustKerri MD Unavailable Unavailable AugustKerri MD Unavailable Unavailable AugustKerri MD Unavailable Unavailable AugustKerri MD Unavailable Unavailable AugustKerri MD Unavailable Unavailable AugustKerri MD Unavailable Unavailable AugustKerri MD Unavailable Unavailable AugustKerri MD Unavailable Unavailable AugustKerri MD Unavailable Unavailable AugustKerri MD Unavailable Unavailable AugustKerri MD Unavailable Unavailable AugustKerri MD Unavailable Unavailable AugustKerri MD Unavailable Unavailable AugustKerri MD Unavailable Unavailable Kerri Koch MD Unavailable Unavailable Cinthia LIU MD Unavailable Unavailable Cinthia LIU MD Unavailable Unavailable Cinthia LIU MD Unavailable Unavailable Cinthia LIU MD Unavailable Unavailable Cinthia LIU MD Unavailable Unavailable Cinthia LIU MD Unavailable Unavailable Cinthia LIU MD Unavailable Unavailable Cinthia LIU MD Unavailable Unavailable Cinthia LIU MD Unavailable Unavailable Cinthai LIU MD Unavailable Unavailable Cinthia LIU MD Unavailable Unavailable Cinthia LIU MD Unavailable Unavailable Cinthia LIU MD Unavailable Unavailable Cinthia LIU MD Unavailable Unavailable Cinthia LIU MD Unavailable Unavailable Cinthia LIU MD Unavailable Unavailable Cinthia LIU MD Unavailable Unavailable Cinthia LIU MD Unavailable Unavailable Cinthia LIU MD Unavailable Unavailable Cinthia LIU MD Unavailable Unavailable LIU, Cinthia WILD MD Unavailable Unavailable LIU, Cinthia WILD MD Unavailable Unavailable LIU, L TORRI VIGIL Unavailable Unavailable LIU, L TORRI VIGIL Unavailable Unavailable LIU, L TORRI VIGIL Unavailable Unavailable LIU, L TORRI VIGIL Unavailable Unavailable LIU, L TORRI VIGIL Unavailable Unavailable LIU, L TORRI VIGIL Unavailable Unavailable LIU, L TORRI VIGIL Unavailable Unavailable LIU, L TORRI VIGIL Unavailable Unavailable LIU, L TORRI VIGIL Unavailable Unavailable LIU, L TORRI VIGIL Unavailable Unavailable LIU, L TORRI VIGIL Unavailable Unavailable LIU, L TORRI VIGIL Unavailable Unavailable LIU, L TORRI VIGIL Unavailable Unavailable LIU, L TORRI VIGIL Unavailable Unavailable LIU, L TORRI VIGIL Unavailable Unavailable LIU, L TORRI VIGIL Unavailable Unavailable LIU, L TORRI VIGIL Unavailable Unavailable LIU, L TORRI VIGIL Unavailable Unavailable LIU, L TORRI VIGIL Unavailable Unavailable LIU, L TORRI VIGIL Unavailable Unavailable LIU, L TORRI VIGIL Unavailable Unavailable LIU, L TORRI VIGIL Unavailable Unavailable LIU, L TORRI VIGIL Unavailable Unavailable Fish, B Dewayne VIGIL Unavailable Unavailable Fish, B Dewayne VIGIL Unavailable Unavailable Fish, B Dewayne VIGIL Unavailable Unavailable Fish, B Dewayne VIGIL Unavailable Unavailable Fish, B Dewayne VIGIL Unavailable Unavailable Fish, B Dewayne VIGIL Unavailable Unavailable Fish, B Dewayne VIGIL Unavailable Unavailable Fish, B Dewayne VIGIL Unavailable Unavailable Fish, B Dewayne VIGIL Unavailable Unavailable Fish, B Dewayne VIGIL Unavailable Unavailable Fish, B Dewayne VIGIL Unavailable Unavailable Fish, B Dewayne VIGIL Unavailable Unavailable Fish, B Dewayne VIGIL Unavailable Unavailable Fish, B Dewayne VIGIL Unavailable Unavailable Fish, B Dewayne VIGIL Unavailable Unavailable Fish, B Dewayne VIGIL Unavailable Unavailable Fish, B Dewayne VIGIL Unavailable Unavailable Fish, B Dewayne VIGIL Unavailable Unavailable Fish, B Dewayne VIGIL Unavailable Unavailable Fish, B Dewayne VIGIL Unavailable Unavailable Fish, B Dewayne VIGIL Unavailable Unavailable Fish, B Dewayne VIGIL Unavailable Unavailable Fish, B Dewayne VIGIL Unavailable Unavailable Fish, B Dewayne VIGIL Unavailable Unavailable Fish, B Dewayne VIGIL Unavailable Unavailable Fish, B Dewayne VIGIL Unavailable Unavailable Fish, B Dewayne VIGIL Unavailable Unavailable Fish, B Dewayne VIGIL Unavailable Unavailable Fish, B Dewayne VIGIL Unavailable Unavailable Fish, B Dewayne VIGIL Unavailable Unavailable Fish, B Dewayne VIGIL Unavailable Unavailable Fish, B Dewayne VIGIL Unavailable Unavailable Fish, B Dewayne VIGIL Unavailable Unavailable Fish, B Dewayne VIGIL Unavailable Unavailable Fish, B Dewayne MD Unavailable Unavailable Fish, Bridget Buchanan MD Unavailable Unavailable Fish, Bridget Buchanan MD Unavailable Unavailable Fish, Bridget Buchanan MD Unavailable Unavailable Fish, Bridget Buchanan MD Unavailable Unavailable Fish, Bridget Buchanan MD Unavailable Unavailable Fish, Bridget Buchanan MD Unavailable Unavailable Fish, Bridget Buchanan MD Unavailable Unavailable Fish, Bridget Buchanan MD Unavailable Unavailable Fish, Bridget Buchanan MD Unavailable Unavailable Fish, Bridget Buchanan MD Unavailable Unavailable Fish, Bridget Buchanan MD Unavailable Unavailable Fish, Bridget Buchanan MD Unavailable Unavailable Fish, Bridget Buchanan MD Unavailable Unavailable Fish, Bridget Buchanan MD Unavailable Unavailable Fish, Bridget Buchanan MD Unavailable Unavailable Fish, Bridget Buchnaan MD Unavailable Unavailable Fish, Bridget Buchanan MD Unavailable Unavailable Fish, Bridget Buchanan MD Unavailable Unavailable Fish, Bridget Buchanan MD Unavailable Unavailable Fish, Bridget Buchanan MD Unavailable Unavailable Fish, Bridget Buchanan MD Unavailable Unavailable AstoriaGarima MD Unavailable Unavailable NatalieGarima MD Unavailable Unavailable AstoriaGarima MD Unavailable Unavailable NatalieGarima MD Unavailable Unavailable AstoriaGarima MD Unavailable Unavailable AstoriaGarima MD Unavailable Unavailable AstoriaGarima MD Unavailable Unavailable AstoriaGarima MD Unavailable Unavailable NatalieaGrima MD Unavailable Unavailable NatalieGarima MD Unavailable Unavailable AstoriaGarima MD Unavailable Unavailable NatalieGarima MD Unavailable Unavailable NatalieGarima MD Unavailable Unavailable AstoriaGarima MD Unavailable Unavailable NatalieGarima MD Unavailable Unavailable NatalieGarima MD Unavailable Unavailable AstoriaGarima MD Unavailable Unavailable AstoriaGarima MD Unavailable Unavailable NatalieGarima MD Unavailable Unavailable AstoriaGarima MD Unavailable Unavailable AstoriaGarima MD Unavailable Unavailable NatalieGarima MD Unavailable Unavailable Natalie F Amadeo VIGIL Unavailable Unavailable Astoria F Amadeo VIGIL Unavailable Unavailable Astoria F Amadeo VIGIL Unavailable Unavailable Astoria F Amadeo VIGIL Unavailable Unavailable Astoria F Amadeo VIGIL Unavailable Unavailable Natalie F Amadeo VIGIL Unavailable Unavailable AstoriaGarima MD Unavailable Unavailable NatalieGarima MD Unavailable Unavailable NatalieGarima MD Unavailable Unavailable AstoriaGarima MD Unavailable Unavailable AstoriaGarima MD Unavailable Unavailable AstoriaGarima MD Unavailable Unavailable Astoria F Amadeo VIGIL Unavailable Unavailable NatalieGarima MD Unavailable Unavailable Natalie, F Childs MD Unavailable Unavailable AstoriaGarima MD Unavailable Unavailable NatalieGarima MD Unavailable Unavailable AstoriaGarima MD Unavailable Unavailable Astoria, Garima Childs MD Unavailable Unavailable AstoriaGarima MD Unavailable Unavailable AstoriaGarima MD Unavailable Unavailable NatalieGarima MD Unavailable Unavailable AstoriaGarima MD Unavailable Unavailable NatalieGarima MD Unavailable Unavailable NatalieGarima MD Unavailable Unavailable NatalieGarima MD Unavailable Unavailable AstoriaGarima MD Unavailable Unavailable AstoriaGarima MD Unavailable Unavailable NatalieGarima MD Unavailable Unavailable NatalieGarima MD Unavailable Unavailable NatalieGarima MD Unavailable Unavailable NatalieGarima MD Unavailable Unavailable AstoriaGarima MD Unavailable Unavailable NatalieGarima MD Unavailable Unavailable AstoriaGarima MD Unavailable Unavailable NatalieGarima MD Unavailable Unavailable NatalieGarima MD Unavailable Unavailable AstoriaGarima MD Unavailable Unavailable NatalieGarima MD Unavailable Unavailable NatalieGarima MD Unavailable Unavailable AstoriaGarima MD Unavailable Unavailable NatalieGarima MD Unavailable Unavailable AstoriaGarima danielle MD Unavailable Unavailable NatalieGarima MD Unavailable Unavailable NatalieGarima MD Unavailable Unavailable NatalieGarima MD Unavailable Unavailable NatalieGarima MD Unavailable Unavailable NaatlieGarima danielle MD Unavailable Unavailable NatalieGarima danielle MD Unavailable Unavailable AstoriaGarima danielle MD Unavailable Unavailable AstoriaGarima danielle MD Unavailable Unavailable AstoriaGarima danielle MD Unavailable Unavailable NatalieGarima danielle MD Unavailable Unavailable NatalieGarima danielle MD Unavailable Unavailable NatalieGarima dnaielle MD Unavailable Unavailable AstoriaGarima danielle MD Unavailable Unavailable NatalieGarima danielle MD Unavailable Unavailable NatalieGarima MD Unavailable Unavailable AstoriaGarima MD Unavailable Unavailable AstoriaGarima MD Unavailable Unavailable AstoriaGarima MD Unavailable Unavailable NatalieGarima MD Unavailable Unavailable AstoriaGarima MD Unavailable Unavailable AstoriaGarima MD Unavailable Unavailable RING, K BO PA Unavailable Unavailable RING, K BO PA Unavailable Unavailable RING, K BO PA Unavailable Unavailable RING, K BO PA Unavailable Unavailable RING, K BO PA Unavailable Unavailable RING, K BO PA Unavailable Unavailable RING, K BO PA Unavailable Unavailable RING, K BO PA Unavailable Unavailable RING, K BO PA Unavailable Unavailable RING, K BO PA Unavailable Unavailable RING, K BO PA Unavailable Unavailable RING, K BO PA Unavailable Unavailable RING, K BO PA Unavailable Unavailable RING, K BO PA Unavailable Unavailable RING, K BO PA Unavailable Unavailable RING, K BO PA Unavailable Unavailable RING, K BO PA Unavailable Unavailable RING, K BO PA Unavailable Unavailable RING, K BO PA Unavailable Unavailable RING, K BO PA Unavailable Unavailable RING, K BO PA Unavailable Unavailable PARVIN, A EKRRI DO Unavailable Unavailable PARVIN, A KERRI DO Unavailable Unavailable PARVIN, A KERRI DO Unavailable Unavailable PARVIN, A KERRI DO Unavailable Unavailable PARVIN, A KERRI DO Unavailable Unavailable PARVIN, A KERRI DO Unavailable Unavailable PARVIN, A KERRI DO Unavailable Unavailable PARVIN, A KERRI DO Unavailable Unavailable PARVIN, A KERRI DO Unavailable Unavailable PARVIN, A KERRI DO Unavailable Unavailable PARVIN, A KERRI DO Unavailable Unavailable PARVIN, A KERRI DO Unavailable Unavailable PARVIN, A KERRI DO Unavailable Unavailable PARVIN, A KERRI DO Unavailable Unavailable PARVIN, A KERRI DO Unavailable Unavailable PARVIN, A KERRI DO Unavailable Unavailable PARVIN, A KERRI DO Unavailable Unavailable PARVIN, A KERRI DO Unavailable Unavailable PARVIN, A KERRI DO Unavailable Unavailable PARVIN, A KERRI DO Unavailable Unavailable PARVIN, A KERRI DO Unavailable Unavailable PARVIN, A KERRI DO Unavailable Unavailable HOSPITALIST Unavailable Unavailable Re-disclosure Warning The records that you are about to access may contain information from federally-assisted alcohol or drug abuse programs. If such information is present, then the following federally mandated warning applies: This information has been disclosed to you from records protected by federal confidentiality rules (42 CFR part 2). The federal rules prohibit you from making any further disclosure of this information unless further disclosure is expressly permitted by the written consent of the person to whom it pertains or as otherwise permitted by 42 CFR part 2. A general authorization for the release of medical or other information is NOT sufficient for this purpose. The Federal rules restrict any use of the information to criminally investigate or prosecute any alcohol or drug abuse patient.The records that you are about to access may contain highly sensitive health information, the redisclosure of which is protected by Article 27-F of the [facility] Public Health law. If you continue you may have access to information: Regarding HIV / AIDS; Provided by facilities licensed or operated by the [facility] Office of Mental Health; or Provided by the [facility] Office for People With Developmental Disabilities. If such information is present, then the following [facility] mandated warning applies: This information has been disclosed to you from confidential records which are protected by state law. State law prohibits you from making any further disclosure of this information without the specific written consent of the person to whom it pertains, or as otherwise permitted by law. Any unauthorized further disclosure in violation of state law may result in a fine or prison sentence or both. A general authorization for the release of medical or other information is NOT sufficient authorization for further disc losure. Allergies and Adverse Reactions Type Description Substance Reaction Status Data Source(s ) Drug allergy sitagliptin sitagliptin [facility] Drug [facility] Drug allergy pravastatin pravastatin [facility] Drug allergy hydrocodone hydrocodone ALTERED MENTAL STATUS [facility] Drug allergy iron iron RASH, DIZZINESS [facility] Allergy to substance No Known Allergies No known allergies (situation ) CLAVERACK (Dat Delgado MD [facility]) Drug Allergy Drug Allergy NKDA [facility] ([facility] Family History Family Member Name Family Member Gender Family Member Status Date o f Status Description Data Source(s) Unknown Unknown Problem [facility] ([facility]) mother Unknown Unknown Problem [facility] ([facility] [employer] [employer]) Unknown Male Problem [facility] ([facility]) Encounters Encounter Providers Location Date Indications Data Source(s ) Office Visit Attender: Dewayne Sen MD Physical Therapy 2020 01:30:00 PM EDT [facility] ([facility]) Outpatient Attender: BO Valadez 01/05/2021 11:45:00 AM EDT [facility] ([facility]) Office Visit Attender: Dewayne Sen MD Physical Therapy 2020 01:30:00 PM EDT [facility] ([facility] ) Outpatient Attender: HOSPITALISTAttender: Dewayne Sen MD ER -[facility]UR 12/07/2020 06:13:00 AM EDT - 12/08/2020 11:10:00 AM EDT [facility] ospital Patient discharged. Office Visit Attender: Heidi ESTEVEZ PA-C Physical Therapy 12/06/2020 10:00:00 AM EDT [facility] ([facility]) Outpatient Attender: Dewayne Sen MD ER-OPS 12/02/2020 08:30:00 AM EDT [facility] Outpatient Attender: Dewayne Sen MD ER-LAB 12/02/2020 05:02:00 AM EDT [facility] Outpatient Attender: Amadeo Crews 0 11/30/2020 01:30:00 PM EDT [facility] ([facility] ) Outpatient Attender: Dewayne Sen MD Physical Therapy 10/03/2020 0 3:30:00 PM EDT [facility] ([facility]) Outpatient Attender: Richard Koch MD [facility] 01:00:00 PM EDT [facility] ([facility] ) <td ID="encounterTypeDescriptionID0">1 Y ear Follow-Up</td><td>Kerri Glasgow DO</td><td>Dat Sharma MD [facility]</td><td>08/18/2020</td><td>9:38AM</td><td>10:33AM</td><td><content ID="encounterDiagnosisID0-0">Cataract Senile Nuclear</content>, <content ID="encounterDiagnosisID0-1">Dry Eye Syndrome</content>, <content ID="encounterDiagnosisID0-2">Vitreous Disorders Degeneration</content>, <content ID="encounterDiagnosisID0-3">Diabetes Mellitus Type 2 Without Complication</content>, <content ID="encounterDiagnosisID0-4">Taking Medication For Diabetes Long-term Use of Oral Hypoglycemics</content></td>Outpatient Attender: KERRI Cote MD [facility] 08/18/2020 09:38:00 AM EDT - 08/18/2020 10:33:00 AM EDT Taking Medication For Diabetes Long-term Use of Oral HypoglycemicsDiabetes Mellitus Type 2 Without ComplicationVitreous Disorders DegenerationDry Eye SyndromeCataract Senile Nuclear KIKA (Dat Delgado MD [facility]) Taking Medication For Diabetes Long-term Use of Oral Hypoglycemics Diabetes Mellitus Type 2 Without Complic ation Vitreous Disorders Degeneration Dry Eye Syndrome Cataract Senile Nuclear Outpatient Attender: Amadeo Crews 0 08/17/2020 09:40:00 AM EDT [facility] ([facility] ) Outpatient Attender: Dewayne Sen MD Physical Therapy 08/15/2020 0 2:15:00 PM EDT [facility] ([facility]) Outpatient Attender: Dewayne Sen MD Physical Therapy 07/08/2020 0 2:45:00 PM EST [facility] ([facility]) OFFICE OUTPATIENT VISIT 15 MINUTES Attender: RADHA Marmolejo-C Physical Therapy 06/27/2020 10:15:00 AM EST [facility] ([facility]) Office Visit Attender: Heidi ESTEVEZ PA-C Physical Therapy 05/19/2020 01:00:00 PM EST [facility] ([facility]) OFFICE OUTPATIENT VISIT 15 MINUTES Attender: RADHA Marmolejo-C Physical Therapy 04/25/2020 12:45:00 PM EST [facility] ([facility]) Office Visit Attender: RADHA Marmolejo-C Physical Therapy 03/31/2020 10:15:00 AM EST [facility] ([facility]) Outpatient Attender: RADHA Marmolejo-C Physical Therapy 03/01/2020 10:30:00 AM EST [facility] ([facility]) Outpatient Attender: TORRI Yepez Woman manager treasury 06/2019 08:30:00 AM EST [facility] ([facility]) Outpatient Attender: Amadeo Crews 1 09:40:00 AM EDT [facility] ([facility] ) Immunizations Vaccine Date Status Description Data Source(s) COVID-19 VACCINE Pfizer 02/07/2021 12:00:00 AM EDT completed [facility] Vaccine Series Complete: YESThis Data wa s Submitted to [facility] Via [employer]. COVID-19 VACCINE Pfizer 07/27/2020 12:00:00 AM EDT completed [facility] Vaccine Series Complete: YESThis Data wa s Submitted to [facility] Via [employer]. COVID-19 VACCINE Pfizer 07/06/2020 12:00:00 AM EST completed [facility] Vaccine Series Complete: NOThis Data was Submitted to [facility] Via [employer]. Medications Medication Brand Name Start Date Product Form Dose Route Admi nistrative Instructions Pharmacy Instructions Status Indications Reaction Description Data Source(s) Acetaminophen 325 MG / Hydrocodone Bitartrate 5 MG Ora l Tablet Hydrocodone Bitartrate/Acetaminophen 01/09/2021 12:00:00 AM EDT active [facility] ([facility] ) Amoxicillin 875 MG / Clavulanate 125 MG Oral Tablet Am oxicillin/Clavulanate Potassium 01/05/2021 12:00:00 AM EDT ORAL active [facility] ([facility]) Mupirocin 0.02 MG/MG Topical Ointment Mupirocin 11/03/2020 12:00:00 AM EDT completed [facility] ([facility]) rivaroxaban 10 MG Oral Tablet [Xarelto] Xarelto 11/03/2020 12:00:0 0 AM EDT ORAL active [facility] ([facility]) Oxycodone Hydrochloride 5 MG Oral Capsule Oxycodone HCL 11/03/2020 12:00:00 AM EDT ORAL completed [facility] ([facility] ) Clenpiq Clenpiq 09/22/2020 12:00:00 AM EDT active [facility] ([facility], ) Magnesium Hydroxide 80 MG/ML Oral Suspension Milk Of Magnesi a 09/22/2020 12:00:00 AM EDT ORAL active M EDENT ([facility], ) Metformin hydrochloride 500 MG Oral Tablet metFORMIN H Cl 500 MG Oral Tablet metFORMIN HCl 500 MG Oral Tablet 08/18/2020 12:00:00 AM EDT 1 active metformin hydrochloride 500 MG Oral Tablet KIKA (Abdelrahman Delgado MD [facility]) tizanidine 2 MG Oral Capsule Tizanidine HCL 03/01/2020 12:00:00 AM EST ORAL completed [facility] ([facility]) tizanidine 2 MG Oral Capsule Tizanidine HCL 03/01/2020 12:00:00 AM EST ORAL active [facility] ([facility]) Zolpidem tartrate 5 MG Oral Tablet Zolpidem Tartrate 02/19/2020 12:00:00 AM EDT ORAL active [facility] ( [facility]) tizanidine 2 MG Oral Tablet Tizanidine HCL 11/30/2019 12:00:00 AM EDT ORAL completed [facility] ([facility]) Insurance Providers Payer name Policy type / Coverage type Policy ID Covered constitution party ID Covered constitution party's relationship to chavez Policy Chavez Plan Information [facility] [employer] (HMO) [id number] Family Dependent [facility] [facility] [employer] (O) [id number] Family Dependent [id number] Preferred Care Medigap Part B [id number] Self [id number] Preferred Care Medigap Part B [id number] Self Cigna/MVP Con Gen/Prefcar Commercial [id number] Self [id number] [employer] Commercial [id number] Self [id number] Cigna/MVP Con Gen/Prefcar Commercial [id number] Self [employer] Commercial [id number] Self [facility] Trad/MX Commercial [id number] Self [id number] [facility] Trad/MX Commercial [id number] Self [employer] Commercial [id number] Self [employer] Commercial [id number] Self [id number] [employer] (pr) Commercial [id number] Self [id number] [employer] (pr) Commercial [id number] Self [id number] [employer] (pr) Commercial [id number] Self [id number] [employer] (pr) Commercial [id number] 0 Self [id number] [employer] (pr) Commercial [id number] Self [id number] [employer] (pr) Commercial [id number] 0 Self [id number] [employer] (pr) Commercial [id number] Self [id number] Umr [employer] Ppo Commercial [id number] Self [id number] [employer] PPO O [id number] S [id number] [employer] Commercial [id number] Self [id number] [employer] Commercial [id number] Self [id number] [employer] Ppo Commercial [id number] [facility] O [id number] S [id number] [employer] Ppo Commercial [id number] Self SELF PAY ONLY UNAVAILABLE SP UNAV AILABLE [facility] [id number] SP [id number] [facility] [id number] SP [id number] [facility] PHY [id number] SP [id number] [employer] OF [place] WAT[place] 306/806 [id number] SP [id number] UMR [facility] CARE [id number] SP [id number] UMR [id number] S [id number] [employer] [place] Other 0 [id number] Self 0 UMR O [id number] S [id number] UMR [facility] [id number] SP [id number] Umr (pr) Commercial [id number] Self [id number] Umr/Uhc/[employer] Health Maintenance Organization (HMO) [id number] Self [id number] Umr/Uhc[employer] Health Maintenance Organization (HMO) [id number] Self [id number] [facility] [id number] SP [id number] Umr (pr) Commercial [id number] Self [id number] Umr (pr) Commercial [id number] Self [id number] U[employer] (pr) Commercial [id number] Self [id number] UMR O [id number] S [id number] Umr Commercial [id number] Self [id number] UMR O [id number] S [id number] MARVIN CLAIM ADMIN WORK COMP [id number] SP [id number] Umr (pr) Commercial [id number] Self [id number] Umr (pr) Commercial [id number] Self [id number] [employer] [id number] SP [id number] Problems, Conditions, and Diagnoses Code Display Name Description Problem Type Effective Dates Data Source(s) Z87.891 Personal history of nicotine dependence PERSONAL HISTORY OF NICOTINE DEPENDENCE Diagnosis 12/07/2020 06:13:00 AM [facility] Z98.84 Bariatric surgery status BARIATRIC SURGERY STATUS Diag nosis 12/07/2020 06:13:00 AM [facility] Z79.84 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 Diagnosis 12/07/2020 06:13:00 AM EDT [facility] E11.42 Type 2 diabetes mellitus with diabetic p olyneuropathy TYPE 2 DIABETES MELLITUS WITH DIABETIC POLYNEUROPA Diagnosis 12/07/2020 06:13:00 AM ED [facility] I10 Essential (primary) hypertension ESSENTIAL (PRIMARY) H YPERTENSION Diagnosis 12/07/2020 06:13:00 AM [facility] Z96.642 Presence of left artificial hip joint OK ESENCE OF LEFT ARTIFICIAL HIP JOINT Diagnosis 12/07/2020 06:13:00 AM [facility] camelia M16.11 Unilateral primary osteoarthritis, right hip UNILATERAL PRIMARY OSTEOARTHRITIS, RIGHT Diagnosis 12/02/2020 01:28:00 PM T [facility] yaima Z01.818 Encounter for other preprocedural examin ation ENCOUNTER FOR OTHER PREPROCEDURAL EXAMINATION Diagnosis 12/02/2020 01:28:00 PM [facility] Z20.822 CONTACT WITH AND (SUSPECTED) EXPOSURE TO COVID-19 CONTACT WITH AND (SUSPECTED) EXPOSURE TO COVID-19 Diagnosis 12/02/2020 05:02:00 AM [facility] Z01.812 Encounter for preprocedural laboratory e xamination ENCOUNTER FOR PREPROCEDURAL LABORATORY EXAMINATION Diagnosis 12/02/2020 05:02:00 AM EDT [facility] [id number] Type 2 diabetes mellitus Type 2 diabetes mellitus Prob delfina 09/22/2020 12:00:00 AM EDT [facility] ([facility], ) M94.251 Chondromalacia Chondromalacia Problem 09/15/2020 12:00: 00 AM EDT [facility] ([facility]) [id number] Localized, primary osteoarthritis of the ankle and/or foot Localized, primary osteoarthritis of the ankle and/or foot Problem 2020 12:00:00 AM EDT [facility] ([facility]) Surgeries/Procedures Procedure Description Date Indications Data Source(s) X-Ray Hip Unilateral With Pelvis 2-3 Views 01/27/2021 12:00:00 AM EDT [facility] ([facility]) THERAPEUTIC PX 1/> AREAS EACH 15 MIN EXERCISES 12:00:00 AM EDT [facility] ([facility]) THERAPEUTIC PX 1/> AREAS EACH 15 MIN EXERCISES 12:00:00 AM EDT [facility] ([facility]) THERAPEUTIC PX 1/> AREAS EACH 15 MIN EXERCISES 12:00:00 AM EDT [facility] ([facility]) THERAPEUTIC PX 1/> AREAS EACH 15 MIN EXERCISES 12:00:00 AM EDT [facility] ([facility]) THERAPEUTIC PX 1/> AREAS EACH 15 MIN EXERCISES 12:00:00 AM EDT [facility] ([facility]) THERAPEUTIC PX 1/> AREAS EACH 15 MIN EXERCISES 021 12:00:00 AM EDT [facility] ([facility]) OFFICE OUTPATIENT VISIT 15 MINUTES 01/05/2021 12:00:00 AM EDT [facility] ([facility]) Physical Therapy Eval - Low Complexity 12/26/2020 12:0 0:00 AM EDT [facility] ([facility]) ARTHRP ACETBLR/PROX FEM PROSTC AGRFT/ALGRFT 12/07/2020 12:00:00 AM EDT [facility] ([facility]) OFFICE OUTPATIENT VISIT 25 MINUTES 11/30/2020 12:00:00 AM EDT [facility] ([facility]) RADIOLOGIC EXAMINATION PELVIS 1/2 VIEWS 10/03/2020 12: 00:00 AM EDT [facility] ([facility] OFFICE OUTPATIENT VISIT 40 MINUTES 10/03/2020 12:00:00 AM EDT [facility] ([facility] ) Surgical / procedural history Gastric B ypass 2009, Left Total Hip Replacement 09/2019, Right Hip Injections Surgical / procedural history Gastric B ypass 2009, Left Total Hip Replacement 09/2019, Right Hip Injections 08/18/2020 12:00:00 AM EDT KIKA (Dat Delgado MD [facility]) Intermediate Eye Exam Established Patient Intermediate Eye Exam Established Patient 08/18/2020 12:00:00 AM EDT KIKA (Mikhail Delgado MD [facility]) OFFICE OUTPATIENT VISIT 25 MINUTES 08/17/2020 12:00:00 AM EDT [facility] ([facility]) X-Ray Hip Unilateral With Pelvis 2-3 Views 08/15/2020 12:00:00 AM EDT [facility] ([facility] ) OFFICE OUTPATIENT VISIT 25 MINUTES 08/15/2020 12:00:00 AM EDT [facility] ([facility] ) ARTHROCENTESIS ASPIR&/INJECTION MAJOR JT/BURSA 021 12:00:00 AM EST [facility] ([facility] ) OFFICE OUTPATIENT VISIT 25 MINUTES 07/08/2020 12:00:00 AM EST [facility] ([facility] ) OFFICE OUTPATIENT VISIT 15 MINUTES 06/27/2020 12:00:00 AM EST [facility] ([facility] ) PHYSICIAN TELEPHONE EVALUATION 11-20 MIN 05/19/2020 12 :00:00 AM EST [facility] ([facility] ) X-Ray Hip Unilateral With Pelvis 2-3 Views 04/25/2020 12:00:00 AM EST [facility] ([facility] ) OFFICE OUTPATIENT VISIT 15 MINUTES 04/25/2020 12:00:00 AM EST [facility] ([facility] ) ARTHROCENTESIS ASPIR&/INJECTION MAJOR JT/BURSA 020 12:00:00 AM EST [facility] ([facility] ) X-Ray Hip Unilateral With Pelvis 2-3 Views 03/01/2020 12:00:00 AM EST [facility] ([facility]) Results ID Date Data Source [id number] 01/05/2021 12:00:00 AM EDT [facility] Name Value Range Interpretation Code Description Data Donna rce(s) Supporting Document(s) SARS-CoV2 Rapid Antigen Negative [facility] This lab was reported by Caleb Stevens. ID Date Data Source [id number] 12/08/2020 10:25:00 AM EDT [facility] [place], [place] [address]TVKUPIIOO SUMMARYPATIENT NAME: JABARI GONZALES MR#: [id number] PHYSICIAN: HOSPITALISTAUTHOR: Madi Leblanc MD DATE: RM#: ASURDISCHARGE DATE: 12/08/20 : 56Summary of HospitalizationReason for AdmissionS/p R total hip replacement arthroplastyHospital Gxzmau60 yo F who presents to the hospital for definitive management of her R hiparthritis. Pt underwent a R total hip replacement arthroplasty. Pain wasmanaged with tylenol, IV morphine, PO percocet. HTN was managed with wcpvitgmsd20 mg PO daily. Pt was on xarelto 10 mg PO daily for DVT prophylaxis. Pt wascleared for safe discharge home on 12/08/2020 by PT/OT. I did call the pt'spharmacy and the orthopedic surgeon did send scripts for pain medicine andxarelto. Pt should ensure she picks those medications up and takes them as perthe orthopedic surgeons directions.Procedures & Relevant StudiesStudiesJET, [place] [address]OFMZGEHYSC CONSULTATIONDate of : 1955 Name: JABARI GONZALES AMedrec Number: [id number] Phys: DEWAYNE SEN M.D.Exam Date: 12/07/2020 Location: 2EASTProcedure: HIPC, HIP/PELVIS UNI 2-3VIEW Rad Numb: [id number] \\EXAM# TYPE/EXAM [id number] DX/HIP/PELVIS UNI 2-3VIEWDATE OF EXAMINATION: 12/07/2020 9:45 EDTHISTORY: Hip prosthesisTECHNIQUE: 2 views of the right hip were obtained.FINDINGS:Total hip prosthesis is in place. Postoperative soft tissue emphysemaand lateral skin dalia are noted.IMPRESSION:Total hip prosthesis.Electronically signed in PS360 by: Andre Goldman M.D. 110:11 EDT Reported By: Rocky GOLDMAN M.D.OUR RADIOLOGY DEPARTMENT IS ACCREDITED BY THE [employer] IN THE FOLLOWING MODALITIES:CT, MRI, NUCLEAR MEDICINE, PET/CT,MAMMOGRAPHY/STEREOTACTIC BIOPSY, & ULTRASOUNDCC: DEWAYNE SEN M.D.; AMADEO NORMAN MDProcedure Start: 12/07/20 (1011) Procedure Complete: 12/07/20 (1011)Technologist: Tran SOSA(Molly)(CT)Transcribed Date/Time: 12/07/2020 (1023)Mandrel Cleaner: NESHA.XPrinted Date/Time: 12/08/2020 (1031)PAGE 1 Signed Report Printed From PCIDiagnoses (Current Visit)Problem List1. Hip replacement planned2. Diabetes3. HTN (hypertension)Diagnoses (Other)Past Pertinent History1. Hip replacement planned2. Diabetes3. HTN (hypertension)Patient's Discharge ConditionVital SignsVital Signs-LastResult Date TimeB/P 112/65 12/08 1026Pulse Ox 98 12/08 1018Temp 98.6 12/08 1018Pulse 98 12/08 1018Resp 15 12/08 1018Patient's Discharge ConditionDischarge Date 12/08/20Discharge Conditon fairDischarge DispositionHOMEPhysical ExaminationGeneral Appearance no acute distress, afebrile, alert, awake, conversantCardiovascular regular rate, normal heart soundsRespiratory clear to auscultation, no distress, aerating wellAbdomen soft, non-tenderUrinary no flank painExtremities no edemaMuscoskeletal full range of motion, normal inspectionNeurological alert, oriented x 3Lymphatic neck normalPsych/Mental Status mood neutralPatient/Family InstructionsPrescriptionsContinue taking these medications:METFORMIN HCL (METFORMIN) 500 MG TAB.ER.31962 MILLIGRAM Orally TWICE DAILYBenazepril HCl (Benazepril HCl) 20 MG [id number] MILLIGRAM Orally DAILYGABAPENTIN* (Neurontin*) 300 MG OFEZYSA134 MILLIGRAM Orally DAILYFERROUS SULFATE (IRON*) 325 MG TABLET.DR325 MILLIGRAM Orally As directedOmeprazole (Omeprazole) 20 MG TABLET.DR20 MILLIGRAM Orally DAILYMultivitamin (Multivitamin) 1 EACH TABLET1 Orally DAILYCYANOCOBALAMIN (VITAMIN B-12) (Vitamin B-12) 1,000 MCG TABLET.ER1,000 MICROGRAM Orally DAILYBiotin (Biotin) 5,000 MCG TAB.RAPDIS5,000 MICROGRAM Orally DAILY[vit d]1,000 INTERNATIONAL UNIT Orally DAILYAspirin (Ecotrin) 81 MG TABLET.DR81 MILLIGRAM OrallyTime spent by provider to complete discharge > 30 minutesDATE SIGNED: 12/08/20 Electronically SignedTIME SIGNED: 1909 MADI LEBLANC MD Name Value Range Interpretation Code Description Data Donna rce(s) Supporting Document(s) ID Date Data Source [id number] 12/08/2020 09:18:00 AM EDT [address] [address]LKSPH PROGRESS NOTEPATIENT NAME: JABARI GONZALES PHYSICIAN: HOSPITALISTAUTHOR: Mckinley VIGIL,Renan. DATE: MR#: [id number] NOTE DATE: 12/08/20 RM#: [id number] TIME: 918 : 56SubjectiveEvents Since Last EntryPatient seen and examined. She is doing very well. She is quite comfortable.She is up and out of bed. No issues with the dressing. She has no calftenderness neurovascular intact. Postoperati ve x-rays reviewed yesterday showa well-seated prosthesis in good position.Labs are reviewed and overall seem to be in acceptable ranges.The plan will be to discharge the patient home when okay with the hospitalist.Follow-up in 10 to 14 days sooner if problems.Assessment/PlanResuscitation status Full codeDATE SIGNED: 12/08/20 Electronically SignedTIME SIGNED: 09 DEWAYNE SEN Name Value Range Interpretation Code Description Data Donna rce(s) Supporting Document(s) ID Date Data Source [id number] 12/08/2020 06:45:00 AM EDT [facility] ([facility]) Name Value Range Interpretation Code Description Data Donna rce(s) Supporting Document(s) Glucose [Mass/volume] in Capillary blood by Glucometer 138 mg/dL 70- 110 [facility] ID Date Data Source [id number] 12/08/2020 04:43:00 PM EDT [facility] Name Value Range Interpretation Code Description Data Donna rce(s) Supporting Document(s) FGLU 138 mg/dL 70-110 [facility] ID Date Data Source [id number] 12/08/2020 04:18:00 AM EDT [facility] ([facility]) Name Value Range Interpretation Code Description Data Donna rce(s) Supporting Document(s) Glucose [Mass/volume] in Serum or Plasma 127 mg/dL 70-110 [facility] ([facility]) Patients taking Sulfasalazine may have f alsely depressed Glucose levels. Patients taking Sulfapyridine may have falsely elevated Glucose levels. Patients should be drawn for Glucose before the initial administration of either drug. Urea nitrogen [Mass/volume] in Serum or Plasma 17 mg/dL 7-23 [facility] ([facility]) Glomerular filtration rate/1.73 sq M.pre dicted [Volume Rate/Area] in Serum or Plasma by Creatinine-based formula (MDRD) Laboratory test result [facility] ([facility]) Creatinine [Mass/volume] in Serum or Plasma 0.665 mg/dL 0.500-1.300 [facility] ([facility]) Chloride [Moles/volume] in Serum or Plasma 109 mmol/L 99-110 [facility] ([facility]) Bicarbonate [Moles/volume] in Blood 27 mmol/L 20-33 [facility] ([facility]) Sodium [Moles/volume] in Serum or Plasma 143 mmol/L 136-147 [facility] ([facility]) Potassium [Moles/volume] in Serum or Plasma 4.7 mmol/L 3.5-5.1 [facility] ([facility]) Anion gap in Serum or Plasma 11.7 10.0-20.0 [facility] ([facility] ) CA 8.3 mg/dL 8.3-10.7 [facility] ([facility] ) Alkaline phosphatase [Enzymatic activity/volume] in Serum or Plasma 47 U/L 45-117 [facility] ) Protein [Mass/volume] in Serum or Plasma 5.9 g/dL 6.0-7.8 [facility] ([facility]) Globulin [Mass/volume] in Serum by calculation 3.1 g/dL 2.3-3.5 [facility] ([facility]) Albumin [Mass/volume] in Serum or Plasma 2.8 g/dL 3.5-5.0 [facility] ([facility]) ESRD Dialysis patient Albumin reference range: 2.9-4.4 g/dL Albumin/Globulin [Mass Ratio] in Serum or Plasma 0.9 1.0-2.5 [facility] ([facility]) Alanine aminotransferase [Enzymatic activity/volume] in Seru m or Plasma 36 U/L 6-54 [facility] ([facility]) Patients taking Sulfasalazine and/or Sul fapyridine may have falsely depressed ALT levels. Patients should be drawn for ALT before the initial administration of either drug. Bilirubin.total [Mass/volume] in Serum or Plasma 0.4 mg/dL 0.1-1.1 [facility] ([facility] ) The Dimension Coello Total Bilirubin is n ot recommended for patients undergoing treatment with eltrombopag (Promacta) due to the potential for falsely elevated results. Aspartate aminotransferase [Enzymatic activity/volume] in Serum or Plasma 45 U/L 6-38 [facility] Patients taking Sulfasalazine and/or Sul fapyridine may have falsely depressed AST levels. Patients should be drawn for AST before the initial administration of either drug. ID Date Data Source [id number] 12/08/2020 04:18:00 AM EDT [facility] ([facility]) Name Value Range Interpretation Code Description Data Donna rce(s) Supporting Document(s) Urea nitrogen [Mass/volume] in Serum or Plasma 17 mg/dL 7-23 [facility] ([facility]) Glucose [Mass/volume] in Serum or Plasma 127 mg/dL 70-110 [facility] ([facility]) Patients taking Sulfasalazine may have f alsely depressed Glucose levels. Patients taking Sulfapyridine may have falsely elevated Glucose levels. Patients should be drawn for Glucose before the initial administration of either drug. Glomerular filtration rate/1.73 sq M.pre dicted [Volume Rate/Area] in Serum or Plasma by Creatinine-based formula (MDRD) Laboratory test result [facility] ([facility]) Creatinine [Mass/volume] in Serum or Plasma 0.665 mg/dL 0.500-1.300 [facility] ([facility]) Sodium [Moles/volume] in Serum or Plasma 143 mmol/L 136-147 [facility] ([facility]) Chloride [Moles/volume] in Serum or Plasma 109 mmol/L 99-110 [facility] ([facility]) Potassium [Moles/volume] in Serum or Plasma 4.7 mmol/L 3.5-5.1 [facility] ([facility]) Calcium [Mass/volume] in Serum or Plasma 8.3 mg/dL 8.3-10.7 [facility] ([facility]) Anion gap in Serum or Plasma 11.7 10.0-20.0 M EDENT ([facility]) Bicarbonate [Moles/volume] in Blood 27 mmol/L 20-33 [facility] ([facility]) Alkaline phosphatase [Enzymatic activity/volume] in Serum or Plasma 47 U/L 45-117 [facility] ([facility]) Protein [Mass/volume] in Serum or Plasma 5.9 g/dL 6.0-7.8 [facility] ([facility]) Albumin [Mass/volume] in Serum or Plasma 2.8 g/dL 3.5-5.0 [facility] ([facility]) ESRD Dialysis patient Albumin reference range: 2.9-4.4 g/dL Globulin [Mass/volume] in Serum by calculation 3.1 g/dL 2.3-3.5 [facility] ([facility]) Alanine aminotransferase [Enzymatic activity/volume] in Seru m or Plasma 36 U/L 6-54 [facility] ([facility]) Patients taking Sulfasalazine and/or Sul fapyridine may have falsely depressed ALT levels. Patients should be drawn for ALT before the initial administration of either drug. Bilirubin.total [Mass/volume] in Serum or Plasma 0.4 mg/dL 0.1-1.1 [facility] ([facility]) The Dimension Coello Total Bilirubin is n ot recommended for patients undergoing treatment with eltrombopag (Promacta) due to the potential for falsely elevated results. Albumin/Globulin [Mass Ratio] in Serum or Plasma 0.9 1.0-2.5 [facility] ([facility]) Aspartate aminotransferase [Enzymatic activity/volume] in Serum or Plasma 45 U/L 6-38 [facility] ([facility] ) Patients taking Sulfasalazine and/or Sul fapyridine may have falsely depressed AST levels. Patients should be drawn for AST before the initial administration of either drug. ID Date Data Source [id number] 12/08/2020 05:19:00 [facility] Name Value Range Interpretation Code Description Data Donna rce(s) Supporting Document(s) GLU 127 mg/dL 70-110 [facility] Patients taking Sulfasalazine may have f alsely depressedGlucose levels. Patients taking Sulfapyridine may havefalsely elevated Glucose levels. Patients should be drawnfor Glucose before the initial administration of eitherdrug. BUN 17 mg/dL 7-23 [facility] CRE 0.665 mg/dL 0.500-1.300 [facility] GFR > 60 mL/min [facility] CHLORIDE 109 mmol/L 99-110 [facility] NA 143 mmol/L 136-147 [facility] POTASSIUM 4.7 mmol/L 3.5-5.1 [facility] TCO2 27 mmol/L 20-33 [facility] ANION GAP 11.7 10.0-20.0 [facility] CA 8.3 mg/dL 8.3-10.7 [facility] ALKALINE PHOS 47 U/L 45-117 [facility] TP 5.9 g/dL 6.0-7.8 [facility] ALB 2.8 g/dL 3.5-5.0 [facility] ESRD Dialysis patient Albumin reference range: 2.9-4.4 g/dL GL 3.1 g/dL 2.3-3.5 [facility] A/G 0.9 1.0-2.5 [facility] T. BILIRUBIN 0.4 mg/dL 0.1-1.1 [facility] The Dimension Coello Total Bilirubin is n ot recommended forpatients undergoing treatment with eltrombopag (Promacta)due to the potential for falsely elevated results. ALTI 36 U/L 6-54 [facility] Patients taking Sulfasalazine and/or Sul fapyridine may havefalsely depressed ALT levels. Patients should be drawn forALT before the initial administration of either drug. AST 45 U/L 6-38 [facility] Patients taking Sulfasalazine and/or Sul fapyridine may havefalsely depressed AST levels. Patients should be drawn forAST before the initial administration of either drug. ID Date Data Source [id number] 12/07/2020 09:13:00 PM EDT [facility] ([facility]) Name Value Range Interpretation Code Description Data Donna rce(s) Supporting Document(s) Glucose [Mass/volume] in Capillary blood by Glucometer 293 mg/dL 70- 110 [facility] ([facility]) ID Date Data Source [id number] 12/07/2020 09:16:00 PM EDT [facility] Name Value Range Interpretation Code Description Data Donna rce(s) Supporting Document(s) FGLU 293 mg/dL 70-110 [facility] ID Date Data Source [id number] 12/07/2020 04:37:00 PM EDT [facility] ([facility]) Name Value Range Interpretation Code Description Data Donna rce(s) Supporting Document(s) Glucose [Mass/volume] in Capillary blood by Glucometer 293 mg/dL 70- 110 [facility] ([facility]) ID Date Data Source [id number] 12/07/2020 10:18:00 PM EDT [facility] Name Value Range Interpretation Code Description Data Donna rce(s) Supporting Document(s) FGLU 293 mg/dL 70-110 [facility] ID Date Data Source [id number] 12/07/2020 04:12:00 PM EDT [facility] [place], [place] [address]XWANKWT REPORTPATIENT NAME: JABARI GONZALES MR#: [id number] PHYSICIAN: HOSPITALISTCONSULTING PHYSICIAN: Madi Leblanc MD DATE: 12/07/20 RM#: [id number] DATE: 12/07/20 : 56EVALUATION TIME: 1647HistoryReason for consultS/p Right total hip replacement arthroplastyRequested byOrthopedic surgeonChief Complaint/Admit ReasonR hip painHistory of Presenting Vkazmhc1 yo F who presents to the hospital for definitive management of her R hiparthritis. Pt reports that for the past 9 months she has been dealing with Rhip pain. She describes the pain as an annoyance. Pt was able to stillcomplete her ADL's. She did have some steroid injections in the past but statesthat they only worked for approx 1 week. Pt underwent a R total hipreplacement arthroplasty.Past Medical/Surgical HistoryPast Medical/Surgical HistoryMedical ProblemsDiabetesHip replacement plannedHTN (hypertension)AllergiesCoded Allergies:ezetimibe (From ZETIA) (12/02/20)hydrocodone (ALTERED MENTAL STATUS 12/02/20)iron (RASH, DIZZINESS 12/02/20)ALSO IRON INFUSIONpravastatin (From PRAVACHOL) (12/02/20)sitagliptin (From JANUVIA) (12/02/20)Family history Mother age 74 from CHF. Father age 63 from unknowncancerSocial History Denies smoking/alcohol/recreational drug useReview of SystemsConstitutionalReports: Pain. Denies: Fever, Chills.SkinDenies: abrasion, bruising.EyesDenies: redness, discharge.RespiratoryDenies: dyspnea, shortness of breath, w heezing.CardiovascularDenies: chest pain, palpitations.GastrointestinalDenies: nausea, vomiting.GenitorurinaryDenies: flank pain.MusculoskeletalReports: joint pain, joint swelling.HematologyDenies: bleeding, bruising.EndocrineReports: diabetic.NeurologicalDenies: confusion, dizziness.PsychDenies: agitation, anxiety.ExamPhysical ExaminationGeneral Appearance no acute distress, alert, awake, conversantCardiovascular regular rate, normal heart soundsRespiratory clear to auscultation, no distress, aerating wellAbdomen soft, non-tenderUrinary no flank painExtremities no edemaMuscoskeletal full range of motion, normal inspectionNeurological alert, oriented x 3Skin AssessmentSkin dry, intactLymphatic neck normalPsych/Mental Status mood neutralData ReviewJamestown, [place] [address]YJWHFHHWNS CONSULTATIONDate of : 1955 Name: JABARI GONZALES AMefrainrec Number: [id number] Phys: DEWAYNE SEN M.D.Exam Date: 12/07/2020 Location: 2EASTProcedure: HIPC, HIP/PELVIS UNI 2-3VIEW Rad Numb: [id number] \\EXAM# TYPE/EXAM [id number] DX/HIP/PELVIS UNI 2-3VIEWDATE OF EXAMINATION: 12/07/2020 9:45 EDTHISTORY: Hip prosthesisTECHNIQUE: 2 views of the right hip were obtained.FINDINGS:Total hip prosthesis is in place. Postoperative soft tissue emphysemaand lateral skin dalia are noted.IMPRESSION:Total hip prosthesis.Electronically signed in PS360 by: Andre Goldman M.D. 110:11 EDT Reported By: Rocky GOLDMAN M.D.OUR RADIOLOGY DEPARTMENT IS ACCREDITED BY THE [employer] COLLE[employer]OF RADI[employer] IN THE FOLLOWING MODALITIES:CT, MRI, NUCLEAR MEDICINE, PET/CT,MAMMOGRAPHY/STEREOTACTIC BIOPSY, & ULTRASOUNDCC: DEWAYNE SEN M.D.; AMADEO NORMAN MDProcedure Start: 12/07/20 (1011) Procedure Complete: 12/07/20 (1011)Technologist: Tran SOSA(Molly)(CT)Transcribed Date/Time: 12/07/2020 (1023)Mandrel Cleaner: XPrinted Date/Time: 12/07/2020 (1595)PAGE 1 Signed Report Printed From PCIAssessment/PlanDiagnosis/Problem1. Hip replacement plannedA&P- Tylenol PRN- IV morphine PRN- PO percocet PRN- PO tramadol 50 mg q6 hr PRN- Xarelto 10 mg PO daily2. DiabetesA&P- Fingerstick ACHS- Novolog ACHS3. HTN (hypertension)A&P- Lisinopril 20 mg PO dailyAdditional NotesDVT prophylaxis: Xarelto as abov eResuscitation status Full codeDATE SIGNED: 12/07/20 Electronically SignedTIME SIGNED: 1918 MADI LEBLANC MD Name Value Range Interpretation Code Description Data Donna rce(s) Supporting Document(s) ID Date Data Source [id number] 12/07/2020 10:23:00 AM EDT [facility] Exam Number: [id number] OF EXAMINATIO N: 12/07/2020 9:45 EDTHISTORY: Hip prosthesisTECHNIQUE: 2 views of the right hip were obtained.FINDINGS:Total hip prosthesis is in place. Postoperative soft tissue emphysemaand lateral skin dalia are noted.IMPRESSION:Total hip prosthesis.Electronically signed in PS360 by: Andre Goldman M.D. 110:11 EDT Reported By: Juli GOLDMAN M.D. Signed By: Rocky GOLDMAN M.D. Name Value Range Interpretation Code Description Data Donna rce(s) Supporting Document(s) ID Date Data Source [id number] 12/07/2020 09:46:00 AM EDT [facility] [address] [id number] OPERATIVE REPORTPATIENT NAME: JABARI GONZALES MR#: [id number] PHYSICIAN: DEWAYNE SEWELL: Dewayne Sen MD DATE: RM#: [id number] DATE: PATIENT : 57Operative ReportOperative ReportOPERATION: Right total hip replacement arthroplasty.Date of surgery 1PREOPERATIVE DIAGNOSIS: Right hip osteoarthritisPOSTOPERATIVE DIAGNOSIS: Same.Surgeon: Dr. Dewayne Prajapati Blue Leather Setter: Apolinar MonrealhommeAnesthesia: SpinalEBL: EBL approximately 100 cc.PROCEDURE: Patient was seen in the preoperative area and consented. Patientwas made aware of the nature of the procedure and the risks of bleedinginfection damage to nerves or vessels persistent pain wear looseningdislocation leg length inequality blood clots medical problems amongothers.Patient was taken to the operating room placed in the left lateral decubitusposition after anesthesia was introduced. The Darrian positioner was used.All areas were padded appropriately. The right hip was prepped and draped. Atimeout was performed, a longitudinal incision was made over the lateral aspectof the hip and sharp dissection was carried out down through the subcutaneoustissue. The fascia was incised with the cautery. I then divided the ramiexyp26% of the abductor off the anterior aspect of the hip exposing the femoralneck and proximal femur. We dislocated the hip. I then used the canalinitiating reamer on the femur followed by the canal finding reamer of thelateralizing reamer and then sequentially reamed up to a size seven which hadgood purchase. The neck cut was made about three quarters of a fingerbre adthup from the lesser trochanter. We then directed our attention to theacetabulum. Anterior and posterior retractors were placed. The soft tissuewas cleaned out from around the acetabulum. I then sequentially reamed andmedialized to some degree with the acetabular reamers and reamed up to a sizefifty-one. We had excellent concentric reaming and bleeding bone. Weirrigated copiously. I then impacted in a size fifty-two acetabular componentin the appropriate amount of anteversion and horizontal tilt. We made sure itwas well seated and down to the floor. The apex classroom technology technician was placed. Damián placed a 52 x 36 acetabular liner impacted this in place to make sure itwas well seated. We had irrigated several times along the way.We then directed our attention back to the femur where I sequentially broachedup to a size seven which had a good purchase and good fill. We templated offof the stem with various different head and neck combinations and selected astandard offset size seven stem and a +1.5 neck length on the thirty-six ball.Multiple trials for shuck and flexion internal rotation extension externalrotation were performed and we felt that the +1.5 standard offset had the moststable co nfiguration. Due to the patient's leg length inequality I deliberatelytried to lengthen this hip by using a size 7 stem standard offset and I left diaz little bit proud above the cut. I was hoping to gain some length on thisright side. The soft tissue tension was appropriate. We then remove the trialcomponents irrigated copiously placed the actual size seven standard offsetstem impacted it in place. It was well-seated there were no fractures noted.We dried the Blount taper and impacted on the +1.5 thirty-six ball and thenreduce the hip and put the hip through range of motion. Excellent stabilityand soft tissue tension was noted there was no instability with flexioninternal rotation and extension external rotation. We had previously removed alarge anterior osteophyte. At this point the combination of Marcaine andExparel was injected into the soft tissues around the hip. We again copiouslyirrigated and placed the TXA deep in the wound. I then repaired the minimuswith #1 Vicryl suture and the abductor with #1 Vicryl suture with some stitchesbeing placed through the bone. I repaired the fascia with #1 Vicryl suture inrunning strata fix suture in both directions. We again irrigated closed thesubcutaneous layer with 2-0 Vicryl and the skin with dalia. Sterile dressingwas applied and he was taken to recovery room in stable condition there were noknown complications.The casino assistant manager was instrumental in holding retractors and assisting in reducingand dislocating the hip and assisting in wound closure.Copy to Dr. Dewayne Thayer to Family Provider AMADEO NORMAN MDDATE SIGNED: 12/07/20 Electronically SignedTIME SIGNED: 949 DEWAYNE Alves Value Range Interpretation Code Description Data Donna rce(s) Supporting Document(s) ID Date Data Source [id number] 12/07/2020 09:45:00 AM EDT [facility] [address]KRDDQIG NAME: JABARI GONZALES#: [id number] PHYSICIAN: DEWAYNE SENACCOUNT #: [id number] ADM. DATE:PATIENT : 57 DISCH. DATE: [50}DISCHARGE SUMMARYNCOG Orth[facility] DC InstructionsFollow Up CareFollow Up:Follow up appointment with [facility] ([phone]) shouldbe arranged within 14 days of surgery date (or close to this date).Priority ItemsUrgent/Important items that need to be addressed at primary care follow-upappointmentDischarge InformationDISCHARGE INFORMATION* Thank you for choosing [facility] and allowing us toserve you* Our Goal is to provide the highest quality of care.* This discharge information is to help you better understand your diagnosisand medication* Avoid taking lzjj-adn-qtudbun medicines unless approved by your physician.* Take your medications as prescribed. DO NOT stop any medications unlessapproved first* Weigh yourself daily. Report any gain of 5 lbs in a week* 24 Hour Crisis HOTLINE available: Call [employer] at [phone] SMOKING CESSATION* Smoking is dangerous to your health. It delays the healing process, andworks against your medications. Not smoking will improve your health* Our hospital participates with the Opt-to-Quit program. You will be contactedafter discharge by the [facility] Smoker's Quitline for support with tobaccocessation. You have the option once contacted to refuse this service.* You can also go online to www.[email or web address]. Free nicotine replacementsare available ___Attention* You should contact your follow up Physician as it is important that you lethim or her check you and report any new or remaining problems. If yourcondition worsens, follow up with your provider or visit our EmergencyDepartment. If you received pain medication, anxiety medications, musclerelaxants, or any medication that causes drowsiness, you cannot operatemachinery, power tools, or drive.[facility] ENDDICT: 12/07/20944 Electronically SignedTRANS:12/07/20944 DEWAYNE Bustos M.D. FISHTRANS BY:DATE SIGNED:12/07/20TIME SIGNED: 09REPORT COPY TO: Name Value Range Interpretation Code Description Data Donna rce(s) Supporting Document(s) ID Date Data Source [id number] 12/07/2020 06:59:00 AM EDT [facility] ([facility]) Name Value Range Interpretation Code Description Data Donna rce(s) Supporting Document(s) Glucose [Mass/volume] in Capillary blood by Glucometer 159 mg/dL 70- 110 [facility] ID Date Data Source [id number] 12/07/2020 06:59:00 AM EDT [facility] ([facility]) Name Value Range Interpretation Code Description Data Donna rce(s) Supporting Document(s) Glucose [Mass/volume] in Capillary blood by Glucometer 159 mg/dL 70- 110 [facility] ([facility]) ID Date Data Source [id number] 12/07/2020 07:03:00 AM EDT [facility] Name Value Range Interpretation Code Description Data Donna rce(s) Supporting Document(s) FGLU 159 mg/dL 70-110 [facility] ID Date Data Source [id number] 12/02/2020 10:10:00 AM EDT [facility] ([facility]) Name Value Range Interpretation Code Description Data Donna rce(s) Supporting Document(s) Blood Type Laboratory test result [facility] ([facility]) Antibody Screen Laboratory test result [facility] ([facility]) ID Date Data Source [id number] 12/02/2020 10:10:00 AM EDT [facility] ([facility]) Name Value Range Interpretation Code Description Data Donna rce(s) Supporting Document(s) Blood Type Laboratory test result [facility] ([facility]) Laboratory test finding (navigational concept) Laboratory test result [facility] ([facility]) ID Date Data Source [id number] 12/02/2020 12:09:00 PM EDT [facility] Have you ever had a blood transfusion? N Have you had a blood transfusion within the last 3 months? NAre you ? NWhen is the date of your surgery? 12/07/20 Name Value Range Interpretation Code Description Data Donna rce(s) Supporting Document(s) BLOOD TYPE B POSITIVE [facility] ANTIBODY SCREEN NEGATIVE [facility] Date Data Source [id number] 12/02/2020 10:09:00 AM EDT [facility] ([facility]) Name Value Range Interpretation Code Description Data Donna rce(s) Supporting Document(s) Laboratory test finding (navigational concept) Laboratory test result [facility] ([facility] ) ID Date Data Source [id number] 12/02/2020 10:09:00 AM EDT [facility] ([facility]) Name Value Range Interpretation Code Description Data Donna rce(s) Supporting Document(s) Laboratory test finding (navigational concept) Laboratory test result [facility] ([facility]) ID Date Data Source [id number] 12/02/2020 12:09:00 PM EDT [facility] Name Value Range Interpretation Code Description Data Donna rce(s) Supporting Document(s) BLOOD TYPE B POSITIVE [facility] ID Date Data Source [id number] 12/02/2020 08:30:00 AM EDT [facility] ([facility]) Name Value Range Interpretation Code Description Data Donna rce(s) Supporting Document(s) [id number] Rheonix Laboratory test result [facility] ([facility] ) The Rheonix COVID-19 MDx Assay is an end point RT-PCR assay intended for the qualitative detection [...] Food and Drug Administration's Emergency Use Authorization. ID Date Data Source [id number] 12/02/2020 08:30:00 AM EDT [facility] ([facility]) Name Value Range Interpretation Code Description Data Donna rce(s) Supporting Document(s) [id number] [facility] Laboratory test [facility] The Rheonix COVID-19 MDx Assay is an end point RT-PCR assay intended for the qualitative detection [...] Food and Drug Administration's Emergency Use Authorization. ID Date Data Source [id number] 12/02/2020 08:30:00 AM EDT [facility] Name Value Range Interpretation Code Description Data Donna rce(s) Supporting Document(s) LCOVID-19 RHEONIX ASSAY Negative [facility] This lab was ordered by [facility] and reported by [facility]. ID Date Data Source [id number] 12/03/2020 11:06:00 AM EDT [facility] COMMENTS TO LAB: 56LAB Con't: PREO P TESTINGIs patient suspicious of Covid NShould patient be placed on Covid precautions N Name Value Range Interpretation Code Description Data Donna rce(s) Supporting Document(s) COVID19 RHEONIX Negative NEGATIVE N [facility] The Rheonix COVID-19 MDx Assay is an end point RT-PCR assayintended for the qualitative detection of nucleic acid nbusANXW-RqW-3 virus. Positive results are indicative of thepresence of SARS-CoV-2 RNA; clinical correlation withpatient history and other diagnostic information isnecessary to determine patient infection status. Negativeresults do not preclude SARS-CoV-2 infection and should notbe used as the sole basis for patient management decisions. The Rheonix MDx Assay is only for use under the Food andDrug Administration's Emergency Use Authorization. ID Date Data Source [id number] 11/17/2020 09:58:00 AM EDT [facility] ([facility]) Name Value Range Interpretation Code Description Data Donna rce(s) Supporting Document(s) Blood Urea Nitrogen 15 mg/dL 7-18 [facility] Glucose, Fasting 103 mg/dL 70-100 [facility] ([facility] ) Creatinine For GFR 0.91 mg/dL 0.55-1.30 [facility] ([facility] ) Glomerular Filtration Rate Laboratory test result [facility] ([facility]) <content>Units are mL/min/1.73 m2</content>
<content></content>
<content>Chronic Kidney Disease Staging per NKF:</content>
<content></content>
<content>Stage I & II GFR >=60 Normal to Mildly Decreased</content>
<content>Stage III GFR 30- 59 Moderately Decreased</content>
<content>Stage IV GFR 15-29 Severely Decreased</content>
<content>Stage V GFR <15 Very Little GFR Left</content>
<content>ESRD GFR <15 on IS SUPPORT ANALYST</content>
<content></content> Potassium Serum 4.8 meq/L 3.5-5.1 [facility] ([facility]) Sodium Level 143 meq/L 136-145 [facility] ([facility]) Carbon Dioxide Level 27 meq/L 21-32 [facility] ([facility]) Chloride Level 110 meq/L 98-107 [facility] ([facility]) Anion Gap 6 meq/L 8-16 [facility] ([facility]) Ast/Sgot 50 U/L 7-37 [facility] ([facility]) Calcium Level 9.3 mg/dL 8.8-10.2 [facility] ([facility]) Alkaline Phosphatase 77 U/L 45-117 [facility] ([facility]) Bilirubin,Total 0.4 mg/dL 0.2-1.0 [facility] ([facility] ) Alt/SGPT 55 U/L 12-78 [facility] ([facility]) Total Protein 7.0 GM/DL 6.4-8.2 [facility] ([facility]) Albumin 3.9 GM/DL 3.2-5.2 [facility] ([facility]) Albumin/Globulin Ratio 1.3 1.2-2.2 [facility] ([facility]) ID Date Data Source [id number] 11/17/2020 09:58:00 AM EDT [facility] ([facility]) Name Value Range Interpretation Code Description Data Donna rce(s) Supporting Document(s) Erythrocyte sedimentation rate by Westergren method 17 mm/hr 0-30 [facility] ([facility]) ID Date Data Source [id number] 11/17/2020 09:58:00 AM EDT [facility] ([facility]) Name Value Range Interpretation Code Description Data Donna rce(s) Supporting Document(s) White Blood Count 5.8 10 4.0-10.0 [facility] ([facility] Red Blood Count 4.62 10 4.00-5.40 [facility] ([facility]) Mean Corpuscular Volume 73.6 fl 80.0-96.0 M [facility] ([facility]) Hemoglobin 10.0 g/dL 12.0-15.5 [facility] ([facility]) Hematocrit 34.0 % 36.0-47.0 [facility] ([facility]) Mean Corpuscular HGB Conc 29.4 g/dL 32.0-36.5 [facility] ([facility]) Red Cell Distribution Width 17.1 % 11.5-14.5 [facility] ([facility]) Mean Corpuscular Hemoglobin 21.6 pg 27.0-33.0 [facility] ([facility]) Platelet Count, Automated 196 10 150-450 [facility] ([facility]) Nucleated Red Blood Cell % 0.0 % 0-0 [facility] ([facility]) ID Date Data Source [id number] 11/17/2020 09:58:00 AM EDT [facility] ([facility]) Name Value Range Interpretation Code Description Data Donna rce(s) Supporting Document(s) Prothrombin Time 13.3 s 12.5-14.3 [facility] ([facility]) Inr 0.99 [facility] ([facility] THERAPUTIC HUMAN INR VALUES INDICATIONS NORMAL RANGES PROPHYLAXIS/TREATMENT OF: VENOUS THROMBOSIS 2.0-3.0 PULMONARY EMBOLISM 2.0-3.0 PREVENTION OF SYSTEMIC EMBOLISM FROM: TISSUE HEART VALVES 2.0-3.0 ACUTE MYOCARDIAL INFARCTION 2.0-3.0 VALVULAR HEART DISEASE 2.0-3.0 ATRIAL FIBRILLATION 2.0-3.0 MECHANICAL VALVES(HIGH RISK) 2.5-3.5 RECURRENT MYOCARDIAL INFARCTION 2.5-3.5 ID Date Data Source [id number] 11/17/2020 09:58:00 AM EDT [facility] ([facility]) Name Value Range Interpretation Code Description Data Donna rce(s) Supporting Document(s) White Blood Count 5.8 10 4.0-10.0 [facility] ([facility]) Hemoglobin 10.0 g/dL 12.0-15.5 [facility] ([facility]) Red Blood Count 4.62 10 4.00-5.40 [facility] ([facility]) Hematocrit 34.0 % 36.0-47.0 [facility] Mean Corpuscular Volume 73.6 fl 80.0-96.0 [facility] ([facility]) Mean Corpuscular Hemoglobin 21.6 pg 27.0-33.0 [facility] ([facility]) Mean Corpuscular HGB Conc 29.4 g/dL 32.0-36.5 [facility] ([facility]) Red Cell Distribution Width 17.1 % 11.5-14.5 [facility] ([facility]) Platelet Count, Automated 196 10 150-450 [facility] ([facility]) Nucleated Red Blood Cell % 0.0 % 0-0 [facility] ([facility]) ID Date Data Source [id number] 11/17/2020 09:58:00 AM EDT [facility] ([facility]) Name Value Range Interpretation Code Description Data Donna rce(s) Supporting Document(s) Erythrocyte sedimentation rate by Westergren method 17 mm/hr 0-30 [facility] ([facility]) ID Date Data Source [id number] 11/17/2020 09:58:00 AM EDT [facility] ([facility]) Name Value Range Interpretation Code Description Data Donna rce(s) Supporting Document(s) Blood Urea Nitrogen 15 mg/dL 7-18 [facility] ([facility]) Glucose, Fasting 103 mg/dL 70-100 [facility] ([facility]) Glomerular Filtration Rate Laboratory test result [facility] ([facility]) <content>Units are mL/min/1.73 m2</content>
<content></content>
<content>Chronic Kidney Disease Staging per NKF:</content>
<content></content>
<content>Stage I & II GFR >=60 Normal to Mildly Decreased</content>
<content>Stage III GFR 30- 59 Moderately Decreased</content>
<content>Stage IV GFR 15-29 Severely Decreased</content>
<content>Stage V GFR <15 Very Little GFR Left</content>
<content>ESRD GFR <15 on IS SUPPORT ANALYST</content>
<content></content> Sodium Level 143 meq/L 136-145 [facility] ([facility]) Creatinine For GFR 0.91 mg/dL 0.55-1.30 [facility] ([facility]) Potassium Serum 4.8 meq/L 3.5-5.1 [facility] ([facility]) Chloride Level 110 meq/L 98-107 [facility] ([facility]) Calcium Level 9.3 mg/dL 8.8-10.2 [facility] ([facility]) Carbon Dioxide Level 27 meq/L 21-32 [facility] ([facility]) Anion Gap 6 meq/L 8-16 [facility]) Alt/SGPT 55 U/L 12-78 [facility]) Ast/Sgot 50 U/L 7-37 [facility] Bilirubin,Total 0.4 mg/dL 0.2-1.0 [facility] ([facility]) Alkaline Phosphatase 77 U/L 45-117 [facility] ([facility]) Total Protein 7.0 GM/DL 6.4-8.2 [facility] Albumin 3.9 GM/DL 3.2-5.2 [facility] ([facility]) Albumin/Globulin Ratio 1.3 1.2-2.2 [facility] ID Date Data Source [id number] 11/17/2020 09:58:00 AM EDT [facility] Name Value Range Interpretation Code Description Data Donna rce(s) Supporting Document(s) Prothrombin Time 13.3 s 12.5-14.3 [facility] Inr 0.99 [facility] ([facility]) THERAPUTIC HUMAN INR VALUES INDICATIONS NORMAL RANGES PROPHYLAXIS/TREATMENT OF: VENOUS THROMBOSIS 2.0-3.0 PULMONARY EMBOLISM 2.0-3.0 PREVENTION OF SYSTEMIC EMBOLISM FROM: TISSUE HEART VALVES 2.0-3.0 ACUTE MYOCARDIAL INFARCTION 2.0-3.0 VALVULAR HEART DISEASE 2.0-3.0 ATRIAL FIBRILLATION 2.0-3.0 MECHANICAL VALVES(HIGH RISK) 2.5-3.5 RECURRENT MYOCARDIAL INFARCTION 2.5-3.5 ID Date Data Source [id number] 08/17/2020 09:58:00 AM EDT [facility] Name Value Range Interpretation Code Description Data Donna rce(s) Supporting Document(s) Folate Laboratory test result [facility] FOLATE NORMAL RANGE NORMAL GREATER THAN 5.4 NG/ML INDETERMINATE 3.4-5.4 NG/ML DEFICIENT LESS THAN 3.4 NG/ML Vitamin B12 Level Laboratory test result [facility] VITAMIN B12 NORMAL RANGE NORMAL 247 - 911 PG/ML INDETERMINATE 211 - 246 PG/ML DEFICIENT LESS THAN 211 PG/ML ID Date Data Source [id number] 08/17/2020 09:57:00 AM EDT [facility] Name Value Range Interpretation Code Description Data Donna rce(s) Supporting Document(s) Thyrotropin [Units/volume] in Serum or Plasma by Detec tion limit <= 0.05 mIU/L 2.60 uIU/mL 0.36-3.74 [facility] ([facility] ) ID Date Data Source [id number] 08/17/2020 09:57:00 AM EDT [facility] ([facility]) Name Value Range Interpretation Code Description Data Donna rce(s) Supporting Document(s) Urea nitrogen [Mass/volume] in Serum or Plasma 17 mg/dL 7-18 [facility] ([facility]) Glucose [Mass/volume] in Serum or Plasma 89 mg/dL 74-99 [facility] ([facility]) 100-125 mg/dL PRE-DIABETES/FASTING >126 mg/dL DIABETES/FASTING Creatinine 0.8 mg/dL 0.6-1.3 [facility] ([facility]) Sodium [Moles/volume] in Serum or Plasma 141 meq/L 136-145 [facility] ([facility]) Chloride [Moles/volume] in Serum or Plasma 104 meq/L 98-107 [facility] ([facility]) Potassium [Moles/volume] in Serum or Plasma 4.6 meq/L 3.5-5.1 [facility] ([facility]) Calcium [Mass/volume] in Serum or Plasma 9.3 mg/dL 8.5-10.1 [facility] ([facility]) Carbon dioxide, total [Moles/volume] in Serum or Plasma 28 meq/L 21 -32 [facility] ([facility]) Alkaline phosphatase isoenzyme [Units/volume] in Serum or Pl asma 73 mg/dL 46-116 [facility] Total Bilirubin 0.4 mg/dL 0.2-1.0 [facility] ([facility]) Aspartate aminotransferase [Enzymatic activity/volume] in Serum or Plasma 49 U/L 15-37 [facility] ([facility] ) Alanine aminotransferase [Enzymatic activity/volume] in Seru m or Plasma 55 U/L 12-78 [facility] ([facility]) Albumin [Mass/volume] in Serum or Plasma 4.1 g/dL 3.4-5.0 [facility] ([facility]) Proteinase 3 Ab [Units/volume] in Serum 7.6 g/dL 6.4-8.2 [facility] A/G Ratio 1.17 CALC 1.00-1.90 [facility]) Glomerular filtration rate/1.73 sq M pre dicted among non-blacks [Volume Rate/Area] in Serum or Plasma by Creatinine-based formula (MDRD) Laboratory test result [facility] ([facility] ) Glomerular filtration rate/1.73 sq M pre dicted among blacks [Volume Rate/Area] in Serum or Plasma by Creatinine-based formula (MDRD) Laboratory test result [facility] ([facility] <content>CHRONIC KIDNEY DISEASE STAGING PER NKF</content>
<content></content>
<content>STAGE I & II GFR >= 60 NORMAL TO MILDLY DECREASED</content>
<content>STAGE III GFR 30-59 MODERATELY DECREASED</content>
<content>STAGE IV GFR 15-29 SEVERELY DECREASED</content>
<content>STAGE V GFR <15 VERY LITTLE GFR LEFT</content>
<content>ESRD GFR <15 ON IS SUPPORT ANALYST</content>
<content></content> ID Date Data Source [id number] 08/17/2020 09:57:00 AM EDT [facility]) Name Value Range Interpretation Code Description Data Donna rce(s) Supporting Document(s) Hemoglobin A1c/Hemoglobin.total in Blood 7.2 % [facility] ([facility]) Lab Result Notes: Pre-Diabetes 5.7 - 6.4 % Diabetes = or > 6.5% Glucose mean value [Mass/volume] in Blood Estimated fr om glycated hemoglobin 160 mg/dL 60-110 [facility] ID Date Data Source [id number] 08/17/2020 09:57:00 AM EDT [facility]) Name Value Range Interpretation Code Description Data Donna rce(s) Supporting Document(s) Leukocytes [#/volume] in Blood by Automated count 5.9 x10*3/UL 4.1-10 .9 [facility] Erythrocytes [#/volume] in Blood by Automated count 4.76 x10*6/UL 4.2 0-6.30 [facility] Hemoglobin [Mass/volume] in Blood 10.6 g/dL 12.0-18.0 [facility] ([facility]) NOTE: RESULT VERIFIED. Hematocrit [Volume Fraction] of Blood by Automated count 33.3 % 3 7.0-51.0 [facility] ([facility]) MCV 70.0 fL 80.0-97.0 [facility]) MCH 22.4 pg 26.0-32.0 [facility]) MCHC 32.0 g/dL 31.0-38.0 [facility] MPV 8.5 FL 7.8-11.0 [facility] Erythrocyte distribution width [Ratio] by Automated count 15.3 % 11.6-13.7 [facility] ([facility]) Platelets [#/volume] in Blood by Automated count 218 x10*3/UL 140-440 [facility] ([facility]) Lymph % 27.6 % 10.0-58.5 [facility]) Mid % 7.2 % 1.7-9.3 [facility] Neut % 65.2 % 37.0-92.0 [facility] Lymph # 1.6 x10*3/UL 0.6-4.1 [facility] ([facility]) Mid # 0.5 x10*3/UL 0.1-0.6 [facility] ([facility]) Neut # 3.8 x10*3/UL 2.0-7.8 [facility] ([facility]) ID Date Data Source [id number] 05/05/2020 12:00:00 AM EST [facility] Patient Name: JABARI GONZALES [id number] [facility] Date of : 1955R[place] [address]- Date of Exam: [facility]#: Fax: [phone] EXAM: CT LOWER EXTREMITY W/O CONTRASTCLINICAL INFORMATION: Pain.No prior CT's for comparison.Prior plain film examination 10/19/2019 was reviewed.Low dose 64-slice contiguous helical scanning through the left hip wasobtained using 2 mm increments and reconstruction in both sagittal andcoronal planes.Even with use of O-MAR there is some detail mixed spray artifact. Thefemoral and acetabular component of the hip prosthesis appear well seatedand well approximated. The alignment appears near anatomical. No definiteabnormal periprosthetic lucencies are identified. There is hypertrophicbone formation seen anterior to the proximal femur at the level of the midprosthetic femoral shaft component. There is no evidence of an acutefracture, dislocation, or subluxation. There is no CT evidence of a grosseffusion. Certainly, small effusion could be obscured by artifact.IMPRESSION:There is no evidence of a definite acute abnormality. Findings asdescribed above. If prosthetic loosening is of clinical concern consider atriple phase bone scan.Accredited by the [employer] [place] [employer] in [place].ROSALES Colon/Ada you for referring JABARI GONZALES to our office. Electronically Signed - ANEUDY DAVIS DO 05/05/20 18:13 Name Value Range Interpretation Code Description Data Donna rce(s) Supporting Document(s) ID Date Data Source [id number] 04/28/2020 12:00:00 AM EST [facility] Torri Liu MD Patient Name: FOREIGN [facility]ES [facility] 1955[facility] [address] Date of Exam: 04/28/2020#: Fax: [phone] EXAM: MAMMO SCREENING WITH CADCLINICAL INFORMATION: Screening.Based on the personal and family history information your patient suppliedat the time of imaging, her lifetime risk of breast cancer estimated by theTyrer-Cuzick model is 11.9%. Given that this patient has less than 20% TCrisk score, no further medical management is currently recommended at thistime.Digital screening (2D) mammography was performed bilaterally in the CC andMLO projections. Ad ditionally, breast tomosynthesis (3D mammography) wasperformed bilaterally in the CC and MLO projections. Today's exam wascompared to the prior exam(s).By history, the patient has no complaints of a palpable breast abnormalityor other significant breast complaints.The patient states last clinical breast exam was in February of 2020.The breasts are unchanged in size and shape. There are no shashi-soft tissuedensities or spiculated masses. There is no internal architecturaldistortion. There are no suspicious shashi-calcific clusters. Skinthickening or nipple retraction is not present.The Volpara volumetric breast density category is B, there are scatteredareas of fibroglandular density.IMPRESSION:BI-RADS Category 1 - Negative Mammogram. Stable mammogram. There is noevidence of malignant alteration of the breasts. Followup examinationrecommended in one year.This mammogram was read with the assistance of Mitch GARCIA, an FDAapproved computer aided detection system for mammography.Negative x-ray reports should not delay surgical consultation if a dominantor clinically suspicious mass is present.Not all breast cancers can be identified by mammography. Therefore, werecommend that you continue to perform regular breast self-examination andphysical examination and then promptly contact your physician of anyconcerns or changes.Adenosis and dense breasts may obscure an underlying neoplasm.ROSALES Colon/Amadeo you for referring JABARI GONZALES to our office.Electronically Signed - ANEUDY DAVIS DO 05/02/20 13:14 Name Value Range Interpretation Code Description Data Donna rce(s) Supporting Document(s) ID Date Data Source [id number] 03/21/2020 09:48:00 AM EST [facility] ([facility]) Name Value Range Interpretation Code Description Data Donna rce(s) Supporting Document(s) Iron (Fe) 39 ug/dL 50-170 [facility] ([facility]) Total Iron Binding Capacity 472 ug/dL 250-450 [facility] ([facility]) Percent Saturation 8.3 % 13.2-45.0 [facility] ([facility]) ID Date Data Source [id number] 03/21/2020 09:47:00 AM EST [facility] ([facility]) Name Value Range Interpretation Code Description Data Donna rce(s) Supporting Document(s) Erythrocytes [#/volume] in Blood by Automated count 5.01 x10*6/UL 4.2 0-6.30 [facility] ([facility]) Leukocytes [#/volume] in Blood by Automated count 7.1 x10*3/UL 4.1-10 .9 [facility] ([facility]) Hemoglobin [Mass/volume] in Blood 11.4 g/dL 12.0-18.0 [facility] ([facility]) NOTE: RESULT VERIFIED. Hematocrit [Volume Fraction] of Blood by Automated count 35.3 % 3 7.0-51.0 [facility] ([facility]) MCV 70.4 fL 80.0-97.0 [facility]) MCHC 32.5 g/dL 31.0-38.0 [facility] ([facility]) MCH 22.9 pg 26.0-32.0 [facility] ([facility]) Erythrocyte distribution width [Ratio] by Automated count 16.7 % 11.6-13.7 [facility] ([facility]) Platelets [#/volume] in Blood by Automated count 194 x10*3/UL 140-440 [facility] ([facility]) MPV 8.8 FL 7.8-11.0 [facility]) Lymph % 21.8 % 10.0-58.5 [facility] Mid % 6.2 % 1.7-9.3 [facility] Lymph # 1.5 x10*3/UL 0.6-4.1 [facility] ([facility]) Neut % 72.0 % 37.0-92.0 [facility] Mid # 0.5 x10*3/UL 0.1-0.6 [facility] ([facility]) Neut # 5.1 x10*3/UL 2.0-7.8 [facility] ([facility]) ID Date Data Source [id number] 03/01/2020 12:00:00 PM EST [facility] ([facility]) Name Value Range Interpretation Code Description Data Donna e(s) Supporting Document(s) TP Reflex HPV ASCUS Laboratory test result [facility] ([facility]) SPECIMEN PART------ A. Vaginal, ThinPrep Pap (Copy Coordinator) CYTOLOGY HX-------- Other Information: Hysterectomy Previous Normal Pap: 02/24/19 FINAL DIAGNOSIS---- INTERPRETATION: Negative for Intraepithelial Lesion or Malignancy. SPECIMEN ADEQUACY:Satisfactory for evaluation. TP Reflex HPV ASCUS Laboratory test result [facility] ([facility]) ID Date Data Source [id number] 02/17/2020 07:38:00 AM EDT [facility] ([facility]) Name Value Range Interpretation Code Description Data Donna rce(s) Supporting Document(s) Percent Saturation 8.1 % 13.2-45.0 [facility] ([facility]) Total Iron Binding Capacity 422 ug/dL 250-450 [facility] ([facility]) Iron (Fe) 34 ug/dL 50-170 [facility]) ID Date Data Source [id number] 02/17/2020 07:37:00 AM EDT [facility] ([facility]) Name Value Range Interpretation Code Description Data Donna rce(s) Supporting Document(s) Urine Creatinine 97.9 mg/dL 30.0-125.0 [facility] ([facility]) Microalbumin Urine 6.5 mg/L 1.3-20.0 [facility] ([facility]) Microalb/Creat Ratio 6.6 ug/mg 0.0-30.0 [facility] ([facility]) ID Date Data Source [id number] 02/17/2020 07:37:00 AM EDT [facility] ([facility]) Name Value Range Interpretation Code Description Data Donna rce(s) Supporting Document(s) Glucose [Mass/volume] in Serum or Plasma 125 mg/dL 74-99 [facility] ([facility]) 100-125 mg/dL PRE-DIABETES/FASTING >126 mg/dL DIABETES/FASTING Sodium [Moles/volume] in Serum or Plasma 142 meq/L 136-145 [facility] ([facility]) Urea nitrogen [Mass/volume] in Serum or Plasma 13 mg/dL 7-18 [facility] ([facility]) Potassium [Moles/volume] in Serum or Plasma 4.7 meq/L 3.5-5.1 [facility] ([facility]) Creatinine 0.8 mg/dL 0.6-1.3 [facility] Chloride [Moles/volume] in Serum or Plasma 105 meq/L 98-107 [facility] ([facility]) Calcium [Mass/volume] in Serum or Plasma 9.1 mg/dL 8.5-10.1 [facility] ([facility]) Carbon dioxide, total [Moles/volume] in Serum or Plasma 30 meq/L 21 -32 [facility] ([facility]) Alkaline phosphatase isoenzyme [Units/volume] in Serum or Pl asma 85 mg/dL 46-116 [facility] ([facility]) Total Bilirubin 0.4 mg/dL 0.2-1.0 [facility] ([facility]) Aspartate aminotransferase [Enzymatic activity/volume] in Serum or Plasma 46 U/L 15-37 [facility] ([facility] ) Alanine aminotransferase [Enzymatic activity/volume] in Seru m or Plasma 51 U/L 12-78 [facility] ([facility]) Proteinase 3 Ab [Units/volume] in Serum 7.1 g/dL 6.4-8.2 [facility] ([facility]) A/G Ratio 1.15 CALC 1.00-1.90 [facility]) Albumin [Mass/volume] in Serum or Plasma 3.8 g/dL 3.4-5.0 [facility] ([facility]) Glomerular filtration rate/1.73 sq M pre dicted among non-blacks [Volume Rate/Area] in Serum or Plasma by Creatinine-based formula (MDRD) Laboratory test result [facility] ([facility] ) Glomerular filtration rate/1.73 sq M pre dicted among blacks [Volume Rate/Area] in Serum or Plasma by Creatinine-based formula (MDRD) Laboratory test result [facility] <content>CHRONIC KIDNEY DISEASE STAGING PER NKF</content>
<content></content>
<content>STAGE I & II GFR >= 60 NORMAL TO MILDLY DECREASED</content>
<content>STAGE III GFR 30-59 MODERATELY DECREASED</content>
<content>STAGE IV GFR 15-29 SEVERELY DECREASED</content>
<content>STAGE V GFR <15 VERY LITTLE GFR LEFT</content>
<content>ESRD GFR <15 ON IS SUPPORT ANALYST</content>
<content></content> ID Date Data Source [id number] 02/17/2020 07:37:00 AM EDT [facility] ([facility]) Name Value Range Interpretation Code Description Data Donna rce(s) Supporting Document(s) Hemoglobin A1c/Hemoglobin.total in Blood 7.0 % [facility] Lab Result Notes: Pre-Diabetes 5.7 - 6.4 % Diabetes = or > 6.5% Glucose mean value [Mass/volume] in Blood Estimated fr om glycated hemoglobin 154 mg/dL 60-110 [facility] ID Date Data Source [id number] 02/17/2020 07:37:00 AM EDT [facility] Name Value Range Interpretation Code Description Data Donna rce(s) Supporting Document(s) Leukocytes [#/volume] in Blood by Automated count 5.6 x10*3/UL 4.1-10 .9 [facility] Hemoglobin [Mass/volume] in Blood 10.7 g/dL 12.0-18.0 [facility] NOTE: RESULT VERIFIED. Erythrocytes [#/volume] in Blood by Automated count 4.77 x10*6/UL 4.2 0-6.30 [facility] ([facility] Hematocrit [Volume Fraction] of Blood by Automated count 32.8 % 3 7.0-51.0 [facility] MCV 68.8 fL 80.0-97.0 [facility] ([facility]) MCHC 32.6 g/dL 31.0-38.0 [facility] ([facility]) MCH 22.4 pg 26.0-32.0 [facility] ([facility]) MPV 9.0 FL 7.8-11.0 [facility] ([facility]) Erythrocyte distribution width [Ratio] by Automated count 16.2 % 11.6-13.7 [facility] Platelets [#/volume] in Blood by Automated count 191 x10*3/UL 140-440 [facility] Lymph # 1.3 x10*3/UL 0.6-4.1 [facility] Lymph % 23.4 % 10.0-58.5 [facility] ([facility]) Neut % 70.0 % 37.0-92.0 [facility] Mid % 6.6 % 1.7-9.3 [facility] Mid # 0.4 x10*3/UL 0.1-0.6 [facility] ([facility]) Neut # 3.9 x10*3/UL 2.0-7.8 [facility] ([facility]) Procedure Social History Code Duration Value Status Description Data Source(s ) Smoking 01/05/2021 12:00:00 AM EDT Patient has never smoked co mpleted Patient has never smoked [facility] ([facility]) Smoking 12/16/2020 10:13:16 AM EDT Ex-smoker (finding) complet ed Ex-smoker (finding) KIKA (Dat Delgado MD [facility]) Smoking 09/15/2020 12:00:00 AM EDT Patient is a former smoker completed Patient is a former smoker [facility] ([facility]) Smoking 03/01/2020 12:00:00 AM EST Patient is a former smoker completed Patient is a former smoker [facility] ([facility]) Vital Signs ID Date Data Source UNK Name Value Range Interpretation Code Description Data Source(s) Systolic blood pressure 133 mm[Hg] 133 mm[Hg] M [facility] ([facility]) Diastolic blood pressure 80 mm[Hg] 80 mm[Hg] [facility] ([facility]) Heart rate 86 /min 86 /min [facility] ([facility]) Respiratory rate 18 /min 18 /min [facility] ( [facility]) Oxygen saturation in Arterial blood by Pulse oximetry 99 % 99 % [facility] ([facility]) Body temperature 98.0 [degF] 98.0 [degF] [facility] ([facility]) Body weight 180.00 [lb_av] 180.00 [lb_av] MED[facility] T ([facility]) Body height 67 [in_i] 67 [in_i] [facility] ([facility]) 5'7" Body mass index (BMI) [Ratio] 28.2 kg/m2 28.2 k g/m2 [facility] ([facility]) Body weight 181.12 [lb_av] 181.12 [lb_av] [facility] T ([facility] ) Body mass index (BMI) [Ratio] 29.7 kg/m2 29.7 k g/m2 [facility] ([facility] ) Body temperature 97.5 [degF] 97.5 [degF] [facility] ([facility] ) Body height 65.5 [in_i] 65.5 [in_i] [facility] ([facility] 5'5.50" Body mass index (BMI) [Ratio] 30.6 kg/m2 30.6 k g/m2 [facility] ([facility]) Systolic blood pressure 142 mm[Hg] 142 mm[Hg] [facility] ([facility]) Diastolic blood pressure 72 mm[Hg] 72 mm[Hg] [facility] ([facility]) Heart rate 78 /min 78 /min [facility] ([facility]) Body height 65 [in_i] 65 [in_i] [facility] ([facility]) 5'5" Body weight 184.00 [lb_av] 184.00 [lb_av] [facility] T ([facility]) Body mass index (BMI) [Ratio] 28.2 kg/m2 28.2 k g/m2 [facility] ([facility]) Body height 67 [in_i] 67 [in_i] [facility] ([facility] ) 5'7" Body weight 180.00 [lb_av] 180.00 [lb_av] [facility] T ([facility]) Diastolic blood pressure 82 mm[Hg] 82 mm[Hg] [facility] ([facility], ) Body height 67 [in_i] 67 [in_i] [facility] ([facility], ) 5'7" Systolic blood pressure 122 mm[Hg] 122 mm[Hg] M EDENT ([facility], ) Body weight 183.00 [lb_av] 183.00 [lb_av] [facility] T ([facility], ) Body mass index (BMI) [Ratio] 28.7 kg/m2 28.7 k g/m2 [facility] ([facility], ) [place] body weight 135 [lb_av] 135 [lb_av] [facility] T ([facility], ) Body weight 83.009 kg 83.009 kg [facility] ([facility], ) Body surface area Derived from formula 1.95 m2 1.95 m2 [facility] ([facility]) Body mass index (BMI) [Ratio] 27.4 kg/m2 27.4 k g/m2 MEDENT ([facility]) Heart rate 116 /min 116 /min MEDENT ([facility]) Body height 67 [in_i] 67 [in_i] MEDENT ([facility]) 5'7" Body weight 175.00 [lb_av] 175.00 [lb_av] MEDEN T ([facility]) Body temperature 97.5 [degF] 97.5 [degF] MEDENT ([facility]) Oxygen saturation in Arterial blood by Pulse oximetry 99 % 99 % MEDENT ([facility]) Heart rate 68 /min 68 /min [facility] ([facility]) Body height 65 [in_i] 65 [in_i] MEDENT ([facility]) 5'5" Body weight 184.00 [lb_av] 184.00 [lb_av] MEDEN T ([facility]) Body mass index (BMI) [Ratio] 30.6 kg/m2 30.6 k g/m2 MEDENT ([facility]) Systolic blood pressure 130 mm[Hg] 130 mm[Hg] EDENT ([facility]) Diastolic blood pressure 72 mm[Hg] 72 mm[Hg] MEDENT ([facility]) Body weight 180.00 [lb_av] 180.00 [lb_av] MEDEN T ([facility] ) Body temperature 97.3 [degF] 97.3 [degF] MEDENT ([facility] ) Body height 66.5 [in_i] 66.5 [in_i] MEDENT ([facility] ) 5'6.50" Body mass index (BMI) [Ratio] 28.6 kg/m2 28.6 k g/m2 MED[facility] ([facility] ) Body temperature 97.1 [degF] 97.1 [degF] MEDENT ([facility]) Body height 67 [in_i] 67 [in_i] MEDENT ([facility]) 5'7" Body weight 170.00 [lb_av] 170.00 [lb_av] MEDEN T ([facility]) Body mass index (BMI) [Ratio] 26.6 kg/m2 26.6 k g/m2 MEDENT ([facility]) Systolic blood pressure 146 mm[Hg] 146 mm[Hg] M EDENT ([facility] [facility] [employer]) Diastolic blood pressure 86 mm[Hg] 86 mm[Hg] MEDENT ([facility]) Body height 65.5 [in_i] 65.5 [in_i] MEDENT ([facility]) 5'5.50" Body weight 179.00 [lb_av] 179.00 [lb_av] MEDEN T ([facility]) Body mass index (BMI) [Ratio] 29.3 kg/m2 29.3 k g/m2 MED[facility] ([employer] [facility] [employer] [employer]) Body surface area Derived from formula 1.90 m2 1.90 m2 MEDENT ([facility] [facility] [employer]) Systolic blood pressure 132 mm[Hg] 132 mm[Hg] M EDENT ([facility]) Diastolic blood pressure 70 mm[Hg] 70 mm[Hg] MEDENT ([facility]) Body weight 181.00 [lb_av] 181.00 [lb_av] MEDEN T ([facility]) Body mass index (BMI) [Ratio] 30.1 kg/m2 30.1 k g/m2 MEDENT ([facility]) Body height 65 [in_i] 65 [in_i] MEDENT ([facility]) 5'5" Heart rate 68 /min 68 /min MEDENT ([facility]) ID Date Data Source [id number] 12/29/2020 01:28:00 PM EDT [facility] Name Value Range Interpretation Code Description Data Source(s) WEIGHT 81.81 kilos 81.81 kilos [facility] HEIGHT 170.18 centimeters 170.18 centimeter [facility]
[2021-03-02 23:05] LABS: INR 1.09; PROTHROMBIN TIME 14.5 SECONDS (12.7-14.5)
[2021-03-02] MEDS ORDERED: RIVAROXABAN 15 MG TAB (XARELTO) PO ONE (23:15)
[2021-03-02] MEDS ORDERED: XARE15TA PO (23:22)
[2021-03-09 09:08] LABS: ANTI THROMBIN 3 ANTIGEN IMMUNO 115 % (72-124); ANTI THROMBIN 3 FUNCT ACTIVITY 110 % (75-135); CARDIOLIPIN IGA ANTIBODY <9 APL U/mL (0-11); CARDIOLIPIN IGG ANTIBODY <9 GPL U/mL (0-14); CARDIOLIPIN IGM ANTIBODY 10 MPL U/mL (0-12); PHOSPHOLIPIDS LEVEL 184 mg/dL (150-250); PROTEIN C FUNCTIONAL ACTIVITY 92 % (73-180); PROTEIN S FUNCTIONAL ACTIVITY 65 % (63-140)
[2021-03-09 11:19] LABS: DRVV SCREEN 41.6 SEC
[2021-03-09 11:26] LABS: PTT LUPUS TYPE ANTICOAG SCREEN 1.1 (0-1.2)
== END 2021-03-02 23:39 | disposition home or self-care (01) ==
LOC: M ED 15:15
DX: I82.401 Acute embolism and thrombosis of unspecified deep veins of right lower extremity (principal); E11.9 Type 2 diabetes mellitus without complications; I10 Essential (primary) hypertension; K21.9 Gastro-esophageal reflux disease without esophagitis; Z79.84 Long term (current) use of oral hypoglycemic drugs; Z79.899 Other long term (current) drug therapy; Z91.048 Other nonmedicinal substance allergy status; Z88.8 Allergy status to other drugs, medicaments and biological substances; Z98.890 Other specified postprocedural states; Z98.0 Intestinal bypass and anastomosis status

== ENCOUNTER → 2021-03-02 | Outpatient (CLI) | payer MEDICARE, OTHER ==
[~2021-03-02] MED LIST changes: +XARE15TA PO
--- NOTE | 2021-03-02 14:35 | REP ---
INDICATION: PAIN IN RT LEG. COMPARISON: 01/27/2021 TECHNIQUE: Multiple ultrasonographic images of the deep venous structures of the right lower extremity were obtained from the inguinal ligament to the ankle. Venous compression techniques, color doppler imaging, and augmentation techniques were also obtained where appropriate. As per the ACR guidelines the anterior tibial vein can not be effectively evaluated. Only compression techniques in the calf on the peroneal and posterior tibial veins was attempted/performed. FINDINGS: There is no abnormal echogenic material seen within any of the visualized deep venous structures of the thigh that would suggest acute thrombosis. Coaptation is unremarkable throughout. Doppler interrogation shows an expected response to respiratory variability and augmentation in the thigh. Compression techniques in the calf showed inability to achieve coaptation of the myers of all portions of the posterior tibial vein and inability to visualize the peroneal vein.. The color flow images show what appears to be a normal vascular pattern throughout the thigh. Note is again made of a 3.4 cm sized Braun's cyst which appears unchanged. IMPRESSION: There is ultrasonographic evidence of calf DVT as described above. 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 There is no evidence of a DVT in the thigh. <Electronically signed by Rui Birmingham > 03/02/21 [id number]
== END ==
LOC: M RAD 13:37
PROVIDERS: ATTEND Physician Assistant Surgical
DX: M71.21 Synovial cyst of popliteal space [Baker], right knee (principal); M79.661 Pain in right lower leg

== ENCOUNTER → 2021-05-02 | Outpatient (REF) | payer MEDICARE, OTHER ==
[~2021-05-02] MED LIST changes: +XARE15TA PO
[2021-05-02 13:16] LABS: PERCENT SATURATION 5.1 % (13.2-45.0)
== END ==
LOC: M LAB REF 11:17
PROVIDERS: ATTEND Internal Medicine
DX: D50.9 Iron deficiency anemia, unspecified (principal)

== ENCOUNTER → 2021-05-12 | Outpatient (CLI) | payer MEDICARE, OTHER ==
[~2021-05-12] MED LIST changes: +OMEP-173 PO; -OMEP-218 PO
== END ==
LOC: M WHC 10:45
PROVIDERS: ATTEND Obstetrics & Gynecology
DX: Z12.31 Encounter for screening mammogram for malignant neoplasm of breast (principal)

== ENCOUNTER → 2021-07-04 | Outpatient (REF) | payer MEDICARE, OTHER ==
[2021-07-04 17:10] LABS: PERCENT SATURATION 3.4 % (13.2-45.0)
== END ==
LOC: M LAB REF 16:07
PROVIDERS: ATTEND Internal Medicine
DX: D50.9 Iron deficiency anemia, unspecified (principal)

== ENCOUNTER → 2021-09-04 | Outpatient (CLI) | payer MEDICARE, OTHER | LOC: M LABSMTC 09:50 | PROVIDERS: ATTEND Anesthesiology | DX: Z01.818 Encounter for other preprocedural examination (principal); Z20.822 Contact with and (suspected) exposure to COVID-19 ==

== ENCOUNTER 2021-09-08 08:12 | Day surgery (SDC) | payer MEDICARE, OTHER ==
[~2021-09-08] VITALS: Ht 170.2 cm; Wt 79.4 kg
[~2021-09-08 08:12] MED LIST changes: +LIDOCAINE 2% 100MG/5ML SDV (FOR ANES.) As Ordered ONE; +NS 1,000 ML IV ONE; +propofoL 200 MG/20 ML VIAL As Ordered ONE
[2021-09-08] MEDS ORDERED: GLUCAGON INJ 1MG VIAL As Ordered ONE (10:24)
[2021-09-08] MEDS ORDERED: propofoL 200 MG/20 ML VIAL As Ordered ONE (10:28)
[2021-09-08 10:50] VITALS: BP 116/69
== END 2021-09-08 11:00 | disposition home or self-care (01) ==
LOC: M OPP 08:12
PROVIDERS: ATTEND Internal Medicine Gastroenterology
DX: Z12.11 Encounter for screening for malignant neoplasm of colon (principal); Z80.0 Family history of malignant neoplasm of digestive organs; K63.5 Polyp of colon; K64.8 Other hemorrhoids; I10 Essential (primary) hypertension; E11.9 Type 2 diabetes mellitus without complications; Z79.82 Long term (current) use of aspirin; Z79.899 Other long term (current) drug therapy; Z88.5 Allergy status to narcotic agent; Z88.8 Allergy status to other drugs, medicaments and biological substances; Z86.718 Personal history of other venous thrombosis and embolism; Z98.84 Bariatric surgery status
CPT/HCPCS: 45385; 88305; J1610

== ENCOUNTER → 2021-10-09 | Outpatient (REF) | payer MEDICARE, OTHER ==
[~2021-10-09] MED LIST changes: -LIDOCAINE 2% 100MG/5ML SDV (FOR ANES.) As Ordered ONE; -NS 1,000 ML IV ONE; -propofoL 200 MG/20 ML VIAL As Ordered ONE
[2021-10-09 17:18] LABS: C REACTIVE PROTEIN QUANTITATIV < 0.30 MG/DL (0.00-0.30); RHEUMATOID FACTOR QUANT < 10.0 IU/ML (<15.0)
== END ==
LOC: M LAB REF 16:21
PROVIDERS: ATTEND Internal Medicine
DX: M70.61 Trochanteric bursitis, right hip (principal)

== ENCOUNTER → 2021-11-13 | Outpatient (REF) | payer MEDICARE, OTHER ==
[2021-11-13 12:41] LABS: IRON (FE) 21 UG/DL (50-170); TOTAL IRON BINDING CAPACITY 419 UG/DL (250-450)
[2021-11-13 13:17] LABS: FOLATE 11.6 NG/ML; VITAMIN B12 LEVEL > 2000 PG/ML
== END ==
LOC: M LAB REF 12:06
PROVIDERS: ATTEND Internal Medicine
DX: D50.9 Iron deficiency anemia, unspecified (principal)

== ENCOUNTER → 2022-03-30 | Outpatient (CLI) | payer MEDICARE, OTHER | LOC: M RAD 07:11 | PROVIDERS: ATTEND Orthopaedic Surgery | DX: Z96.641 Presence of right artificial hip joint (principal) | CPT/HCPCS: 78315; A9503 ==

== ENCOUNTER → 2022-05-07 | Outpatient (CLI) | payer MEDICARE, OTHER | LOC: M WHC 08:21 | PROVIDERS: ATTEND Advanced Practice Midwife | DX: Z12.31 Encounter for screening mammogram for malignant neoplasm of breast (principal) ==

== ENCOUNTER → 2022-05-18 | Outpatient (REF) | payer MEDICARE, OTHER ==
[2022-05-18 13:16] LABS: IRON (FE) 19 UG/DL (50-170); PERCENT SATURATION 4.9 % (13.2-45.0); TOTAL IRON BINDING CAPACITY 391 UG/DL (250-425)
[2022-05-18 13:20] LABS: FOLATE > 24.0 NG/ML (>5.4); TOTAL 25(OH) VITAMIN D 39.3 NG/ML (20.0-100.0)
[2022-05-18 13:22] LABS: VITAMIN B12 LEVEL > 2000 PG/ML (211-911)
== END ==
LOC: M LAB REF 12:14
PROVIDERS: ATTEND Internal Medicine
DX: D50.9 Iron deficiency anemia, unspecified (principal); Z98.84 Bariatric surgery status; Z79.899 Other long term (current) drug therapy

== ENCOUNTER → 2023-04-01 | Outpatient (CLI) | payer MEDICARE, OTHER ==
[~2023-04-01] MED LIST changes: +TRAZ-189
== END ==
LOC: M RAD 07:25
PROVIDERS: ATTEND Orthopaedic Surgery
DX: Z53.9 Procedure and treatment not carried out, unspecified reason (principal)

== ENCOUNTER → 2023-07-09 | Outpatient (CLI) | payer OTHER ==
[~2023-07-09] MED LIST changes: -BIOT50004 PO; +BIOT5CAP8 PO
== END ==
LOC: M WHC 13:01
PROVIDERS: ATTEND Advanced Practice Midwife
DX: Z12.31 Encounter for screening mammogram for malignant neoplasm of breast (principal)

== ENCOUNTER → 2023-11-04 | Outpatient (REF) | payer OTHER ==
[2023-11-04 13:47] LABS: PERCENT SATURATION 32.7 % (13.2-45.0)
[2023-11-04 13:50] LABS: FERRITIN 86.4 NG/ML (7.3-270.7)
== END ==
LOC: M LAB REF 12:32
PROVIDERS: ATTEND Internal Medicine
DX: D50.9 Iron deficiency anemia, unspecified (principal)

== ENCOUNTER → 2024-07-13 | Outpatient (CLI) | payer MEDICARE, OTHER ==
[~2024-07-13] MED LIST changes: +AMOX500T2; +ZOLP5TAB
== END ==
LOC: M WHC 09:09
PROVIDERS: ATTEND Advanced Practice Midwife
DX: Z12.31 Encounter for screening mammogram for malignant neoplasm of breast (principal); R92.313 Mammographic fatty tissue density, bilateral breasts

== ENCOUNTER → 2024-08-19 | Outpatient (REF) | payer MEDICARE ==
[2024-08-19 14:48] LABS: FERRITIN 31.2 NG/ML (7.3-270.7)
[2024-08-19 15:09] LABS: HEPATITIS B SURFACE ANTIGEN NEGATIVE (NEGATIVE)
[2024-08-19 15:30] LABS: HEPATITIS B CORE ANTIBODY IGM NEGATIVE (NEGATIVE); HEPATITIS C VIRUS ABY INDEX 0.03 INDEX (<0.8)
== END ==
LOC: M LAB REF 12:17
PROVIDERS: ATTEND Nurse Practitioner Family
DX: K75.81 Nonalcoholic steatohepatitis (NASH) (principal)

== ENCOUNTER → 2024-09-04 | Outpatient (REF) | payer MEDICARE ==
[2024-09-04 15:53] LABS: IRON (FE) 88 UG/DL (50-170); PHOSPHORUS LEVEL 3.8 MG/DL (2.4-5.1)
[2024-09-04 15:54] LABS: PERCENT SATURATION 24.7 % (13.2-45.0); TOTAL IRON BINDING CAPACITY 356 UG/DL (250-425)
[2024-09-04 15:55] LABS: FERRITIN 49.2 NG/ML (7.3-270.7)
[2024-09-04 15:56] LABS: TOTAL 25(OH) VITAMIN D 31.5 NG/ML (20.0-100.0); VITAMIN B12 LEVEL 1387 PG/ML (211-911)
[2024-09-04 16:14] LABS: FOLATE > 24.0 NG/ML (>5.4)
== END ==
LOC: M LAB REF 14:49
PROVIDERS: ATTEND Internal Medicine
DX: Z98.84 Bariatric surgery status (principal); Z79.899 Other long term (current) drug therapy